=== PATIENT | female | born 1995 | race Caucasian/White ===

== ENCOUNTER 2020-03-09 12:52 | Emergency (ER) | payer MEDICAID, SELFPAY ==
[2020-03-09 13:02] VITALS: BP 121/70; PULSE 80; RESP 18; TEMP 36.8; O2SAT 98; BMI 33.6
--- NOTE | 2020-03-09 13:22 | ED_ITS ---
HPI - URI/Sore Throat General Chief Complaint: Upper Respiratory Symptoms Stated Complaint: flu Time Seen by Provider: 03/09/20 13:14 Source: patient Mode of arrival: ambulatory Limitations: no limitations History of Present Illness MD elicited complaint: cough, rhinorrhea and nasal congestion Onset (ago): day(s) (1) Consistency: constant Severity: mild Description of mucous: clear Able to tolerate fluids by mouth: Yes Exacerbating factors: nothing Relieving factors: nothing Associated symptoms: myalgias Treatments prior to arrival: none Related Data Home Medications Medication Instructions Recorded Confirmed No Known Home Meds 03/09/20 03/09/20 Allergies Allergy/AdvReac Type Severity Reaction Status Date / Time No Known Allergies Allergy Unverified 11/01/19 18:18 [No Known Allergies*] Review of Systems Review of Systems: Yes all other systems are reviewed and are negative [facility], [facility] Past Medical History Medical History No known health problems Social History Social History Advance Directives: No Advance Directives Information Provided: No Physical Exam Vital Signs: Vital Signs: Last Vital Signs Temp 98.3 F 03/09/20 13:02 Pulse 80 03/09/20 13:02 Resp 18 03/09/20 13:02 BP 121/70 03/09/20 13:02 Pulse Ox 98 03/09/20 13:02 Body Mass Index 33.6 Appearance: Alert. Oriented X3. No acute distress. Eyes: Pupils equal, round and reactive to light. ENT: Pharynx normal. Clear rhinorrhea, sinus nontender Neck: Normal inspection. Neck supple. CVS: Normal heart rate and rhythm. Pulses normal. Respiratory: No respiratory distress. Breath sounds normal. Abdomen: Soft and nontender. Bowel sounds are present, no mass palpable, no CVA tenderness Skin: Skin warm and dry. Normal skin color. Normal skin turgor. Extremities: No lower extremity edema. Neuro: Oriented X 3. No motor deficit. No sensory deficit. MDM - URI/Sore Throat MDM Narrative Medical decision making narrative: Patient has upper respiratory symptoms COVID negative no COVID exposure perforation patient advised to keep social distancing likely viral and if the symptoms continues recheck COVID Lab Data Attestation: I reviewed the patient's lab results. Labs: Lab Results 03/09/20 Range/Units 13:51 COVID-19 ([facility]USHBOO) Negative (Negative) COVID-19 Clin Com See Note Discharge Plan Discharge Clinical Impression: Upper respiratory infection Patient Disposition: Home, Self-Care Instructions: Upper Respiratory Infection (ED) Additional Instructions: Drink plenty of fluids your COVID-19 is negative today. Keep social distancing and if not better repeat COVID-19 testing Prescriptions: No Action No Known Home Meds RF: 0 Interventions: ED Discharge Assessment Last Done: 03/09/20 15:39 Discharge Date/Time: 03/09/20 15:39
[2020-03-09 14:23] LABS: COVID-19 Test Negative (Negative)
== END 2020-03-09 15:39 | disposition home or self-care (01) ==
PROVIDERS: Emergency Provider Internal Medicine
DX: J06.9 Acute upper respiratory infection, unspecified (principal); R05 Cough; J34.89 Other specified disorders of nose and nasal sinuses; Z20.822 Contact with and (suspected) exposure to COVID-19
CPT/HCPCS: 36415; 87635; 99283

== ENCOUNTER → 2020-05-19 12:25 | Outpatient (BNVA) | payer MEDICAID, SELFPAY | PROVIDERS: Visit Provider Physician Assistant | DX: E66.9 Obesity, unspecified (principal); Z68.34 Body mass index [BMI] 34.0-34.9, adult | CPT/HCPCS: 99202 ==

== ENCOUNTER 2020-05-22 13:48 | Outpatient (REF) | payer MEDICAID, SELFPAY ==
--- NOTE | ~2020-05-22 | XR_ITS ---
EXAMINATION: XR ANKLE, LEFT CLINICAL INFORMATION: Pain COMPARISON: None TECHNIQUE: AP, lateral, and mortise views of the left ankle. FINDINGS: The bones and soft tissues are normal. No fracture. Alignment is anatomic. Joint spaces are maintained. No joint effusion. XR/XR ankle LT min 3V IMPRESSION: No fracture or dislocation.
== END 2020-05-22 13:49 | disposition home or self-care (01) ==
LOC: HO.XRAY 13:48
PROVIDERS: PCP Internal Medicine; Visit Provider Internal Medicine
DX: S93.402A Sprain of unspecified ligament of left ankle, initial encounter (principal)
CPT/HCPCS: 73610

== ENCOUNTER 2020-06-17 09:35 | Outpatient (REF) | payer MEDICAID, SELFPAY ==
[2020-06-17 10:56] LABS: MANUAL DIFF FLAG NO
[2020-06-17 11:01] LABS: Basophils Percent Auto 0.2 % (0-2); Eosinophils Absolute Auto 0.1 X10*3/uL (0.0-0.4); Eosinophils Percent Auto 1.3 % (0-4); Hematocrit 44.3 % (37-47); Hemoglobin 14.4 g/dl (12.0-16.0); Lymphocytes Absolute Auto 1.7 X10*3/uL (1.2-4.9); Lymphocytes Percent Auto 30.5 % (20-40); Mean Corpuscular HGB Conc 32.5 g/dl (31.0-35.0); Mean Corpuscular Hemoglobin 29.4 pg (27.0-33.0); Mean Corpuscular Volume 90.6 fL (80-98); Mean Platelet Volume 10.7 fL (9.4-12.3); Monocytes Absolute Auto 0.4 X10*3/uL (0.1-1.2); Neutrophils Absolute Auto 3.3 X10*3/uL (2.0-8.3); Platelet Count 199 X10*3/uL (160-400); Red Blood Count 4.89 X10*6/uL (4.20-5.50); Red Cell Distribution Width 13.4 % (11.0-16.0); White Blood Count 5.4 X10*3/uL (4.8-10.8)
[2020-06-17 11:26] LABS: Alanine Aminotransferase 9 U/L (0-31); Albumin Level 4.6 g/dL (3.5-5.0); Alkaline Phosphatase 78 U/L (39-117); Anion Gap 11 (12-20); Aspartate Amino Transferase 11 U/L (5-31); Bilirubin Total 0.5 mg/dL (0.0-1.0); Blood Urea Nitrogen 20 mg/dL (9-16); C Reactive Protein 0.07 mg/dL (< or = 0.50); Calcium 9.7 mg/dL (8.4-10.2); Carbon Dioxide 27 mmol/L (22-29); Chloride 108 mmol/L (96-108); Cholesterol 124 mg/dL; Estimated Glomerular Filt Rate > 60; Glucose Fasting 91 mg/dL (60-99); HDL Cholesterol 46 mg/dL; Iron 54 mcg/dL (30-160); LDL Cholesterol Calculated 72 mg/dl; Percent Iron Saturation 15 % (15-50); Potassium 4.7 mmol/L (3.3-5.1); Sodium 141 mmol/L (135-145); Total Iron Binding Capacity 355 mcg/dL (228-428); Total Protein 7.7 g/dL (6.5-8.0); Triglycerides 34 mg/dL; Unsaturated Iron Binding 301 ug/dL
[2020-06-17 11:42] LABS: Ferritin 9 ng/mL (10-122); TSH reflex Free T4 0.91 uIU/mL (0.32-4.0)
[2020-06-17 11:49] LABS: Estimated Average Glucose 91 mg/dL; Hemoglobin A1c % 4.8 %
[2020-06-17 12:29] LABS: Folate 15.1 ng/mL (> or = 4.0); Vitamin B12 611 pg/mL (200-900)
[2020-06-18 09:47] LABS: Insulin Level Total 9.4 uIU/mL
[2020-06-18 16:41] LABS: Calcium (PTHI) 9.6 mg/dL (8.6-10.2); PTHI 65 pg/mL (14-64)
[2020-06-19 21:22] LABS: Zinc 85 mcg/dL (60-130)
[2020-06-21 18:46] LABS: Vitamin A 33 mcg/dL (38-98)
[2020-06-22 10:41] LABS: Vitamin B1 13 nmol/L (8-30)
== END 2020-06-17 09:36 | disposition home or self-care (01) ==
LOC: HO.LAB 09:35
PROVIDERS: Visit Provider Physician Assistant
DX: E66.01 Morbid (severe) obesity due to excess calories (principal)
CPT/HCPCS: 36415; 80053; 80061; 82607; 82728; 82746; 83036; 83525; 83540; 83970; 84425; 84443; 84590; 84630; 85025; 86140

== ENCOUNTER → 2020-06-19 11:01 | Outpatient (BNVA) | payer MEDICAID, SELFPAY | PROVIDERS: PCP Internal Medicine; Referring Provider Internal Medicine; Visit Provider Dietitian, Registered | DX: E66.9 Obesity, unspecified (principal); Z68.33 Body mass index [BMI] 33.0-33.9, adult; Z98.51 Tubal ligation status; Z71.3 Dietary counseling and surveillance | CPT/HCPCS: 97802 ==

== ENCOUNTER 2020-07-16 13:12 | Emergency (ER) | payer MEDICAID, SELFPAY | END 2020-07-16 14:59 | disposition left against medical advice (07) | PROVIDERS: Emergency Provider Emergency Medicine; PCP Internal Medicine | DX: R11.0 Nausea (principal); R68.83 Chills (without fever) ==

== ENCOUNTER 2020-08-20 09:11 | Outpatient (REF) | payer MEDICAID, SELFPAY ==
[2020-08-25 18:52] LABS: Vitamin A 33 mcg/dL (38-98)
== END 2020-08-20 09:12 | disposition home or self-care (01) ==
LOC: HO.LAB 09:11
PROVIDERS: PCP Internal Medicine; Visit Provider Physician Assistant
DX: E50.9 Vitamin A deficiency, unspecified (principal); E66.9 Obesity, unspecified
CPT/HCPCS: 36415; 84590

== ENCOUNTER → 2020-09-02 11:20 | Outpatient (BNVA) | payer MEDICAID, SELFPAY | PROVIDERS: PCP Internal Medicine; Referring Provider Internal Medicine; Visit Provider Physician Assistant | DX: E66.9 Obesity, unspecified (principal); Z68.34 Body mass index [BMI] 34.0-34.9, adult | CPT/HCPCS: 99212 ==

== ENCOUNTER → 2020-09-24 08:14 | Outpatient (BNVA) | payer MEDICAID, SELFPAY | PROVIDERS: PCP Internal Medicine; Visit Provider Dietitian, Registered | DX: E66.9 Obesity, unspecified (principal); Z68.34 Body mass index [BMI] 34.0-34.9, adult | CPT/HCPCS: 97803 ==

== ENCOUNTER 2021-01-01 13:22 | Outpatient (REF) | payer MEDICAID, SELFPAY | END 2021-01-01 13:23 | disposition home or self-care (01) | LOC: HO.LAB 13:22 | PROVIDERS: PCP Internal Medicine; Visit Provider Internal Medicine | DX: Z20.822 Contact with and (suspected) exposure to COVID-19 (principal) | CPT/HCPCS: C9803; U0003; U0005 ==

== ENCOUNTER 2021-02-08 09:07 | Emergency (ER) | payer MEDICAID, SELFPAY ==
[2021-02-08 10:31] LABS: COVID-19 Test Positive (Negative)
[2021-02-08 16:33] VITALS: BP 128/94; PULSE 80; RESP 18; TEMP 37.2; O2SAT 96; BMI 36.6
--- NOTE | 2021-02-08 16:43 | ED_ITS ---
HPI - General Adult General Chief complaint: General Medical Stated complaint: Covid symptoms Time Seen by Provider: 02/08/21 09:08 Source: patient Mode of arrival: ambulatory Limitations: no limitations History of Present Illness HPI narrative: 25-year-old female here with reports of runny nose, cough and subjective fever since yesterday. The patient has no medical history. She is here with her daughters have similar symptoms. She denies any shortness of breath, difficulty breathing, chest pain, vomiting, diarrhea, abdominal pain, rash or joint pain. She did received 2 COVID vaccine Related Data Home Medications Medication Instructions Recorded Confirmed Vitamin D PO 05/19/20 09/02/20 Previous Rx's Medication Instructions Recorded vitamin A 10,000 unit capsule 20,000 unit PO DAILY 60 Days #120 08/27/20 cap acetaminophen 325 mg tablet 650 mg PO Q4H PRN #30 tab 02/08/21 (Tylenol) ibuprofen 600 mg tablet 600 mg PO Q8H PRN #30 tab 02/08/21 Allergies Allergy/AdvReac Type Severity Reaction Status Date / Time No Known Allergies Allergy Unverified 11/01/19 18:18 [No Known Allergies*] Review of Systems Review of Systems: Yes all other systems are reviewed and are negative Constitutional: Constitutional: Reports no additional constitutional complaints, Denies body ache(s), Denies chills, Reports fever(s), Denies hea dache(s) and Denies weakness Eyes: Eyes: Reports no additional eye complaints and Denies change in vision ENT: Reports system reviewed and no additional complaints, except as documented, Denies dizziness, Denies headache(s), Denies nasal congestion, Reports nasal discharge and Denies neck pain Cardiovascular: Cardiovascular: Reports no additional cardiovascular complaints, Denies chest pain, Denies leg edema and Denies dyspnea Respiratory: Respiratory: Reports no additional respiratory complaints, Reports cough and Denies dyspnea Gastrointestinal: Gastrointestinal: Reports no additional gastrointestinal complaints, Denies abdominal pain, Denies diarrhea, Denies nausea and Denies vomiting Genitourinary: Genitourinary: Reports no additional female genitourinary complaints and Denies urinary incontinence Musculoskeletal: Musculoskeletal: Reports no additional musculoskeletal complaints, Denies back pain, Denies arthralgias, Denies joint swelling, Denies neck pain, Denies numbness and Denies tingling Integumentary/Breasts: Skin/Breast: Reports system reviewed and no additional complaints, except as docu and Denies rash Neurologic: Reports system reviewed and no additional complaints, except as documented, Denies Abnormal speech present, Denies dizziness, Denies headache(s), Denies numbness, Denies tingling and Denies weakness PMFSH Past Medical History Attestation statement: The following information was validated with the patient. Source: old records reviewed and nursing notes reviewed Medical History Obesity (BMI 35.0-39.9 without comorbidity) Vitamin A deficiency Surgical History Hx of tubal ligation Family History Family History Mother Depression Father Back ache Brother No problems noted. Daughter No problems noted. Daughter No problems noted. Son No problems noted. Social History Social History Alcohol intake: never Smoked in Last 30 Days: No Use of substances other than those prescribed or required for medical reasons: No Advance Directives: No Advance Directives Information Provided: Yes Patient : No Physical Exam Vital Signs: Vital Signs: Last Vital Signs Temp 98.9 F 02/08/21 16:33 Pulse 80 02/08/21 16:33 Resp 18 02/08/21 16:33 BP 128/94 H 02/08/21 16:33 Pulse Ox 96 02/08/21 16:33 BMI result Body Mass Index 36.6 Const: General: cooperative, healthy appearing, comfortable and no acute distress Orientation/consciousness: patient oriented x3 Limitations: no limitations HENMT: Head: Yes normal to inspection Ears: hearing grossly normal bilaterally and TM's normal bilaterally General nose exam: Normal external nose present Face and sinus: Yes normal facial exam Mouth: Normal oral and palatal mucosa present Throat: Yes posterior oropharynx normal, Yes tonsils normal and Yes uvula midline Eyes: General: appearance normal, both eyes and all related structures Pupils: Equal, round and reactive pupils present Neck: Neck: Yes normal visual inspection, Yes full ROM and Yes no lymphadenopathy Chest: Chest palpation & inspection: normal inspection of the chest Resp: Effort & Inspection: normal respiratory effort Auscultation: clear to auscultation bilaterally Cardio: Rate: regular rate Rhythm: regular rhythm Peripheral pulses: Peripheral pulses 2+ throughout GI: Inspection: Yes normal to inspection Palpation (GI): Soft to palpation and nontender Auscultation: normal bowel sounds Back/Spine/Pelvis: Thoracic/Lumbar Spine: thoracic and lumbar spine normal to inspection Skin: General skin exam: no rashes or lesions noted Neuro: General: patient oriented x3, no focal motor deficits and normal sensation to monofilament Cranial nerves: Yes Equal, round and reactive pupils present Cognition (Neuro): normal cognition Speech: No Abnormal speech present Gait exam (Neuro): Normal gait present Motor exam (neuro): 5/5 motor strength present throughout Extrem: General: Yes normal to inspection, Yes no pedal edema and Yes no calf tenderness Course Course Course Narrative: 25-year-old female here with reports of cough, runny nose, subjective fevers since yesterday. Patient is here with her daughters have similar symptoms. Her vitals are stable. Exam is benign. No hypoxia or tachypnea. COVID screen is positive. Reviewed quarantine with the patient. Reviewed worrisome times and when to return to the emergency department. Comfortable discharge home. Medical Decision Making Lab Data Labs: Lab Results 02/08/21 Range/Units 10:15 COVID-19 ([facility]USHBOO) Positive A (Negative) COVID-19 Clin Com See Note Discharge Plan Discharge Clinical Impression: COVID-19 Patient Disposition: Home, Self-Care Instructions: COVID-19 (Coronavirus Disease 2019) (ED) Additional Instructions: Quarantine for 10 days from onset of symptoms Increase fluids, rest Motrin or Tylenol for pain or fever as needed Prescriptions: New ibuprofen 600 mg tablet 600 mg PO Q8H PRN (Reason: fever or pain) Qty: 30 RF: 0 acetaminophen [Tylenol] 325 mg tablet 650 mg PO Q4H PRN (Reason: fever or pain) Qty: 30 RF: 0 No Action vitamin A 10,000 unit capsule 20,000 unit PO DAILY 60 Days Qty: 120 RF: 0 Vitamin D PO RF: 0 Referrals: Nallely Denny MD [Primary Care Provider] - 2 days Stand Alone Forms: Work/School Release Interventions: ED Discharge Assessment Last Done: 02/08/21 16:51 Discharge Date/Time: 02/08/21 16:56
== END 2021-02-08 16:56 | disposition home or self-care (01) ==
PROVIDERS: Emergency Medicine; Emergency Provider Emergency Medicine Emergency Medical Services; PCP Internal Medicine
DX: U07.1 COVID-19 (principal)
CPT/HCPCS: 36415; 87635; 99283

== ENCOUNTER 2021-03-24 19:29 | Emergency (ER) | payer MEDICAID, SELFPAY ==
[2021-03-24 19:44] VITALS: BP 120/58; PULSE 74; RESP 18; TEMP 36.5; O2SAT 97; BMI 35.4
[2021-03-24 22:07] VITALS: BP 116/55; PULSE 73; RESP 18; TEMP 36.5; O2SAT 96
[2021-03-25 00:16] VITALS: BP 109/54; PULSE 77; RESP 18; TEMP 36.5; O2SAT 98
[2021-03-25 00:23] LABS: Basophils Percent Auto 0.1 % (0-2); Eosinophils Absolute Auto 0.1 X10*3/uL (0.0-0.4); Eosinophils Percent Auto 1.3 % (0-4); Hematocrit 42.8 % (37.0-47.0); Hemoglobin 14.1 g/dl (12.0-16.0); Imm Gran Abs Auto 0.02 X10*3/uL (0.00-0.03); Imm Gran Pct Auto 0.3 % (0.0-0.4); Lymphocytes Absolute Auto 2.2 X10*3/uL (1.2-4.9); Lymphocytes Percent Auto 31.6 % (20-40); MANUAL DIFF FLAG NO; Mean Corpuscular HGB Conc 32.9 g/dl (31.0-35.0); Mean Corpuscular Hemoglobin 28.9 pg (27.0-33.0); Mean Corpuscular Volume 87.7 fL (80.0-98.0); Mean Platelet Volume 9.6 fL (9.4-12.3); Monocytes Absolute Auto 0.8 X10*3/uL (0.1-1.2); Monocytes Percent Auto 11.7 % (2-11); Neutrophils Absolute Auto 3.8 x10*3/uL (2.0-8.3); Platelet Count 194 X10*3/uL (160-400); Red Blood Count 4.88 X10*6/uL (4.20-5.50); Red Cell Distribution Width 14.2 % (11.0-16.0); White Blood Count 6.8 X10*3/uL (4.8-10.8)
[2021-03-25 00:48] LABS: Alanine Aminotransferase 13 U/L (0-31); Albumin Level 4.2 g/dL (3.5-5.0); Alkaline Phosphatase 81 U/L (39-117); Anion Gap 13 (12-20); Aspartate Amino Transferase 16 U/L (5-31); Bilirubin Total 0.8 mg/dL (0.0-1.0); Blood Urea Nitrogen 12 mg/dL (9-16); Calcium 9.2 mg/dL (8.4-10.2); Carbon Dioxide 27 mmol/L (22-29); Chloride 102 mmol/L (96-108); Creatinine Clr Calc Pharmacy 112.5; Estimated Glomerular Filt Rate > 60; Glucose Random 100 mg/dL (60-115); Sodium 138 mmol/L (135-145); Total Protein 7.7 g/dL (6.5-8.0)
--- NOTE | 2021-03-25 01:58 | ED_ITS ---
HPI - Headache General Chief Complaint: Headache Stated Complaint: migraine, eye pain, high BP Time Seen by Provider: 03/25/21 01:12 Source: patient Mode of arrival: ambulatory History of Present Illness HPI Narrative: 25-year-old female with reason history of migraines and currently on sumatriptan, patient states that the migraines are somewhat associated with her menstrual cycle and 10 to occur 4-5 days after completion. Patient states the headache that she is experiencing now has the same onset and progression as her previous 1. She did call her primary care provider this afternoon and her dosage of sumatriptan was increased. Otherwise, she denies any fevers, chills, shortness of breath, chest pain/palpitations, eye blurriness although in the triage note she states right eye blurred vision she is not experiencing that at this time and there are no other focal complaints. Related Data Home Medications Medication Instructions Recorded Confirmed Vitamin D PO 05/19/20 09/02/20 Previous Rx's Medication Instructions Recorded vitamin A 10,000 unit capsule 20,000 unit PO DAILY 60 Days #120 08/27/20 cap acetaminophen 325 mg tablet 650 mg PO Q4H PRN #30 tab 02/08/21 (Tylenol) ibuprofen 600 mg tablet 600 mg PO Q8H PRN #30 tab 02/08/21 Allergies Allergy/AdvReac Type Severity Reaction Status Date / Time No Known Allergies Allergy Verified 03/24/21 19:44 [No Known Allergies*] Review of Systems Review of Systems: Pertinent positives and negatives as stated in HPI 10 point review of systems otherwise negative. [facility] Past Medical History Source: nursing notes reviewed Medical History Obesity (BMI 35.0-39.9 without comorbidity) Vitamin A deficiency Surgical History Hx of tubal ligation Family History Family History Mother Depression Father Back ache Brother No problems noted. Daughter No problems noted. Daughter No problems noted. Son No problems noted. Social History Social History Alcohol intake: never Advance Directives: No Patient : No Physical Exam Vital Signs: Vital Signs: Last Vital Signs Temp 97.7 F 03/25/21 00:16 Pulse 77 03/25/21 00:16 Resp 18 03/25/21 00:16 BP 109/54 L 03/25/21 00:16 Pulse Ox 98 03/25/21 00:16 BMI result Body Mass Index 35.4 VITAL SIGNS: Reviewed. GENERAL: Well developed, well nourished, in no acute distress. HEAD: Normocephalic/atraumatic, EYES: PERRLA, EOMI intact without pain, no nystagmus; there is a noted conjunctival hemorrhage in the right eye (associated with patient's nausea or vomiting the previous day). EARS: Ext canals without abnormality, TMs non-bulging and non-erythematous NOSE: Nares patent bilateral OROPHARYNX: no oral lesions noted, posterior pharynx clear and non-erythematous without noted tonsillar enlargement/erythema/exudates NECK: Supple, no adenopathy LUNGS: Normal breath sounds. No adventitious sounds or accessory muscle use. SpO2<98> CARDIOVASCULAR: Regular rate and rhythm without noted murmurs, no JVD or lower extremity edema. ABDOMEN: Soft, non-tender, non-distended with bowel sounds. SKIN: Inspection of the skin reveals no rashes NEUROLOGIC: Alert and oriented x 4. Strength and sensation to light touch were grossly intact x 4, no pronator drift, no facial asymmetry, cranial nerves 2-12 are grossly intact. Course Course Course Narrative: This is a 25-year-old female with history and clinical presentation consistent with her typical migraine pattern and low clinical suspicion for any neurologic deficits. Review of all investigations is otherwise negative for acute findings to better explain patient's presentation an after receiving IV fluids/Reglan/Benadryl/Toradol patient states that her symptoms have completely resolved. She will follow-up with her primary care provider in is otherwise discharged home in stable condition. MDM - Headache Lab Data Result diagrams: 03/25/21 00:15 03/25/21 00:15 Labs: Lab Results 03/25/21 03/25/21 Range/Units 00:15 00:15 WBC 6.8 (4.8-10.8) X10*3/uL RBC 4.88 (4.20-5.50) X10*6/uL Hgb 14.1 (12.0-16.0) g/dl Hct 42.8 (37.0-47.0) % MCV 87.7 (80.0-98.0) fL MCH 28.9 (27.0-33.0) pg MCHC 32.9 (31.0-35.0) g/dl RDW 14.2 (11.0-16.0) % Plt Count 194 (160-400) X10*3/uL MPV 9.6 (9.4-12.3) fL Immature Gran % (Auto) 0.3 (0.0-0.4) % Neut % (Auto) 55.0 (45-73) % Lymph % (Auto) 31.6 (20-40) % [place] % (Auto) 11.7 H (2-11) % Eos % (Auto) 1.3 (0-4) % Baso % (Auto) 0.1 (0-2) % Lymph # (Auto) 2.2 (1.2-4.9) X10*3/uL [place] # (Auto) 0.8 (0.1-1.2) X10*3/uL Eos # (Auto) 0.1 (0.0-0.4) X10*3/uL Baso # (Auto) 0.0 (0.0-0.2) X10*3/uL Abs Immat Gran (auto) 0.02 (0.00-0.03) X10*3/uL Absolute Neuts (auto) 3.8 (2.0-8.3) x10*3/uL Absolute Nucleated RBC 0.000 (0.0-0.012) X10*3/uL Nucleated RBC % (auto) 0.0 (0.0-0.2) /100WBC Sodium 138 (135-145) mmol/L Potassium 4.0 (3.3-5.1) mmol/L Chloride 102 (96-108) mmol/L Carbon Dioxide 27 (22-29) mmol/L Anion Gap 13 (12-20) BUN 12 (9-16) mg/dL Creatinine 0.81 (0.5-1.4) mg/dL Estim Creat Clear Calc 112.5 Estimated GFR > 60 Random Glucose 100 (60-115) mg/dL Calcium 9.2 (8.4-10.2) mg/dL Total Bilirubin 0.8 (0.0-1.0) mg/dL AST 16 D (5-31) U/L ALT 13 (0-31) U/L Alkaline Phosphatase 81 (39-117) U/L Total Protein 7.7 (6.5-8.0) g/dL Albumin 4.2 (3.5-5.0) g/dL Discharge Plan Discharge Clinical Impression: Migraine Patient Disposition: Home, Self-Care Instructions: Migraine Headache (ED) Additional Instructions: 1. Resume home medications as prescribed. 2. Please follow-up with your primary care provider in the next 1-2 days for re- evaluation further outpatient management. Return to the ER for acute worsening of symptoms. Prescriptions: No Action vitamin A 10,000 unit capsule 20,000 unit PO DAILY 60 Days Qty: 120 0RF ibuprofen 600 mg tablet 600 mg PO Q8H PRN (Reason: fever or pain) Qty: 30 0RF acetaminophen [Tylenol] 325 mg tablet 650 mg PO Q4H PRN (Reason: fever or pain) Qty: 30 0RF Vitamin D PO 0RF
[2021-03-25 02:00] VITALS: BP 124/88; PULSE 73; RESP 18; O2SAT 98
[2021-03-25] MEDS: 0.9 % Sodium Chloride 1,000 ML 999 ML IV (02:15)
[2021-03-25] MEDS: Ketorolac Tromethamine 30 MG/ML VIAL 15 MG IVPUSH (02:15)
[2021-03-25] MEDS: Metoclopramide HCl 10 MG/2 ML VIAL IVPUSH (02:16)
[2021-03-25] MEDS: diphenhydrAMINE HCL 50 MG/ML VIAL 25 MG IVPUSH (02:16)
--- NOTE | 2021-03-25 03:55 | PC.NURSE ---
Pt was awakened from her sleep easily and reports resolution of headache. Pt aware of discharge paperwork however reports driving herself. Staff to present discharge paperwork to patient at 6am to allow additional time for her to rest (s/t benadryl admin). electrical solderer aware
== END 2021-03-25 07:05 | disposition home or self-care (01) ==
PROVIDERS: Emergency Provider Student in an Organized Health Care Education/Training Program
DX: G43.909 Migraine, unspecified, not intractable, without status migrainosus (principal)
CPT/HCPCS: 36415; 80053; 85025; 96361; 96374; 96375; 99284; J1200; J1885; J2765

== ENCOUNTER 2021-05-07 09:38 | Outpatient (REF) | payer MEDICAID, SELFPAY ==
--- NOTE | ~2021-05-07 | XR_ITS ---
EXAMINATION: XR LUMBOSACRAL SPINE WITH OBLIQUES CLINICAL INFORMATION: Sacroiliitis. COMPARISON: None TECHNIQUE: AP, both oblique, and lateral views of the lumbar spine. Lateral view of the lumbosacral junction. FINDINGS: The vertebral bodies and posterior elements are normal. No spondylolysis defect is seen on the oblique views. The disc spaces are preserved and the vertebral alignment is normal. There is minimal anterior spondylosis of the T11-T12 upper endplates. The paraspinal soft tissues are normal. XR/XR sacrum coccyx min 2V IMPRESSION: There is minimal anterior spondylosis of the T11-T12 upper endplates. The examination is otherwise unremarkable. EXAMINATION: XR SACRUM AND COCCYX CLINICAL INFORMATION: Sacroiliitis. COMPARISON: None TECHNIQUE: 2 views of the sacrum and 2 views of the coccyx were obtained. FINDINGS: There are no fractures. No bone, joint or soft tissue abnormality is demonstrated. The sacroiliac and included hip joints are symmetric and well-maintained. The pubic symphysis is intact. IMPRESSION: Unremarkable examination.
--- NOTE | ~2021-05-07 | XR_ITS ---
EXAMINATION: XR LUMBOSACRAL SPINE WITH OBLIQUES CLINICAL INFORMATION: Sacroiliitis. COMPARISON: None TECHNIQUE: AP, both oblique, and lateral views of the lumbar spine. Lateral view of the lumbosacral junction. FINDINGS: The vertebral bodies and posterior elements are normal. No spondylolysis defect is seen on the oblique views. The disc spaces are preserved and the vertebral alignment is normal. There is minimal anterior spondylosis of the T11-T12 upper endplates. The paraspinal soft tissues are normal. XR/XR lumbar spine 4V min IMPRESSION: There is minimal anterior spondylosis of the T11-T12 upper endplates. The examination is otherwise unremarkable. EXAMINATION: XR SACRUM AND COCCYX CLINICAL INFORMATION: Sacroiliitis. COMPARISON: None TECHNIQUE: 2 views of the sacrum and 2 views of the coccyx were obtained. FINDINGS: There are no fractures. No bone, joint or soft tissue abnormality is demonstrated. The sacroiliac and included hip joints are symmetric and well-maintained. The pubic symphysis is intact. IMPRESSION: Unremarkable examination.
== END 2021-05-07 09:39 | disposition home or self-care (01) ==
LOC: HO.XRAY 09:38
PROVIDERS: Absent Provider Internal Medicine; PCP Internal Medicine; Visit Provider Emergency Medicine
DX: M46.1 Sacroiliitis, not elsewhere classified (principal)
CPT/HCPCS: 72110; 72220

== ENCOUNTER 2021-05-21 14:00 | Outpatient (RCR) | payer MEDICAID, SELFPAY ==
--- NOTE | 2021-05-14 13:06 | MHC.OT.OEV ---
[address] [phone] F: [phone] Occupational Therapy Evaluation Diagnosis: Left Carpal Tunnel Syndrome Date of Onset: 04/14/20 Attending Provider: Dr Nallely Denny Prescribed Treatment: Eval andTreat History of Current Condition: Pt referred to OT for left carpal tunnel syndrome. Pt reports having shooting pain in dorsal D3-D4 down to elbow, dorsal thumb and volar wrist for approximately one year, with waxing and waning symptoms. Pt reports increased pain for the past 2 weeks. Significant Medical History: Hx of tubal ligation. Patient Goals: less pain Hand Dominance: Right Observations: Pt observed to be wearing a wrist based compression sleave. 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 Living Situation, Family and/or Social Support: Lives significant other and 3 kids. 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 Difficulty with washing dishes, cooking - holding pots/pans, getting nails done and manicurist hold finger in an odd way. Significant other assists when needed. Sleep: Sometimes having difficulty sleeping when pain is high. Driving: Pain in left hand with driving in thumb. Pt reports pain after a 4.5hr drive. Pain Assessment Pain Location and Description: Pain in volar thumb, and volar D3-D4 shooting up toward elbow. Pain at rest 2/10. Pain when aggravated 8-9/10 Aggravating Factors: Difficulty with washing dishes, cooking - holding pots/pans, pulling up pants, tying balloons for department head work, getting nails done and manicurist hold finger in an odd way. Alleviating Factors: Compression sleeve relieves pain Ibuprofen relieves pain No trial of ice of heat Skin and Soft Tissue Assessment Skin and Soft Tissue: Swelling Nerve assessment Ulnar Nerve: WNL Median Nerve: WNL Radial Nerve: WNL Sensory Assessment Comments: Pt reports general left hand tingling at times [place] 3.61 B/L hands Edema Assessment Comments: Thenar eminensce, palmar metacarpal surface between D3 and D4. Special Tests Comments: Tinel Test at carpal tunnel (+) Tinel Test at lateral and medial epicondyle (-) AROM(PROM) Strength Cervical Cervical Flexion: Cervical Extension: Cervical Lateral Flexion: Cervical Rotation: Comments: WFL Some tightness in left scalenes, tender to palpate upper trap Shoulder Flexion: Extension: Abduction: Internal Rotation: External Rotation: Comments: Flexion: Extension: Abduction: Internal Rotation: External Rotation: Comments: Elbow Flexion: Extension: Pronation: Supination: Comments: WFL Flexion: Extension: Pronation: Supination: Comments: Wrist Flexion: Extension: Ulnar Deviation: Radial Deviation: Comments: WFL Flexion: Extension: Ulnar Deviation: Radial Deviation: Comments: Thumb Thumb CMC Flexion: Thumb MCP Flexion: Thumb IP Flexion: Radial Abduction: Palmar Abduction: Marathon (Kapandji 0-10): Comments: WFL Digits Index MCP: PIP: DIP: Long MCP: PIP: DIP: Ring MCP: PIP: DIP: Small MCP: PIP: DIP: Comments: WFL Gross Grasp: R 55lbs L 45lbs Lateral Pinch: Two-Point Pinch: Three-Jaw Lev: Comments: Patient Education Primary Language: Hungarian Arch Support Maker Required: No Current Knowledge: Understands information with skills for self-management Teaching Method: Demonstration Handouts Verbal Education Needs Identified on Evaluation: ADL's Disease Information Exercise Pain Safety How did patient/family demonstrate learning? Patient demonstrates Patient verbalizes Barriers to Learning: None Readiness for Learning: Accepting Who was educated? Patient Comments: Plan of Care Assessment: 25 yo female referred to OT for right carpal tunnel. Pt reports having waxing and waning pain in dorsal D3-D4 down to elbow, dorsal thumb and volar wrist for approximately one year, with symptoms worsening over the past two weeks. 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 Pt reports having difficulty with tying balloons, pulling up pants, cooking tasks that including gripping and grasping and washing dishes. 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 Pt to cont OT services for pain management, postural improvements and strengthening in order to promote best abilities to function. STG Duration: 3 weeks Short Term Goals: Pt Ind with HEP Pt to report <3/10 pain with light activity Pt to demo good postural awareness when completing daily activities Pt to demo/verbalize activity modification to decrease pain Pt left deer farm worker strength >50lbs LTG Duration: Mixer Driver Goals: (same as above) Frequency and Duration: The patient will be seen 2x/week for 3 weeks Treatment Plan: Therapeutic Exercise Therapeutic Activity Home Exercise Program Patient Education Edema Control ADL Training Ultrasound Paraffin Fluidotherapy MHP Cold Packs Soft Tissue Mobilization Kinesiotaping Electronically Signed By: Malu Godinez OT/s Reviewed/agree with student documentation: Yes Therapist: Aye Braswell OTR/L Please sign and return to therapist, Thank you for your referral.
--- NOTE | 2021-05-28 12:14 | MHC.OT.DC ---
[address] [phone] F: [phone] Occupational Therapy Discharge Note Provider: Dr Sampson Diagnosis: Left Carpal Tunnel Syndrome Date of Evaluation: 05/14/21 Date of Discharge: 05/28/21 Treatments to Date: 2 Cancellations to Date: 2 No Shows to Date: 1 Discharge Status: Visit Non-compliance Discharge Summary: Villa was seen for initial OT assessment and one follow up visit only. She had reported hx of migraines and occasional visual changes, also pain radiating down her neck at times. UE symptoms are inconsistent with specific nerve compression, but may be more cervical nature and/or related to upper back and neck strain. She demo'd good follow through w/ HEP and appeared motivated, but has since missed three appointments. We will be discharging at this time in accordance to our cancel/no-show policy. Electronically Signed By: JUSTIN Leyva/Jim CHT Reviewed/agree with student documentation: N/A Therapist: JUSTIN Leyva/Jim Please Sign and return to therapist, thank you for your referral.
== END 2021-05-28 12:15 | disposition home or self-care (01) ==
LOC: HO.OT 14:00
PROVIDERS: PCP Internal Medicine; Visit Provider Internal Medicine
DX: G56.02 Carpal tunnel syndrome, left upper limb (principal)
CPT/HCPCS: 97110; 97140; 97165

== ENCOUNTER 2022-04-03 10:10 | Emergency (ER) | payer MEDICAID, SELFPAY ==
--- NOTE | 2022-04-03 11:32 | ED_ITS ---
HPI - Headache General Chief Complaint: Headache <Caroline Amador NP - Last Filed: 04/03/22 11:35> Stated Complaint: head pressure <Caroline Amador NP - Last Filed: 04/03/22 11:35> Time Seen by Provider: 04/03/22 11:55 <Caroline Amador NP - Last Filed: 04/03/22 11:35> Source: patient <Carlyn Ernst CNP - Last Filed: 04/03/22 17:04> Mode of arrival: ambulatory <Carlyn Ernst CNP - Last Filed: 04/03/22 17:04> Limitations: no limitations <Carlyn Ernst CNP - Last Filed: 04/03/22 17:04> History of Present Illness HPI Narrative: Patient is a 26-year-old female who presents to emergency department for evaluation of head pressure and flashes. She states the past week she has been experiencing episodes of hot flashes and she develops diffuse pressure throughout her head or these episodes are occurring approximately 15-20 times throughout the day, lasting only a few minutes, and resolves if she sits down or sits herself in front of a fan. She denies any actual headache with this. She is unable to identify any exacerbating factors. States it is not made worse with any position changes. Denies fevers, headache, dizziness, rhinorrhea, nasal congestion, ear pain, sore throat, cough, shortness of breath, difficulty breathing, nausea, vomiting, abdominal pain, possibility of , gender urinary symptoms, numbness or tingling of her extremities. She has seen her primary care provider, reportedly has had normal blood work done, was advised to take ibuprofen every 8 hours and follow-up outpatient. <Carlyn Ernst CNP - Last Filed: 04/03/22 17:04> Related Data Home Medications: Home Medications Medication Instructions Recorded Confirmed Vitamin D PO 05/19/20 09/02/20 Previous Rx's Medication Instructions Recorded vitamin A 10,000 unit capsule 20,000 unit PO DAILY 2 months #120 08/27/20 caps acetaminophen 325 mg tablet 650 mg PO Q4H PRN fever or pain 02/08/21 (Tylenol) #30 tabs ibuprofen 600 mg tablet 600 mg PO Q8H PRN fever or pain 02/08/21 #30 tabs cetirizine 10 mg tablet (Zyrtec) 10 mg PO DAILY #10 tabs 04/03/22 <Caroline Amador NP - Last Filed: 04/03/22 11:35> Allergies/Adverse Reactions: Allergies Allergy/AdvReac Type Severity Reaction Status Date / Time No Known Allergies Allergy Verified 03/24/21 19:44 [No Known Allergies*] <Caroline Amador NP - Last Filed: 04/03/22 11:35> Review of Systems Review of Systems: Yes all other systems are reviewed and are negative <Sa nika Ernst CNP - Last Filed: 04/03/22 17:04> FOR[facility]LY [facility] Past Medical History Attestation statement: The following information was validated with the patient. <Carlyn Ernst CNP - Last Filed: 04/03/22 17:04> Source: old records reviewed <Carlyn Ernst CNP - Last Filed: 04/03/22 17:04> Medical History: Medical History Obesity (BMI 35.0-39.9 without comorbidity) Vitamin A deficiency <Caroline Amador NP - Last Filed: 04/03/22 11:35> Surgical History: Surgical History Hx of tubal ligation <Caroline Amador NP - Last Filed: 04/03/22 11:35> Family History Family History: Family History Mother Depression Father Back ache Brother No problems noted. Daughter No problems noted. Daughter No problems noted. Son No problems noted. <Caroline Amador NP - Last Filed: 04/03/22 11:35> Social History Social History: Social History Alcohol intake: never Use of substances other than those prescribed or required for medical reasons: No Advance Directives: No Advance Directives Information Provided: No <Caroline Amador NP - Last Filed: 04/03/22 11:35> Physical Exam Vital Signs: Vital Signs: Last Vital Signs Temp 98 F 04/03/22 11:33 Pulse 74 04/03/22 11:33 Resp 18 04/03/22 11:33 BP 134/73 04/03/22 11:33 Pulse Ox 99 04/03/22 11:33 O2 Del Method 04/03/22 11:33 BMI result Body Mass Index 37.5 <Acrolinemary Amador NP - Last Filed: 04/03/22 11:35> Vital Signs: Last Vital Signs Temp 98 F 04/03/22 11:33 Pulse 74 04/03/22 11:33 Resp 18 04/03/22 11:33 BP 134/73 04/03/22 11:33 Pulse Ox 99 04/03/22 11:33 O2 Del Method 04/03/22 11:33 BMI result Body Mass Index 37.5 <Carlyn Ernst CNP - Last Filed: 04/03/22 17:04> Appearance: Alert.?Oriented to person, place and time. No acute distress.?Normal affect. Eyes: Pupils equal, round and reactive to light.? ENT: Pharynx normal.??Bilateral otitis media with effusion, clear fluid behind the TM, no bulging, cloudiness, or opaque fluid, no air-fluid levels, no acute pain. She does have intermittent fullness, no decreased muffled hearing. Bilateral nasal turbinates erythematous. Neck: Normal inspection.? Neck supple.?? CVS: Heart sounds normal. Normal heart rate and rhythm.? Pulses normal.?? Respiratory: No respiratory distress.? Lung sounds clear to auscultation bilaterally?? Abdomen: Soft and non-tender. Skin: Skin warm and dry.? Normal skin color.? Extremities: No lower extremity edema.? Neuro: Moves all extremities spontaneously. Sensation intact bilaterally. CN II- XII intact. No focal neuro deficits. Ambulates with normal steady gait. <Carlyn Ernst CNP - Last Filed: 04/03/22 17:04> Course Course Course Narrative: This is a rapid medical exam. Deferred additional HPI, ROS, PE to primary provider. 26 yo female healthy here with complaints of head pressure/dizziness x 1 week. Has history of migraines but this feels different. Not worsened with position changes. Has been to PCP twice for this complaint. Will obtain labs, viral testing. VSS <Caroline Amador NP - Last Filed: 04/03/22 11:35> Reevaluation(s) Reevaluation #1: CBC, BMP unremarkable, COVID-19 and influenza testing are negative. negative. Discussed these findings with patient. Discussed short course of antihistamine, outpatient follow-up with primary care provider. Reviewed worrisome signs and symptoms that would warrant re-evaluation in the emergency department. All questions answered. <Carlyn Ernst CNP - Last Filed: 04/03/22 17:04> Time: 14:51 <Carlyn Ernst CNP - Last Filed: 04/03/22 17:04> Medical Decision Making Medical Decision Making MDM Narrative: Patient is a 26-year-old female who presents emergency department for evaluation of hot flashes/head pressure. Of note she was seen in the emergency department 03/25/2022 for evaluation of a migraine headache. She had CBC and CMP at that time which were overall unremarkable. At this time she denies symptoms in consistent in my ER/headache. In fact she denies any true headache. She reports that she has been seen by her primary care provider twice in the past week for her current symptoms, states that she had blood work including thyroid testing which when she called the office yesterday they reported her labs to be normal. She is advised to take ibuprofen every 8 hours and follow-up. At this time, she has no focal neurological deficits upon examination. Physical examination notable for otitis media with effusion, bilateral nasal turbinates are erythematous, however without any rhinitis or upper respiratory symptoms. Not consistent with acute otitis media, do not think antibiotics are warranted at this time. Discussed with patient that her symptoms may be secondary to recent viral infection, allergy type reaction. At this time I do not have any suspicion for acute intracranial process, or space-occupying lesion, I do not think CT of the head would be warranted at this time. She is overall well-appearing, nontoxic, afebrile. She is tolerating oral intake. Labs were obtained from rapid medical examination, in addition a viral testing, will review these results. Likely patient to be discharged home, and outpatient follow-up with primary care provider. <Carlyn Orlando MARY Ernst - Last Filed: 04/03/22 17:04> Differential Diagnosis Differential Diagnoses: The differential diagnosis associated with the presentation includes (As noted above) <Carlyn Orlando MARY Ernst - Last Filed: 04/03/22 17:04> Lab Data MDM Lab Attestation statement: I reviewed the patient's lab results. <Carlyndaylin Ernst CNP - Last Filed: 04/03/22 17:04> Result Diagrams: 04/03/22 12:25 04/03/22 12:25 <Caroline Amador NP - Last Filed: 04/03/22 11:35> Labs: Lab Results 04/03/22 04/03/22 04/03/22 Range/Units 12:25 12:25 12:25 WBC 6.3 (4.8-10.8) X10*3/uL RBC 5.11 (4.20-5.50) X10*6/uL Hgb 14.5 (12.0-16.0) g/dl Hct 44.8 (37.0-47.0) % MCV 87.7 (80.0-98.0) fL MCH 28.4 (27.0-33.0) pg MCHC 32.4 (31.0-35.0) g/dl RDW 13.7 (11.0-16.0) % Plt Count 206 (160-400) X10*3/uL MPV 9.7 (9.4-12.3) fL Immature Gran % (Auto) 0.2 (0.0-0.4) % Neut % (Auto) 64.7 (45-73) % Lymph % (Auto) 26.7 (20-40) % Holmes % (Auto) 6.6 (2-11) % Eos % (Auto) 1.3 (0-4) % Baso % (Auto) 0.5 (0-2) % Lymph # (Auto) 1.7 (1.2-4.9) X10*3/uL Holmes # (Auto) 0.4 (0.1-1.2) X10*3/uL Eos # (Auto) 0.1 (0.0-0.4) X10*3/uL Baso # (Auto) 0.0 (0.0-0.2) X10*3/uL Abs Immat Gran (auto) 0.01 (0.00-0.03) X10*3/uL Absolute Neuts (auto) 4.1 (2.0-8.3) x10*3/uL Absolute Nucleated RBC 0.000 (0.0-0.012) X10*3/uL Nucleated RBC % (auto) 0.0 (0.0-0.2) /100WBC Sodium 141 (135-145) mmol/L Potassium 4.2 (3.3-5.1) mmol/L Chloride 106 (96-108) mmol/L Carbon Dioxide 26 (22-29) mmol/L Anion Gap 13 (12-20) BUN 12 (9-16) mg/dL Creatinine 0.71 (0.5-1.4) mg/dL Estim Creat Clear Calc 131.3 Estimated GFR > 60 Random Glucose 93 (60-115) mg/dL Calcium 9.1 (8.4-10.2) mg/dL Beta HCG, Quant < 2 mIU/mL COVID-19 (KHUSHBOO) Negative (Negative) COVID-19 Clin Com See Note Influenza Type A (NONA) (Negative) Influenza Type B (NONA) (Negative) Influenza A & B Note 04/03/22 Range/Units 12:25 WBC (4.8-10.8) X10*3/uL RBC (4.20-5.50) X10*6/uL Hgb (12.0-16.0) g/dl Hct (37.0-47.0) % MCV (80.0-98.0) fL MCH (27.0-33.0) pg MCHC (31.0-35.0) g/dl RDW (11.0-16.0) % Plt Count (160-400) X10*3/uL MPV (9.4-12.3) fL Immature Gran % (Auto) (0.0-0.4) % Neut % (Auto) (45-73) % Lymph % (Auto) (20-40) % Holmes % (Auto) (2-11) % Eos % (Auto) (0-4) % Baso % (Auto) (0-2) % Lymph # (Auto) (1.2-4.9) X10*3/uL Holmes # (Auto) (0.1-1.2) X10*3/uL Eos # (Auto) (0.0-0.4) X10*3/uL Baso # (Auto) (0.0-0.2) X10*3/uL Abs Immat Gran (auto) (0.00-0.03) X10*3/uL Absolute Neuts (auto) (2.0-8.3) x10*3/uL Absolute Nucleated RBC (0.0-0.012) X10*3/uL Nucleated RBC % (auto) (0.0-0.2) /100WBC Sodium (135-145) mmol/L Potassium (3.3-5.1) mmol/L Chloride (96-108) mmol/L Carbon Dioxide (22-29) mmol/L Anion Gap (12-20) BUN (9-16) mg/dL Creatinine (0.5-1.4) mg/dL Estim Creat Clear Calc Estimated GFR Random Glucose (60-115) mg/dL Calcium (8.4-10.2) mg/dL Beta HCG, Quant mIU/mL COVID-19 ([facility]US[facility]OO) (Negative) COVID-19 Clin Com Influenza Type A (NONA) Negative (Negative) Influenza Type B (NONA) Negative (Negative) Influenza A & B Note See Note <Caroline Amador, [employer]LO[employer] - Last Filed: 04/03/22 11:35> Lab Results 04/03/22 04/03/22 04/03/22 Range/Units 12:25 12:25 12:25 WBC 6.3 (4.8-10.8) X10*3/uL RBC 5.11 (4.20-5.50) X10*6/uL Hgb 14.5 (12.0-16.0) g/dl Hct 44.8 (37.0-47.0) % MCV 87.7 (80.0-98.0) fL MCH 28.4 (27.0-33.0) pg MCHC 32.4 (31.0-35.0) g/dl RDW 13.7 (11.0-16.0) % Plt Count 206 (160-400) X10*3/uL MPV 9.7 (9.4-12.3) fL Immature Gran % (Auto) 0.2 (0.0-0.4) % Neut % (Auto) 64.7 (45-73) % Lymph % (Auto) 26.7 (20-40) % Holmes % (Auto) 6.6 (2-11) % Eos % (Auto) 1.3 (0-4) % Baso % (Auto) 0.5 (0-2) % Lymph # (Auto) 1.7 (1.2-4.9) X10*3/uL Holmes # (Auto) 0.4 (0.1-1.2) X10*3/uL Eos # (Auto) 0.1 (0.0-0.4) X10*3/uL Baso # (Auto) 0.0 (0.0-0.2) X10*3/uL Abs Immat Gran (auto) 0.01 (0.00-0.03) X10*3/uL Absolute Neuts (auto) 4.1 (2.0-8.3) x10*3/uL Absolute Nucleated RBC 0.000 (0.0-0.012) X10*3/uL Nucleated RBC % (auto) 0.0 (0.0-0.2) /100WBC Sodium 141 (135-145) mmol/L Potassium 4.2 (3.3-5.1) mmol/L Chloride 106 (96-108) mmol/L Carbon Dioxide 26 (22-29) mmol/L Anion Gap 13 (12-20) BUN 12 (9-16) mg/dL Creatinine 0.71 (0.5-1.4) mg/dL Estim Creat Clear Calc 131.3 Estimated GFR > 60 Random Glucose 93 (60-115) mg/dL Calcium 9.1 (8.4-10.2) mg/dL Beta HCG, Quant < 2 mIU/mL COVID-19 ([facility]USHBOO) Negative (Negative) COVID-19 Clin Com See Note Influenza Type A (NONA) (Negative) Influenza Type B (NONA) (Negative) Influenza A & B Note 04/03/22 Range/Units 12:25 WBC (4.8-10.8) X10*3/uL RBC (4.20-5.50) X10*6/uL Hgb (12.0-16.0) g/dl Hct (37.0-47.0) % MCV (80.0-98.0) fL MCH (27.0-33.0) pg MCHC (31.0-35.0) g/dl RDW (11.0-16.0) % Plt Count (160-400) X10*3/uL MPV (9.4-12.3) fL Immature Gran % (Auto) (0.0-0.4) % Neut % (Auto) (45-73) % Lymph % (Auto) (20-40) % Holmes % (Auto) (2-11) % Eos % (Auto) (0-4) % Baso % (Auto) (0-2) % Lymph # (Auto) (1.2-4.9) X10*3/uL Holmes # (Auto) (0.1-1.2) X10*3/uL Eos # (Auto) (0.0-0.4) X10*3/uL Baso # (Auto) (0.0-0.2) X10*3/uL Abs Immat Gran (auto) (0.00-0.03) X10*3/uL Absolute Neuts (auto) (2.0-8.3) x10*3/uL Absolute Nucleated RBC (0.0-0.012) X10*3/uL Nucleated RBC % (auto) (0.0-0.2) /100WBC Sodium (135-145) mmol/L Potassium (3.3-5.1) mmol/L Chloride (96-108) mmol/L Carbon Dioxide (22-29) mmol/L Anion Gap (12-20) BUN (9-16) mg/dL Creatinine (0.5-1.4) mg/dL Estim Creat Clear Calc Estimated GFR Random Glucose (60-115) mg/dL Calcium (8.4-10.2) mg/dL Beta HCG, Quant mIU/mL COVID-19 ([facility]USHBOO) (Negative) COVID-19 Clin Com Influenza Type A (NONA) Negative (Negative) Influenza Type B (NONA) Negative (Negative) Influenza A & B Note See Note <Carlyn Ernst CNP - Last Filed: 04/03/22 17:04> External Record Review External record reviewed: Outpatient record <Carlyn Ernst CNP - Last Filed: 04/03/22 17:04> Discharge Plan Discharge Clinical Impression: Hot flashes <Caroline Amador NP - Last Filed: 04/03/22 11:35> Patient Disposition: Home, Self-Care <Caroline Amador NP - Last Filed: 04/03/22 11:35> Additional Instructions: Your blood work today was normal. Testing for COVID-19 and flu were both negative. As we discussed, there is some fluid buildup behind your ears, and the inside of your nose appears reddened, it is possible that these symptoms may be in relation to an allergic type event. We discussed short-term usage of an antihistamine/allergy medication. Please contact your primary care provider's office on Tuesday and arrange for further follow-up. You may return back to emergency department any new or worsening symptoms or concerns <Caroline Amador NP - Last Filed: 04/03/22 11:35> Prescriptions: New cetirizine [Zyrtec] 10 mg tablet 10 mg PO DAILY Qty: 10 0RF No Action vitamin A 10,000 unit capsule 20,000 unit PO DAILY 60 Days Qty: 120 0RF ibuprofen 600 mg tablet 600 mg PO Q8H PRN (Reason: fever or pain) Qty: 30 0RF acetaminophen [Tylenol] 325 mg tablet 650 mg PO Q4H PRN (Reason: fever or pain) Qty: 30 0RF Vitamin D PO <Caroline Amador NP - Last Filed: 04/03/22 11:35> Referrals: Nallely Denny MD [Primary Care Provider] - <Caroline Amador NP - Last Filed: 04/03/22 11:35> Stand Alone Forms: Work/School Release <Caroline Amador NP - Last Filed: 04/03/22 11:35> Interventions: ED Discharge Assessment Last Done: 04/03/22 15:22 <Caroline Amador NP - Last Filed: 02/18/23 11:35> Discharge Date/Time: 04/03/22 15:23 <Caroline Amador NP - Last Filed: 04/03/22 11:35>
[2022-04-03 11:33] VITALS: BP 134/73; PULSE 74; RESP 18; TEMP 36.6; O2SAT 99; BMI 37.5
[2022-04-03 12:32] LABS: MANUAL DIFF FLAG NO
[2022-04-03 12:38] LABS: Basophils Percent Auto 0.5 % (0-2); Eosinophils Absolute Auto 0.1 X10*3/uL (0.0-0.4); Eosinophils Percent Auto 1.3 % (0-4); Hematocrit 44.8 % (37.0-47.0); Hemoglobin 14.5 g/dl (12.0-16.0); Imm Gran Abs Auto 0.01 X10*3/uL (0.00-0.03); Imm Gran Pct Auto 0.2 % (0.0-0.4); Lymphocytes Absolute Auto 1.7 X10*3/uL (1.2-4.9); Lymphocytes Percent Auto 26.7 % (20-40); Mean Corpuscular HGB Conc 32.4 g/dl (31.0-35.0); Mean Corpuscular Hemoglobin 28.4 pg (27.0-33.0); Mean Corpuscular Volume 87.7 fL (80.0-98.0); Mean Platelet Volume 9.7 fL (9.4-12.3); Monocytes Absolute Auto 0.4 X10*3/uL (0.1-1.2); Monocytes Percent Auto 6.6 % (2-11); Neutrophils Absolute Auto 4.1 x10*3/uL (2.0-8.3); Neutrophils Percent Auto 64.7 % (45-73); Platelet Count 206 X10*3/uL (160-400); Red Blood Count 5.11 X10*6/uL (4.20-5.50); Red Cell Distribution Width 13.7 % (11.0-16.0); White Blood Count 6.3 X10*3/uL (4.8-10.8)
[2022-04-03 12:55] LABS: COVID-19 Test Negative (Negative); IDNOW Serial# 9DB6401D; IDNOW Serial# BCCEAD1C; Influenza A Negative (Negative); Influenza B2 Negative (Negative)
[2022-04-03 12:58] LABS: Anion Gap 13 (12-20); Blood Urea Nitrogen 12 mg/dL (9-16); Calcium 9.1 mg/dL (8.4-10.2); Carbon Dioxide 26 mmol/L (22-29); Chloride 106 mmol/L (96-108); Creatinine Clr Calc Pharmacy 131.3; Estimated Glomerular Filt Rate > 60; Glucose Random 93 mg/dL (60-115); Potassium 4.2 mmol/L (3.3-5.1); Sodium 141 mmol/L (135-145)
[2022-04-03 13:03] LABS: HCG Quantitative < 2 mIU/mL
== END 2022-04-03 15:23 | disposition home or self-care (01) ==
PROVIDERS: Nurse Practitioner Family; Emergency Provider Emergency Medicine; PCP Internal Medicine
DX: R68.89 Other general symptoms and signs (principal); N95.1 Menopausal and female climacteric states; H66.93 Otitis media, unspecified, bilateral; Z20.822 Contact with and (suspected) exposure to COVID-19; E66.9 Obesity, unspecified; Z68.37 Body mass index [BMI] 37.0-37.9, adult
CPT/HCPCS: 80048; 84702; 85025; 87502; 87635; 99283; 99284

== ENCOUNTER → 2022-07-28 09:29 | Outpatient (BNVA) | payer MEDICAID, SELFPAY | PROVIDERS: PCP Internal Medicine; Visit Provider Physician Assistant ==

== ENCOUNTER 2022-08-09 05:14 | Emergency (ER) | payer MEDICAID, SELFPAY ==
--- NOTE | ~2022-08-09 | XR_ITS ---
EXAMINATION: XR CHEST CLINICAL INFORMATION: Cough COMPARISON: None available. TECHNIQUE: 2 views of the chest were obtained. FINDINGS: No significant abnormality is noted involving the heart, lungs, mediastinum, bony thorax or soft tissues. XR/XR chest 2V IMPRESSION: Unremarkable chest examination.
[2022-08-09 05:19] VITALS: BP 117/69; PULSE 87; RESP 16; TEMP 36.8; O2SAT 97; BMI 36.6
[2022-08-09 05:49] LABS: IDNOW Serial# 08D9AD1C; Strep A Nucleic Acid Negative (Negative)
[2022-08-09 05:54] LABS: COVID-19 Test Negative (Negative); IDNOW Serial# 6674DD1D
[2022-08-09 06:26] VITALS: BP 128/80; BP 130/71; PULSE 77; PULSE 79; RESP 16; TEMP 36.9; O2SAT 96; O2SAT 98
--- NOTE | 2022-08-09 06:31 | PC.NURSE ---
patient came into the ER with complaints of dry cough patient vitals are stable at this time patient is waiting to be seen by the doctor at this time safety will be maintained until discharged
--- NOTE | 2022-08-09 07:03 | ED.URI ---
HPI - URI/Sore Throat General Chief Complaint: Upper Respiratory Symptoms Stated Complaint: sore throat, cough Time Seen by Provider: 08/09/22 06:59 Source: patient Mode of arrival: ambulatory Limitations: no limitations History of Present Illness HPI Narrative: Sore throat for 4 days then developed rhinorrhea and cough. Now with hoarse throat and shortness of breath MD elicited complaint: cough, sore throat and rhinorrhea Related Data Previous Rx's Medication Instructions Recorded fluticasone propionate 50 1 spray intranasal BID #16 grams 08/09/22 mcg/actuation nasal spray,suspension (Flonase Allergy Relief) Allergies Allergy/AdvReac Type Severity Reaction Status Date / Time No Known Allergies Allergy Verified 08/09/22 05:19 [No Known Allergies*] Review of Systems Review of Systems: Yes all other systems are reviewed and are negative ENT: Reports sore throat Comments: cough Neurologic: Denies Sensory deficit (Neuro) [facility] Past Medical History Medical History Obesity (BMI 35.0-39.9 without comorbidity) Vitamin A deficiency Surgical History Hx of tubal ligation Family History Family History Mother Depression Father Back ache Brother No problems noted. Daughter No problems noted. Daughter No problems noted. Son No problems noted. Social History Social History Alcohol intake: never Patient Tobacco Use Status: Never used Tobacco Smoked in Last 30 Days: No Use of substances other than those prescribed or required for medical reasons: No Advance Directives: No Patient : No Physical Exam Vital Signs: Vital Signs: Last Vital Signs Temp 98.4 F 08/09/22 06:26 Pulse 77 08/09/22 06:26 Resp 16 08/09/22 06:26 BP 128/80 08/09/22 06:26 Pulse Ox 96 08/09/22 06:26 O2 Del Method Room Air 08/09/22 06:26 BMI result Body Mass Index 36.6 Const: Other: Well appearing not short of breath General: healthy appearing Nutritional Appearance: obese Orientation/consciousness: oriented to person and patient oriented x3 Limitations: no limitations HEENT: Head: Yes normal to inspection Ears: external ears normal General nose exam: Normal external nose present Mouth: Normal oral and palatal mucosa present and oropharynx normal Throat: Yes posterior oropharynx normal Eyes: General: appearance normal, both eyes and all related structures Neck: Other: supple Neck: Yes normal visual inspection Chest: Chest palpation & inspection: normal inspection of the chest Resp: Auscultation: clear to auscultation bilaterally Cardio: Jugular venous distension: no JVD Rate: regular rate Rhythm: regular rhythm Heart sounds: S1 normal heart sound present and S2 normal heart sound present GI: Inspection: Yes normal to inspection Palpation (GI): Soft to palpation, nontender and No hepatosplenomegaly present Auscultation: normal bowel sounds : General: Yes no CVA tenderness Back/Spine/Pelvis: Back: no CVA tenderness Skin: General skin exam: no rashes or lesions noted Neuro: General: oriented to person and patient oriented x3 Cranial nerves: Yes CN's II-XII intact bilaterally Motor exam (neuro): 5/5 motor strength present throughout Sensory Exam: No Sensory deficit (Neuro) Extrem: General: Yes normal to inspection Psych: Appearance: grossly normal Course Reevaluation(s) Reevaluation #1: Patient is well appearing has negative CXR, neg strep, neg COVID, will discharge on flonase for viral uri Time: 07:33 Medical Decision Making Differential Diagnosis Differential Diagnoses: The differential diagnosis associated with the presentation includes (COVID, Strep, Influenza, pneumonia were all considered) Lab Data MDM Lab Attestation statement: I reviewed the patient's lab results. (strep and covid negative) Labs: Lab Results 08/09/22 08/09/22 Range/Units 05:28 05:28 COVID-19 ([facility]USHBOO) Negative (Negative) COVID-19 Clin Com See Note S. pyogenes GrpA NONA Negative (Negative) Independent Interpretation I performed an independent interpretation of an: Plain X-Ray (CXR: no infiltrate) Radiology Impression Discussion of test interpretation with radiology: I have reviewed the radiologist's reading. Tests considered The following testing was considered but not selected: We considered obtaining CBC and lytes but patient with normal vital and appears well Discharge Plan Discharge Clinical Impression: Upper respiratory infection Patient Disposition: Home, Self-Care Instructions: Upper Respiratory Infection (ED) Prescriptions: New fluticasone propionate [Flonase Allergy Relief] 50 mcg/actuation spray,suspension 1 spray intranasal BID Qty: 16 0RF Rx Instructions: administer into each nostril Referrals: [facility] [Primary Care Provider] - 1 week
== END 2022-08-09 07:58 | disposition home or self-care (01) ==
PROVIDERS: Emergency Provider Emergency Medicine
DX: J06.9 Acute upper respiratory infection, unspecified (principal); J02.9 Acute pharyngitis, unspecified; Z20.822 Contact with and (suspected) exposure to COVID-19
CPT/HCPCS: 71046; 87635; 87651; 99283; 99285

== ENCOUNTER 2022-08-31 08:57 | Outpatient (AMB) | payer MEDICAID, SELFPAY ==
--- NOTE | 2022-08-31 09:01 | MHC.OFFVISWM ---
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 She was in the program 05/19/20-09/24/20 with a weight loss of 8 pounds from 197 to 189 pounds She stopped before due to complaints of headaches that were felt to be hormonal and caffeine in etiology. Her goal is to lose weight and achieve a healthy lifestyle as well as to improve, if not resolve, obesity related medical conditions, including possible sleep apnea. She reports first being concerned about her weight 3 years ago, highest weight to date was 219. Current weight is 219.8 with a BMI of 40.2. She has tried multiple methods of weight loss including previous SWL plans without permanent results. She lives with her 4 kids and partner. 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 She wakes at:?7 am, and goes to bed at?mn. Dinner is at 6 pm. Breakfast: pancakes or eggs w toast or oatmeal AM snack: fruit or cheeze its or goldfish Lunch: skip PM snack: skip Dinner: salad or wraps, salmon, pasta After dinner: skip Other snacks: sometimes sweets Liquids: 64 oz water, no soda, 12 oz apple juice daily Alcohol/marijuana/tobacco intake: none Exercise: walking, gym membership to [employer] GERD score: 6 CHRIS score: 0 ESS score: 15 QOL score: 80 [facility] Medical History Obesity (BMI 35.0-39.9 without comorbidity) Vitamin A deficiency Surgical History Hx of tubal ligation Family History Mother Depression Father Back ache Brother No problems noted. Daughter No problems noted. Daughter No problems noted. Son No problems noted. Social History Alcohol intake: never Patient Tobacco Use Status: Never used Tobacco Review of Systems Const All systems reviewed & are unremarkable except as noted in HPI and below Physical Exam Vital Signs: Last Vital Signs Temp 98.9 F 08/31/22 09:04 Pulse 89 08/31/22 09:04 BP 122/56 L 08/31/22 09:04 Pulse Ox 95 08/31/22 09:04 Oxygen Delivery Method Room Air 08/31/22 09:04 BMI result Body Mass Index 40.2 Const General: cooperative, healthy appearing and no acute distress Orientation/consciousness: patient oriented x3 HEENT Head: Yes normal to inspection Ears: hearing grossly normal bilaterally General nose exam: Normal external nose present Face and sinus: Yes normal facial exam Eyes General: appearance normal, both eyes and all related structures Resp Effort & Inspection: normal respiratory effort Auscultation: clear to auscultation bilaterally Cardio Rate: regular rate Rhythm: regular rhythm Heart sounds: S1 normal heart sound present and S2 normal heart sound present GI Inspection: Yes normal to inspection, No distended and Yes obesity Palpation (GI): Soft to palpation, nontender and no guarding Auscultation: normal bowel sounds Skin General skin exam: no rashes or lesions noted Neuro General: patient oriented x3 Extrem General: No edema Psych Appearance: grossly normal Mental Status: mental status grossly normal Speech and movement: Normal speech and movement present Affect: normal affect Attitude: cooperative Assessment & Plan Assessment & Plan (1) Obesity (BMI 35.0-39.9 without comorbidity): Code(s): E66.9 - Obesity, unspecified Plan: This is a?27 yo female who will start our SW program to prepare for bariatric surgery.? Blood work, h pylori , CXR, ECG, Abd US and UGI have been ordered. She is being scheduled for RD and BH initial consultations. She will start SWL classes and watch the first three videos before her next appointment. We will also order a home sleep study due to morbid obesity and complaints of snoring, daytime fatigue and ESS of 15. ? Adequate sleep of 7-8 hours per night discussed, awakening at 7 am and going to bed at midnight ? Purchase body composition analyzer scale (Kp catherine or Danita recommended) and check weight weekly. The best time to do this is first thing in the morning after going to the bathroom. 1. Nutritional counseling: Be sure to careful read the number of scoops per shake Start with 3 Orgain shakes ([employer], [employer], [employer]), (1 scoop in 8 oz low fat unsweetened almond milk each) First shake at 8am-10am Second shake at 12pm-2pm 1 protein bar (Zone Perfect bars at [employer], [employer], or [employer]) at 3pm-5pm. Dinner at 6pm (8 forks of protein and 8 forks of salad/vegetables). Meal to include lean meat (beef, fish, pork, turkey, chicken), cooked vegetables or a salad with olive oil and/or fruits (berries, pears, apples, kiwi). Avoid salt, breads, potatoes, rice, pasta, desserts. Another shake with 1 scoop in 8 oz unsweetened almond milk at 8pm-10pm. Try to drink 64 oz of water daily and avoid soda and juices. ?2. Each shake would be drunk slowly, like coffee in a period of 2 hours. ?3. Cut each bar in 4 pieces and eat each piece in 30 min ?to make each bar last 2 hours. ?4. I emphasized the importance of measuring accurately the food portion and measure it carefully when serving the food on the plate ?5. The meal portions include 8 full-size forks of meat and 8 full-size forks of salad. You always eat the meat portion but you can replace up to half of the forks of salad/vegetables with rice, potatoes or pasta, or a fruit ?if you like. The less you do it the better weight loss will be. ?6. One full-size fork is what can be scooped on the fork without falling aside and not what can be bit with the fork. Use regular forks like those you find in a typical restaurant. ?7.? Please send me weight measurements as soon as possible and then once a week. Always include your diet and exercise plan. Alternatively come weekly at the office for weight checks and send me the measurements. ?8. Exercise counseling: Begin by watching a stretching for beginners video. Start slowly and begin to stretch your muscles. You should do this before and after each exercise session to prevent injury. Please go to [employer] gym near your home on your days off. Ask the tooling manager or one of the trainers how to use the machines if you are unfamiliar with them. Start elliptical with a resistance of 2. Increase resistance by 1 every 3 min to your most comfortable resistance with a max resistance of 8. Reduce the resistance by 1 every 3 minutes back down to 2 and repeat cycles for 300 calories. Alternatively, start treadmill with a speed of 3.0 and incline of 0, increasing incline by 1 every 3 minutes to the highest comfortable level (max 6 for now) then decrease in the same fashion. Repeat process to a goal of 300 calories. Goal of 2000 calories burned or more weekly. You may also consider use of the stationary bike. The easiest would be to chose the fat-burn or interval training program on the machine and do this until you reach the 300 calorie goal. Alternatively, you can manually adjust the resistance in a similar fashion as mentioned above, (resistance of 2-8 with a goal speed of 12 mph). Tracking calories is essential. 9. Alternatively start walking outside daily, tracking calories with a goal of 300 calories per day, daily. You can download the [email or web address] [email or web address] which can track your time, distance and calories while walking outside. You press start in the jayson when you start and then stop when you are finished. 10.? It is important to avoid and for at least 18 months postoperatively and it has been discussed at the information session 11. Please get labs, EKG and chest X-Ray within 1 week. 12. Discussed and answered all questions regarding?obtained consent to participate in the [facility]?Registry. 13. Please follow the diet plan exactly, without any change. If you do not like something about the plan or you feel hungry, you need to communicate with me so I can help you revise the plan. You should not change the plan yourself. Text me at [phone] 14. Goal is to lose at least 12 pounds in the first month 15. Goal is to lose 10% of your weight before surgery, which is about 22 lbs. Ultimate weight goal: 197 lbs before surgery Patient is morbidly obese and is not considered stable at this time.?I spent a total of 70 minutes reviewing/updating records, examining the patient and counseling the patient on weight management as detailed above. (2) Snoring: Code(s): R06.83 - Snoring Plan: check home sleep study Orders: Orders RT home sleep study Today E66.9 - Obesity, unspecified, R06.83 - Snoring Vitamin B12 and Folate Today E66.9 - Obesity, unspecified, R06.83 - Snoring Comprehensive Met. Panel Today E66.9 - Obesity, unspecified, R06.83 - Snoring C Reactive Protein Today E66.9 - Obesity, unspecified, R06.83 - Snoring Ferritin Today E66.9 - Obesity, unspecified, R06.83 - Snoring Hemoglobin A1c Today E66.9 - Obesity, unspecified, R06.83 - Snoring Insulin Today E66.9 - Obesity, unspecified, R06.83 - Snoring IRON PROFILE Today E66.9 - Obesity, unspecified, R06.83 - Snoring Lipid Panel Today E66.9 - Obesity, unspecified, R06.83 - Snoring PTHI Today E66.9 - Obesity, unspecified, R06.83 - Snoring TSH reflex Free T4 Today E66.9 - Obesity, unspecified, R06.83 - Snoring Vitamin A Today E66.9 - Obesity, unspecified, R06.83 - Snoring Vitamin B1 Today E66.9 - Obesity, unspecified, R06.83 - Snoring Vitamin D 25-OH Total Today E66.9 - Obesity, unspecified, R06.83 - Snoring Zinc Today E66.9 - Obesity, unspecified, R06.83 - Snoring ECG 12 lead EKG Today E66.9 - Obesity, unspecified, R06.83 - Snoring FL upper GI w air Today E66.9 - Obesity, unspecified, R06.83 - Snoring Complete Blood Count Auto Diff Today E66.9 - Obesity, unspecified, R06.83 - Snoring H Pylori Breath Test Today E66.9 - Obesity, unspecified, R06.83 - Snoring US abdomen comp w elastography Today E66.9 - Obesity, unspecified, R06.83 - Snoring XR chest 2V Today E66.9 - Obesity, unspecified, R06.83 - Snoring Referrals Behavioral Health Referral E66.9 - Obesity, unspecified, R06.83 - Snoring Nutrition/Dietitian Referral E66.9 - Obesity, unspecified, R06.83 - Snoring Coding Level of Care Code Est Pt Level 5 (97047) Diagnoses Obesity (BMI 35.0-39.9 without comorbidity) E66.9 Snoring R06.83 Time Spent (min) 70
[2022-08-31 09:04] VITALS: BP 122/56; PULSE 89; TEMP 37.2; O2SAT 95; BMI 40.2
== END 2022-08-31 09:53 | disposition home or self-care (01) ==
PROVIDERS: PCP Internal Medicine; Visit Provider Physician Assistant Surgical
DX: E66.9 Obesity, unspecified (principal); Z68.41 Body mass index [BMI] 40.0-44.9, adult; R06.83 Snoring
CPT/HCPCS: 99215

== ENCOUNTER 2022-08-31 08:57 | Outpatient (REF) | payer MEDICAID, SELFPAY ==
[2022-09-01 16:19] LABS: H Pylori Breath Test Negative (Negative)
== END 2022-08-31 08:58 | disposition home or self-care (01) ==
LOC: HO.LNP 08:57
PROVIDERS: PCP Internal Medicine; Visit Provider Physician Assistant Surgical
DX: E66.9 Obesity, unspecified (principal); R06.83 Snoring; Z71.3 Dietary counseling and surveillance; Z68.41 Body mass index [BMI] 40.0-44.9, adult; Z11.0 Encounter for screening for intestinal infectious diseases
CPT/HCPCS: 83013; 99211; 99215

== ENCOUNTER 2022-09-06 06:40 | Outpatient (REF) | payer MEDICAID, SELFPAY ==
--- NOTE | ~2022-09-06 | XR_ITS ---
EXAMINATION: XR CHEST CLINICAL INFORMATION: Reason for Exam E66.9 - Obesity, unspecified COMPARISON: Chest radiograph 08/05/2022 TECHNIQUE: 2 views of the chest FINDINGS: Lines and tubes: None. Clear lungs. No pleural effusion. No pneumothorax. Normal cardiomediastinal silhouette. XR/XR chest 2V IMPRESSION: * Clear lungs.
--- NOTE | 2022-09-06 06:49 | ECG_ITS ---
Test Reason : E66.9 Blood Pressure : / mmHG Vent. Rate : 045 BPM Atrial Rate : 045 BPM P-R Int : 176 ms QRS Dur : 090 ms QT Int : 456 ms P-R-T Axes : 016 079 039 degrees QTc Int : 394 ms Sinus bradycardia with sinus arrhythmia Otherwise normal ECG When compared with ECG of 11-JUL-2019 13:19, No significant change was found Referred By: Rodger Prince Electronically Signed By:NEETA LEIGH MD
[2022-09-06 07:18] LABS: MANUAL DIFF FLAG NO
[2022-09-06 07:22] LABS: Basophils Percent Auto 0.3 % (0-2); Eosinophils Absolute Auto 0.1 X10*3/uL (0.0-0.4); Eosinophils Percent Auto 1.4 % (0-4); Hematocrit 39.7 % (37.0-47.0); Hemoglobin 13.5 g/dl (12.0-16.0); Imm Gran Abs Auto 0.01 X10*3/uL (0.00-0.03); Imm Gran Pct Auto 0.2 % (0.0-0.4); Lymphocytes Absolute Auto 2.1 X10*3/uL (1.2-4.9); Lymphocytes Percent Auto 37.1 % (20-40); Mean Corpuscular Hemoglobin 30.8 pg (27.0-33.0); Mean Corpuscular Volume 90.6 fL (80.0-98.0); Mean Platelet Volume 9.7 fL (9.4-12.3); Monocytes Absolute Auto 0.4 X10*3/uL (0.1-1.2); Monocytes Percent Auto 6.9 % (2-11); Neutrophils Absolute Auto 3.1 x10*3/uL (2.0-8.3); Neutrophils Percent Auto 54.1 % (45-73); Platelet Count 198 X10*3/uL (160-400); Red Blood Count 4.38 X10*6/uL (4.20-5.50); Red Cell Distribution Width 14.6 % (11.0-16.0); White Blood Count 5.8 X10*3/uL (4.8-10.8)
[2022-09-06 07:57] LABS: Estimated Average Glucose 94 mg/dL; Hemoglobin A1c % 4.9 %
[2022-09-06 08:07] LABS: Alanine Aminotransferase 15 U/L (0-31); Albumin Level 3.9 g/dL (3.5-5.0); Alkaline Phosphatase 89 U/L (39-117); Anion Gap 11 (12-20); Aspartate Amino Transferase 14 U/L (5-31); Bilirubin Total 0.5 mg/dL (0.0-1.0); Blood Urea Nitrogen 12 mg/dL (9-16); C Reactive Protein 0.39 mg/dL (< or = 0.50); Carbon Dioxide 25 mmol/L (22-29); Chloride 109 mmol/L (96-108); Cholesterol 125 mg/dL; Estimated Glomerular Filt Rate > 60; Glucose Random 101 mg/dL (60-115); HDL Cholesterol 34 mg/dL; Iron 54 mcg/dL (30-160); LDL Cholesterol Calculated 72 mg/dl; Percent Iron Saturation 20 % (15-50); Potassium 4.1 mmol/L (3.3-5.1); Sodium 141 mmol/L (135-145); Total Iron Binding Capacity 276 mcg/dL (228-428); Total Protein 7.3 g/dL (6.5-8.0); Triglycerides 96 mg/dL; Unsaturated Iron Binding 222 ug/dL
[2022-09-06 08:16] LABS: Ferritin 24 ng/mL (10-122); Insulin 16 uU/mL (2-29); TSH reflex Free T4 1.43 uIU/mL (0.32-4.0); Vitamin D 25-OH Total 20.5 ng/mL (>30)
[2022-09-06 08:35] LABS: Folate 13.5 ng/mL (> or = 4.0); Vitamin B12 467 pg/mL (200-900)
[2022-09-08 18:58] LABS: Calcium (PTHI) 8.9 mg/dL (8.6-10.2); PTHI 83 pg/mL (16-77)
[2022-09-09 13:02] LABS: Zinc 65 mcg/dL (60-130)
[2022-09-10 03:43] LABS: Vitamin A 31 mcg/dL (38-98)
[2022-09-13 12:14] LABS: Vitamin B1 12 nmol/L (8-30)
== END 2022-09-06 06:41 | disposition home or self-care (01) ==
LOC: HO.XRAY 06:40
PROVIDERS: PCP Internal Medicine; Visit Provider Physician Assistant Surgical
DX: E66.9 Obesity, unspecified (principal); R06.83 Snoring
CPT/HCPCS: 36415; 71046; 80053; 80061; 82306; 82607; 82728; 82746; 83036; 83525; 83540; 83970; 84425; 84443; 84590; 84630; 85025; 86140; 93005

== ENCOUNTER → 2022-09-06 06:49 | Outpatient (BNV) | payer MEDICAID, SELFPAY | PROVIDERS: PCP Internal Medicine; Visit Provider Internal Medicine Cardiovascular Disease | DX: E66.9 Obesity, unspecified (principal) | CPT/HCPCS: 93010 ==

== ENCOUNTER 2022-09-08 14:07 | Outpatient (AMB) | payer MEDICAID, SELFPAY ==
--- NOTE | 2022-09-08 14:21 | MHC.WMTHER ---
Intake Intake Visit Reasons: (OV) BH Intake Allergies No Known Allergies [No Known Allergies*] Allergy (Verified 08/31/22 09:58) PFS Medical History Obesity (BMI 35.0-39.9 without comorbidity) Vitamin A deficiency Surgical History Hx of tubal ligation Family History Mother Depression Father Back ache Brother No problems noted. Daughter No problems noted. Daughter No problems noted. Son No problems noted. Social History Alcohol intake: never Patient Tobacco Use Status: Never used Tobacco Behavioral Health Assessment Weight Management Therapy Therapy Notes Details Pt is looking to have weight loss surgery to help improve her health and quality of life. She reports being tired all day, low energy. Pt is not in therapy, has never been and denied any mental health history. No history of problems with drugs or alcohol, denied any disordered eating in the past. Pt has no legal issues. Presenting Concerns Referral Source provider Reason for referral weight loss surgery Precipitating Event obesity Living Situation Current Living Situation Rent At risk of losing current housing? No Satisfied with current living situation? Yes Comments Pt lives with her 3 children, one step son and her fiance. Ages 11, 10, 8, and 4 years old. Food/Weight/Diet Expectations of change weight loss and maintenance History/Relationship with food Pt stated that she would skip meals all day, have a snack, and then eat dinner. She would eat typical diet and would snack mostly. History/Relationship with weight After giving to her 3th child 4 years ago, she started to struggle with her weight, highest being 218lbs. History/Relationship with dieting WMP program twice before she reported. Binge Eating Do you frequently eat large amounts of food in short periods of time, not feeling physically hungry? No Do you feel out of control when you eat a large amount of food in a short period of time? No Do you eat large amounts of food rapidly and typically alone? Yes Night Eating Do you wake up at least once during the night to eat? No If you wake up in the night, do you find that it is necessary to eat something in order to fall back asleep? No Do you have little or no appetite in the morning and feel very hungry in the evening, often overeating between dinner and when you go to bed? Yes Social History Family history and relationship Pt has been with her july? for 7 years and is the father of her 4 year old. 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 Cultural/Ethnic information Legal Involvement and History Current or historical involvement with the legal system? no issues known Education Highest grade completed GED Preferred learning style Auditory, Verbal, Written, Learn by doing and Visual Currently enrolled in educational program? No Interested in further educational program? 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 Employment Employment Status [employer] Wants help to find employment? No Meaningful activities going to the park with ids, bike riding, hiking Financial Situation Describe current financial situation Occasional struggle Financial assistance? None Service Service? No Mental Health and Addiction Treatment Current/Past substance abuse? No Current/Past addictive behavior concerns? No Medical and Physical Health Summary Physical exam in the last year? Yes Pain Screening Current pain? No Pain in the last few months? No Medications Is the patient compliant with medications? Yes Does the patient have Lewis Guardian in place? Not applicable Does the patient use complimentary health approaches? No Trauma/Abuse History History of trauma? No Questionnaires PHQ-9 Over the last 2 weeks, how often have you been bothered by any of the following problems? 1. Little interest or pleasure in doing things: several days 2. Feeling down, depressed, or hopeless: several days 3. Trouble falling or staying asleep, or sleeping too much: more than half the days 4. Feeling tired or having little energy: more than half the days 5. Poor appetite or overeating: more than half the days 6. Feeling bad about yourself - or that you are a failure or have let yourself or your family down: several days 7. Trouble concentrating on things, such as reading the newspaper or watching television: not at all 8. Moving or speaking so slowly that other people could have noticed. Or the opposite - being so fidgety or restless that you have been moving around a lot more than usual: not at all 9. Thoughts that you would be better off or of hurting yourself in some way: not at all Total score: 9 Source: Developed by Drs. Julio Patton, Lily Bermudez, Dani Roth and colleagues, with an educational skyler from [employer]. Binge Eating Scale Group 1 A. I don't feel self-conscious about my wt. or body size when I'm with others. B. I feel concerned about how I look to others, but it normally does not make me fell disappointed with myself C. I do get self-conscious about my appearance and wt. which makes me feel disappointed in myself. D. I feel very self-conscious about my wt. and frequently I feel intense shame and disgust for myself. I try to avoid social contacts because of my self-consciousness. Response Group 1: C Group 2 A. I don't have any difficulty eating slowly in the proper manner. B. Although I seem to gobble down foods, I don't end up feeling stuffed because of eating to much. C. At times, I tend to eat quickly and then, I feel uncomfortably full afterwards. D. I have the habit of bolting down my food, without really chewing it. When this happens I usually feel uncomfortably stuffed because I've eaten to much. Response Group 2: C Group 3 A. I feel capable to control my eating urges when I want to. B. I feel like I have failed to control my eating more than the average person. C. I feel utterly helpless when it comes to feeling in control of my eating urges. D. Because I feel so helpless about controlling my eating I have become very desperate about trying to get control. Response Group 3: B Group 4 A. I don't have the habit of eating when I'm bored. B. I sometimes eat when I'm bored, but often I'm able to get busy and get my mind off food. C. I have a regular habit of eating when I'm bored, but occasionally, I can use some other activity to get my mind off eating. D. I have a strong habit of eating when I'm bored. Nothing seems to help me breath the habit. Response Group 4: B Group 5 A. I'm usually physically hungry when I eat something. B. Occasionally, I eat something on impulse even though I really am not hungry. C. I have the regular habit of eating foods, that I might not really enjoy, to satisfy a hungry feeling even though physically, I don't need the food. D. Although I'm not physically hungry, I get a hungry feeling in my mouth that only seems to be satisfied when I eat a food, like sandwich, that fills my mouth. Sometimes, when I eat the food to satisfy my mouth hunger, I then spit the food out so I won't gain weight. Response Group 5: A Group 6 A. I don't feel any guilt or self-hate after I overeat. B. After I overeat, occasionally I feel guilt or self-hate. C. Almost all the time I experience strong guilt or self-hate after I overeat. Response Group 6: C Group 7 A. I don't lose total control of my eating when dieting even after periods when I overeat. B. Sometimes when I eat a forbidden food on a diet, I feel like I blew it and eat even more. C. Frequently, I have the habit of saying to myself, I've blown it now, why not go all the way, when I overeat on a diet. When that happens I eat more. D. I have a regular habit of starting a strict diets for myself but I break the diets by going on an eating binge. My life seems to be either a feast or famine. Response Group 7: B Group 8 A. I rarely eat so much food that I feel uncomfortably stuffed afterwards. B. Usually about once a month, I each such a quantity of food, I end up feeling very stuffed. C. I have regular periods during the month when I eat large amounts of food, either at mealtime or at snacks. D. I eat so much food that I regularly feel quite uncomfortable after eating and sometimes a bit nauseous. Response Group 8: A Group 9 A. My level of calorie intake does not go up very high or go down very low on a regular basis. B. Sometimes after I overeat, I will try to reduce my caloric intake to almost nothing to compensate for the excess calories I've eaten. C. I have a regular habit of overeating during the night. It seems that my routine is not to be hungry in the morning but overeat in the evening. D. In my adult years, I have had week-long periods where I practically starve myself. This follows periods when I overeat. It seems I live a life of either feast or famine. Response Group 9: B Group 10 A. I usually am able to stop eating when I want to. I know when enough is enough. B. Every so often, I experience a compulsion to eat which I can't seem to control. C. Frequently, I experience strong urges to eat which I seem unable to control, but at other times I can control my eating urges. D. I feel incapable of controlling urges to eat. I have a fear of not being able to stop eating voluntarily. Response Group 10: B Group 11 A. I don't have any problem stopping eating when I feel full. B. I usually can stop eating when I feel full but occasionally overeat leaving me feeling uncomfortably stuffed. C. I have a problem stopping eating once I start and usually I feel uncomfortably stuffed after I eat a meal. D. Because I have a problem not being able to stop eating when I want, I sometimes have to induce vomiting to relieve my stuffed feeling. Response Group 11: A Group 12 A. I seem to eat just as much when I'm with others, Family social gatherings as when I'm by myself. B. Sometimes, when I'm with other persons, I don't eat as much as I want to eat because I'm self-conscious about my eating. C. Frequently, I eat only a small amount of food when others are present, because I'm very embarrassed about my eating. D. I feel so ashamed about overeating that I pick times to overeat when I know no one will see me. I feel like a closet eater. Response Group 12: A Group 13 A. I eat three meals a day with only an occasional between meal snack. B. I eat 3 meals a day, but I also normally snack between meals. C. When I am snacking heavily, I get in the habit of skipping regular meals. D. There are regular periods when I seem to be continually eating, with no planned meals. Response Group 13: D Group 14 A. I don't think much about trying to control unwanted eating urges. B. At least some of the time, I feel my thoughts are pre-occupied with trying to control my eating urges. C. I feel that frequently I spend much time thinking about how much I ate or about trying not to eat anymore. D. It seems to me that most of my waking hours are pre-occupied by thoughts about eating or not eating. I feel like I'm constantly struggling not to eat. Response Group 14: C Group 15 A. I don't think about food a great deal. B. I have strong craving for food but they last only for brief periods of time. C. I have days when I can't seem to think about anything else but food. D. Most of my days seem to be pre-occupied with thoughts about food. I feel like I live to eat. Response Group 15: B Group 16 A. I usually know whether or not I'm physically hungry. I take the right portion of food to satisfy me. B. Occasionally, I feel uncertain about knowing whether or not I'm physically hungry. A these times it's hard to know how much food I should take to satisfy me. C. Even though I might know how many calories I should eat, I don't have any idea what is a normal amount of food for me. Response Group 16: A Binge Eating Score: 17 Score less than 17 Minimal Risk Score between 18-26 Moderate Risk Score between 27-46 High Risk Assessment & Plan Assessment & Plan (1) Adjustment disorder, unspecified: Code(s): F43.20 - Adjustment disorder, unspecified (2) Obesity (BMI 35.0-39.9 without comorbidity): Code(s): E66.9 - Obesity, unspecified Plan Patient has no serious mental health issues or barriers. She is cleared for surgery when ready. Coding Level of Care Code Psy Diag Spencer (66175) Diagnoses Adjustment disorder, unspecified F43.20 Obesity (BMI 35.0-39.9 without comorbidity) E66.9 Time Spent (min) 45
== END 2022-09-08 14:51 | disposition home or self-care (01) ==
PROVIDERS: PCP Internal Medicine; Visit Provider Counselor Mental Health
DX: F43.20 Adjustment disorder, unspecified (principal); E66.9 Obesity, unspecified
CPT/HCPCS: 90791

== ENCOUNTER → 2022-09-08 14:07 | Outpatient (BNVA) | payer MEDICAID, SELFPAY | PROVIDERS: PCP Internal Medicine; Visit Provider Counselor Mental Health | DX: F43.20 Adjustment disorder, unspecified (principal); E66.9 Obesity, unspecified | CPT/HCPCS: 90791 ==

== ENCOUNTER 2022-09-21 14:25 | Outpatient (AMB) | payer MEDICAID, SELFPAY ==
--- NOTE | 2022-09-21 14:38 | A.OFFVIS_ITS ---
Intake VS Expanded 09/21/22 14:41 Height 5 ft 2 in Weight 211 lb 6.4 oz BMI 38.7 BP 135/65 Blood Pressure Location Rt brachial Blood Pressure Position Sitting Pulse 72 Pulse Source Pulse Oximeter Temp 97.7 F Temperature Source Temporal Artery Scan Pulse Oximetry 97 Oxygen Delivery Method Room Air Body Fat 89.2 Body Fat Percentage 42.3 Free Fat Mass 122.0 Muscle Mass 115.8 Visceral Mass 9.0 Water Mass 87.6 BMR 1,732 Intake Visit Reasons: (OV) F/U SWL Allergies No Known Allergies [No Known Allergies*] Allergy (Verified 09/21/22 14:40) HPI HPI Comments History of Present Illness Details The patient is a pleasant 27 year old female who returns to the clinic for pre-operative surgical weight loss management. They were last seen in the office on 08/31/22, recorded weight at that time was 219.8 pounds, with a BMI of 40.2. Today's weight is 2111.4 pounds and BMI is 38.7. There has been a weight loss of 8.4 pounds since initiating the surgical weight loss program on 08/31/22 with a total body weight loss of 3.82 %. Pre op work up completed as follows: SWL classes:? []/8 BH appts: cleared-09/08/22 ? ? RD appts: 10/01/22 Labs: 09/06/22-Low A, D H. pylori: 08/31/22-neg CXR: 09/06/22-nad EK09/06/22-sinus kimberly ABD U/S: 11/18/22 UGI: 11/18/22 The patient reports she feels good. Current meal plan includes: 3 Orgain shakes ([employer], [employer], [employer]), (1 scoop in 8 oz low fat unsweetened almond milk each) First shake at 8am-10am Second shake at 12pm-2pm 1 protein bar (Zone Perfect bars at [employer], [facility], or [employer]) at 3pm-5pm. Dinner at 6pm (8 forks of protein and 8 forks of salad/vegetables). Meal to include lean meat (beef, fish, pork, turkey, chicken), cooked vegetables or a salad with olive oil and/or fruits (berries, pears, apples, kiwi). Avoid salt, breads, potatoes, rice, pasta, desserts. Another shake with 1 scoop in 8 oz unsweetened almond milk at 8pm-10pm. Drinking 64-80 oz of water Current exercise plan includes: videos at home and bike rides at [employer]. [facility] Medical History Obesity (BMI 35.0-39.9 without comorbidity) Vitamin A deficiency Surgical History Hx of tubal ligation Family History Mother Depression Father Back ache Brother No problems noted. Daughter No problems noted. Daughter No problems noted. Son No problems noted. Social History Alcohol intake: never Patient Tobacco Use Status: Never used Tobacco Assessment & Plan Assessment & Plan (1) Obesity (BMI 35.0-39.9 without comorbidity): Code(s): E66.9 - Obesity, unspecified Plan: change meal plan to : 3 Orgain shakes ([employer], [employer], [facility]), (1.5 scoop in 8 oz low fat unsweetened almond milk in first shake and 1 scoop in second shake) First shake at 8am-10am Second shake at 12pm-2pm 1 protein bar (Zone Perfect bars at [employer], [facility], or [employer]) at 3pm-5pm. Dinner at 6pm (8 forks of protein and 8 forks of salad/vegetables). Not doing third shake Increase exercise rtc 1 month Coding Level of Care Code Est Pt Level 3 (95279) Diagnoses Obesity (BMI 35.0-39.9 without comorbidity) E66.9
[2022-09-21 14:41] VITALS: BP 135/65; PULSE 72; TEMP 36.5; O2SAT 97; BMI 38.7
== END 2022-09-21 15:04 | disposition home or self-care (01) ==
PROVIDERS: PCP Internal Medicine; Visit Provider Physician Assistant Surgical
DX: E66.9 Obesity, unspecified (principal)
CPT/HCPCS: 99213

== ENCOUNTER → 2022-09-21 14:25 | Outpatient (BNVA) | payer MEDICAID, SELFPAY | PROVIDERS: PCP Internal Medicine; Visit Provider Physician Assistant Surgical | DX: E66.9 Obesity, unspecified (principal); R06.83 Snoring; Z68.38 Body mass index [BMI] 38.0-38.9, adult | CPT/HCPCS: 99213 ==

== ENCOUNTER → 2022-10-01 09:46 | Outpatient (BNVA) | payer MEDICAID, SELFPAY | PROVIDERS: PCP Internal Medicine; Visit Provider Dietitian, Registered | DX: E66.9 Obesity, unspecified (principal) | CPT/HCPCS: 97802 ==

== ENCOUNTER → 2022-10-05 09:59 | Outpatient (REF) | payer MEDICAID, SELFPAY | LOC: HO.SL 09:59 | PROVIDERS: PCP Internal Medicine; Visit Provider Physician Assistant Surgical | DX: E66.9 Obesity, unspecified (principal); R06.83 Snoring | CPT/HCPCS: 95806 ==

== ENCOUNTER → 2022-10-05 10:10 | Outpatient (BNV) | payer MEDICAID, SELFPAY | PROVIDERS: PCP Internal Medicine; Visit Provider Internal Medicine | DX: R06.83 Snoring (principal) | CPT/HCPCS: 95806 ==

== ENCOUNTER 2022-11-15 10:31 | Outpatient (AMB) | payer MEDICAID, SELFPAY ==
--- NOTE | 2022-11-15 10:34 | A.OFFVIS_ITS ---
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 They were last seen in the office on 09/21/22, recorded weight at that time was 211.4 pounds, with a BMI of 38.7. Today's weight is 205 pounds and BMI is 37.5. There has been a weight loss of 14.8 pounds since initiating the surgical weight loss program on 08/31/22 with a total body weight loss of 6.7 %. Pre op work up completed as follows: SW classes:? []8 BH appts: cleared-09/08/22 ? ? RD appts: f/u 11/04/22 Labs: 09/06/22-Low A, D H. pylori: 08/31/22-neg CXR: 09/06/22-nad EK09/06/22-sinus kimberly ABD U/S: 11/18/22 UGI: 11/18/22 The patient reports she feels good. She had a difficult time this month as she was not losing as much weight as previously. She is now able to fit into jeans she was unable to previously wear. Changed meal plan to RTD pure protein. Current meal plan includes: 2 RTD pure protein shakes ([employer], [employer] , [facility]), First shake at 8am-10am Second shake at 3pm-4pm 1 protein bar (Zone Perfect bars at [employer], [employer], or [employer]) at 3pm-5pm. Dinner at 6pm (4 forks of protein and 4 forks of salad/vegetables) Drinking 64-80 oz of water Current exercise plan includes: bike or walking, videos at home, burning about 800 calories per week [facility] Medical History Vitamin A deficiency Obesity (BMI 35.0-39.9 without comorbidity) Surgical History Hx of tubal ligation Family History Mother Depression Father Back ache Brother No problems noted. Daughter No problems noted. Daughter No problems noted. Son No problems noted. Social History Alcohol intake: never Patient Tobacco Use Status: Never used Tobacco Review of Systems Const All systems reviewed & are unremarkable except as noted in HPI and below Physical Exam Vital Signs: Last Vital Signs Temp 98.2 F 11/15/22 10:39 Pulse 77 11/15/22 10:39 Pulse Ox 97 11/15/22 10:39 Oxygen Delivery Method Room Air 11/15/22 10:39 BMI result Body Mass Index 37.5 Const General: healthy appearing and no acute distress Resp Effort & Inspection: normal respiratory effort Auscultation: clear to auscultation bilaterally Cardio Rate: regular rate Rhythm: regular rhythm GI Auscultation: normal bowel sounds Extrem General: Yes normal to inspection Assessment & Plan Assessment & Plan (1) Obesity (BMI 35.0-39.9 without comorbidity): Code(s): E66.9 - Obesity, unspecified Plan: 2 pure protein shakes, 1/2 scoop each in 8 oz unsweetened almond milk First shake at 8am-10am Second shake at 3pm-4pm 1 protein bar (Zone Perfect bars at [employer], [facility], or [employer]) at 3pm-5pm., may substitute greenlandic yogurt if she wishes Dinner at 6pm (8 forks of protein and 8 forks of salad/vegetables) Increase exercise to goal of 2000 calories per week Reminded of upcoming appts rtc 3 weeks Coding Level of Care Code Est Pt Level 3 (72455) Diagnoses Obesity (BMI 35.0-39.9 without comorbidity) E66.9
[2022-11-15 10:39] VITALS: PULSE 77; TEMP 36.8; O2SAT 97; BMI 37.5
== END 2022-11-15 11:09 | disposition home or self-care (01) ==
PROVIDERS: PCP Internal Medicine; Visit Provider Physician Assistant Surgical
DX: E66.9 Obesity, unspecified (principal)
CPT/HCPCS: 99213

== ENCOUNTER → 2022-11-15 10:31 | Outpatient (BNVA) | payer MEDICAID, SELFPAY | PROVIDERS: PCP Internal Medicine; Visit Provider Physician Assistant Surgical | DX: E66.9 Obesity, unspecified (principal); Z68.37 Body mass index [BMI] 37.0-37.9, adult | CPT/HCPCS: 99212 ==

== ENCOUNTER 2022-11-18 08:27 | Outpatient (REF) | payer MEDICAID, SELFPAY | END 2022-11-18 08:28 | disposition home or self-care (01) | LOC: HO.US 08:27 | PROVIDERS: PCP Internal Medicine; Visit Provider Physician Assistant Surgical | DX: E66.9 Obesity, unspecified (principal); R06.83 Snoring | CPT/HCPCS: 74246; 76705; 76981 ==

== ENCOUNTER → 2022-11-18 09:01 | Outpatient (BNV) | payer MEDICAID, SELFPAY | PROVIDERS: PCP Internal Medicine; Visit Provider Radiology Diagnostic Radiology | DX: Z01.818 Encounter for other preprocedural examination (principal); E66.9 Obesity, unspecified | CPT/HCPCS: 74246 ==

== ENCOUNTER 2022-12-07 13:30 | Outpatient (AMB) | payer MEDICAID, SELFPAY ==
--- NOTE | 2022-12-07 13:31 | A.OFFVIS_ITS ---
Intake VS Expanded 12/07/22 13:35 BP 112/63 Blood Pressure Location Rt brachial Blood Pressure Position Sitting Pulse 68 Pulse Source Pulse Oximeter Temp 98.4 F Temperature Source Temporal Artery Scan Pulse Oximetry 97 Oxygen Delivery Method Room Air Height 5 ft 2 in Weight 203 lb 6.4 oz BMI 37.2 Body Fat % 42.3 Body Fat Mass 86.0 Fat Free Mass 117.2 Visceral Fat Rating 9.0 Body Water % 41.5 Body Water Mass 84.4 Muscle Mass/Score 111.4 Basal Metabolic Rate/Score 1,668 Intake Visit Reasons: (OV) F/U SWL Allergies No Known Allergies [No Known Allergies*] Allergy (Verified 12/07/22 13:34) Medication List - Last Reconciled 12/07/22 by RAFIQ Reynoso cholecalciferol (vitamin D3) 125 mcg PO DAILY 90 days vitamin A palmitate 3,000 mcg PO DAILY 90 days HPI HPI Comments History of Present Illness Details The patient is a pleasant 27 year old female who returns to the clinic for pre-operative surgical weight loss management. They were last seen in the office on 11/15/22, recorded weight at that time was 205 pounds, with a BMI of 37.5. Today's weight is 203.4 pounds and BMI is 37.2. There has been a weight loss of 16.4 pounds since initiating the surgical weight loss program on 08/31/22 with a total body weight loss of 7.4 %. Pre op work up completed as follows: SWL classes:? 09/21 BH appts: cleared-09/08/22 ? ? RD appts: f/u 12/10/22 Labs: 09/06/22-Low A, D H. pylori: 08/31/22-neg CXR: 09/06/22-nad EK09/06/22-sinus kimberly ABD U/S: 11/18/22-fatty liver UGI: 11/18/22-trace GERD The patient reports she feels good. She has not yet purchased a body composition scale and she has resumed the pure protein powder. She has been using the yogurt more than the bar but this was discussed and will now use bar exclusively. She has been doing 1 scoop per shake instead of 1/2 scoop. Current meal plan includes: 2 pure protein shakes, 1/2 scoop each i n 8 oz unsweetened almond milk First shake at 8am-10am Second shake at 3pm-4pm 1 protein bar (Zone Perfect bars at [employer], [facility], or [employer]) at 3pm-5pm., may substitute occitan yogurt if she wishes Dinner at 6pm (8 forks of protein and 8 forks of salad/vegetables) Drinking 80-96 oz water Current exercise plan includes: treadmill at home 30 min, speed 5-6, incline 0-3 PFSH Medical History Vitamin A deficiency Obesity (BMI 35.0-39.9 without comorbidity) Surgical History Hx of tubal ligation Family History Mother Depression Father Back ache Brother No problems noted. Daughter No problems noted. Daughter No problems noted. Son No problems noted. Social History Alcohol intake: never Patient Tobacco Use Status: Never used Tobacco Review of Systems Const All systems reviewed & are unremarkable except as noted in HPI and below Physical Exam Const General: healthy appearing and no acute distress Resp Effort & Inspection: normal respiratory effort Auscultation: clear to auscultation bilaterally Cardio Rate: regular rate Rhythm: regular rhythm GI Auscultation: normal bowel sounds Extrem General: Yes normal to inspection Assessment & Plan Assessment & Plan (1) Obesity (BMI 35.0-39.9 without comorbidity): Code(s): E66.9 - Obesity, unspecified Plan: I wrote down on a piece of paper and given to the patient instructions regarding her meal plan, specifically half scoop per shake. Instructed to by body composition scale as was in my original email. Instructed to communicate weekly her weight and if any problems Instructed to increase calories burned on her treadmill as she is not even been keeping track of this. Encouraged to burn 300 calories daily with speed of 3.5 and incline zeroth through 6. Reminded of upcoming appointment with dietitian. Return to clinic 3 weeks. Coding Level of Care Code Est Pt Level 4 (77589) Diagnoses Obesity (BMI 35.0-39.9 without comorbidity) E66.9 Time Spent (min) 40
[2022-12-07 13:35] VITALS: BP 112/63; PULSE 68; TEMP 36.9; O2SAT 97; BMI 37.2
== END 2022-12-07 14:05 | disposition home or self-care (01) ==
PROVIDERS: PCP Internal Medicine; Visit Provider Physician Assistant Surgical
DX: E66.9 Obesity, unspecified (principal); Z68.37 Body mass index [BMI] 37.0-37.9, adult
CPT/HCPCS: 99214

== ENCOUNTER → 2022-12-07 13:30 | Outpatient (BNVA) | payer MEDICAID, SELFPAY | PROVIDERS: PCP Internal Medicine; Visit Provider Physician Assistant Surgical | DX: E66.9 Obesity, unspecified (principal); Z68.37 Body mass index [BMI] 37.0-37.9, adult | CPT/HCPCS: 99212 ==

== ENCOUNTER → 2022-12-10 09:14 | Outpatient (BNVA) | payer MEDICAID, SELFPAY | PROVIDERS: PCP Internal Medicine; Visit Provider Dietitian, Registered | DX: E66.9 Obesity, unspecified (principal) | CPT/HCPCS: 97803 ==

== ENCOUNTER 2023-03-25 09:08 | Emergency (ER) | payer MEDICAID, SELFPAY ==
[2023-03-25 09:21] VITALS: BP 128/72; PULSE 70; RESP 18; TEMP 36.4; O2SAT 96; BMI 37.7
--- NOTE | 2023-03-25 09:33 | ED_ITS ---
HPI - General Adult General Chief complaint: Headache Stated complaint: L side headache Time Seen by Provider: 03/25/23 09:27 Source: patient Mode of arrival: ambulatory Limitations: no limitations History of Present Illness HPI narrative: Patient is a 27-year-old female with history of migraines, vitamin-D deficiency, obesity presenting to the emergency department with complaint of left-sided posterior headache for the past 4 days. Reports some nausea but denies vomiting or abdominal pain. Has taken ibuprofen with temporary relief. States headache typically worsens in the evening. Denies any blurred vision, double vision, or other vision changes. Reports headache was gradual onset, denies worst headache of life. Denies any weight loss, not worse with standing. States pain radiates to left lateral neck. Denies any fall or other trauma. Denies recent strenuous activity. MD complaint: headache Onset (ago): day(s) Location: head Radiation: neck Severity: moderate Quality: aching Pain Consistency: colicky Relieving factors: medication Exacerbating factors: none Associated symptoms: nausea/vomiting (reports nausea, denies vomiting) Treatments prior to arrival: NSAID Related Data Previous Rx's Medication Instructions Recorded cholecalciferol (vitamin D3) 125 125 mcg PO DAILY 90 days #90 caps 09/06/22 mcg (5,000 unit) capsule vitamin A palmitate 3,000 mcg 3,000 mcg PO DAILY 90 days #90 caps 03/03/23 (10,000 unit) capsule Allergies Allergy/AdvReac Type Severity Reaction Status Date / Time No Known Allergies Allergy Verified 03/25/23 09:23 [No Known Allergies*] Review of Systems Review of Systems: As per HPI. Yes all other systems are reviewed and are negative Constitutional: Constitutional: Reports as per HPI [facility] Past Medical History Medical History Vitamin A deficiency Obesity (BMI 35.0-39.9 without comorbidity) Surgical History Hx of tubal ligation Family History Family History Mother Depression Father Back ache Brother No problems noted. Daughter No problems noted. Daughter No problems noted. Son No problems noted. Social History Social History Alcohol intake: never Patient Tobacco Use Status: Never used Tobacco Advance Directives: No Advance Directives Information Provided: No Physical Exam ED Vital Signs: Vital Signs - 24 hr 03/25/23 09:21 Temperature 97.5 F Pulse Rate 70 Respiratory Rate 18 Blood Pressure 128/72 Pulse Oximetry 96 Oxygen Delivery Method Room Air BMI result Body Mass Index 37.7 Vital signs have been reviewed and appear to be correct. Blood pressure normal. Heart rate normal. Respiratory rate normal. Temperature normal. Oxygen saturation normal. Const General: cooperative, healthy appearing and no acute distress Orientation/consciousness: oriented to person, oriented to place, oriented to time and patient oriented x3 Limitations: no limitations HENMT Head: Yes normocephalic and Yes atraumatic Ears: external ears normal, TM's normal bilaterally and EAC's normal General nose exam: Normal external nose present Face and sinus: Yes face symmetric Mouth: oropharynx normal and moist mucous membranes Throat: Yes uvula midline Eyes Pupils: Equal, round and reactive pupils present EOM: EOMs intact bilaterally Neck Neck: Yes normal visual inspection, Yes full ROM, Yes no lymphadenopathy, Yes no meningeal signs, Yes trachea midline and Yes supple Thyroid: Thyroid normal Lymphatic: no lymphadenopathy noted Resp Effort & Inspection: normal respiratory effort and able to speak in complete sentences Auscultation: clear to auscultation bilaterally Cardio Rate: regular rate Rhythm: regular rhythm Heart sounds: S1 normal heart sound present and S2 normal heart sound present GI Palpation (GI): Soft to palpation and nontender Auscultation: normoactive bowel sounds General: Yes no CVA tenderness Back/Spine/Pelvis Back: no CVA tenderness Cervical Spine: normal cervical lordosis, cervical ROM normal, cervical muscular tenderness (left lateral), No Cervical spine tenderness and No step off deformity Skin General skin exam: elasticity normal and turgor normal Neuro General: oriented to person, oriented to place, oriented to time, patient oriented x3, gait normal, tone normal, moves all extremities, Normal light touch and pain sensation, no meningeal signs, no focal motor deficits, CN's II-XI intact bilaterally and deep tendon reflexes 2+ bilaterally Cranial nerves: Yes Equal, round and reactive pupils present Cognition (Neuro): normal cognition Motor exam (neuro): 5/5 motor strength present throughout, Pronator motor function not present, Normal motor muscle tone present throughout and Motor abnormalities not present Sensory Exam: Normal double simultaneous stimulation for sensation Extrem General: Yes full ROM, Yes no pedal edema and Yes no calf tenderness Psych Mental Status: mental status grossly normal Affect: normal affect Thought process: Normal thought process present Medications Administered Discontinued Medications Generic Name Dose Route Start Last Admin Trade Name Sofie PRN Reason Stop Dose Admin Diphenhydramine HCl 25 mg 03/25/23 10:07 03/25/23 11:15 Diphenhydramine Hcl 50 Mg/Ml Vial IVPUSH 03/25/23 10:08 25 mg ONCE ONE Administration Ketorolac Tromethamine 15 mg 03/25/23 10:07 03/25/23 11:15 Ketorolac Tromethamine 15 Mg/Ml Vial IVPUSH 03/25/23 10:08 15 mg ONCE ONE Administration Metoclopramide HCl 10 mg 03/25/23 10:07 03/25/23 11:15 Metoclopramide Hcl 10 Mg/2 Ml Vial IVPUSH 03/25/23 10:08 10 mg ONCE ONE Administration Medical Decision Making Medical Decision Making [facility] Narrative: Patient is a 27-year-old female with history of migraines, vitamin-D deficiency, obesity presenting to the emergency department with complaint of left-sided posterior headache for the past 4 days. On exam patient is awake, A+Ox3, VS WNL, afebrile, normal neurological exam without focal deficits, physical exam findings as above. Given reported symptoms and physical exam findings, initial differential includes migraine vs tension headache. Do not suspect pseudotumor, malignancy/mass, SAH/ICH, meningitis, encephalopathy. Urine negative. Headache treated in the ED with IV fluids, Toradol, Reglan, Benadryl. Patient reports full resolution of headache after medications. Instructed patient to follow-up with primary care provider. Advised patient alternate Tylenol and ibuprofen if headache returns. Return precautions discussed. Patient verbalized understanding of and agreement with plan. Differential Diagnosis Differential Diagnoses: The differential diagnosis associated with the presentation includes As per [facility] Lab Data [facility] Lab Attestation statement: I reviewed the patient's lab results. As per [facility]. Labs: Lab Results 03/25/23 Range/Units 09:49 Urine Test NEGATIVE (NEGATIVE) External Record Review External record reviewed: Inpatient record, Office record and Outpatient record Tests considered The following testing was considered but not selected: Considered CT head but based on physical exam and reported history, do not feel this test was indicated at this time. Discharge Plan Discharge Clinical Impression: Headache Patient Disposition: Home, Self-Care Instructions: General Headache (ED) Additional Instructions: You have been evaluated in the emergency department today for headache. Your evaluation did not show evidence of medical conditions requiring emergent intervention at this time, and your pain improved with medication in the ED. We recommend you take 600 mg ibuprofen every 6 hours or Tylenol 650 mg every 6 hours as needed for pain. If needed, you can alternate these medications so that you take 1 medication every 3 hours. For instance, at noon take ibuprofen, then at 3:00 p.m. take Tylenol, then at 6:00 p.m. take ibuprofen. Please follow-up with your primary care provider within 2 days. Return to the emergency department if you experience worsening or uncontrolled pain, vision changes, recurrent vomiting, difficulty with normal activities, abnormal behavior, difficulty walking, numbness, weakness, or any other concerning symptoms. Prescriptions: No Action cholecalciferol (vitamin D3) 125 mcg (5,000 unit) capsule 125 mcg PO DAILY 90 Days Qty: 90 1RF vitamin A palmitate 3,000 mcg (10,000 unit) capsule 3,000 mcg PO DAILY 90 Days Qty: 90 0RF Stand Alone Forms: Work/School Release
[2023-03-25 10:05] LABS: UPreg QC Valid YES; Urine Pregnancy NEGATIVE (NEGATIVE)
[2023-03-25] MEDS: diphenhydrAMINE HCL 50 MG/ML VIAL 25 MG IVPUSH (11:15)
[2023-03-25] MEDS: Metoclopramide HCl 10 MG/2 ML VIAL IVPUSH (11:15)
[2023-03-25] MEDS: Ketorolac Tromethamine 15 MG/ML VIAL IVPUSH (11:15)
--- NOTE | 2023-03-25 11:18 | PC.NURSE ---
20gIV placed in the right AC - medication administered per provider order. will reassess pain level shortly. respirations even and unlabored. plan of care ongoing.
--- NOTE | 2023-03-25 12:06 | PC.NURSE ---
pt verbalizing pain level decreased to 0/10 post medication administration. resting comfortably w/ the lights dimmed at this time.
== END 2023-03-25 13:09 | disposition home or self-care (01) ==
PROVIDERS: Registered Nurse Emergency; Emergency Provider Emergency Medicine; PCP Internal Medicine
DX: R51.9 Headache, unspecified (principal)
CPT/HCPCS: 81025; 96374; 96375; 99283; 99284; J1200; J1885; J2765

== ENCOUNTER 2023-04-03 13:10 | Emergency (ER) | payer MEDICAID, SELFPAY ==
[2023-04-03 14:13] VITALS: BP 129/75; PULSE 85; RESP 18; TEMP 36.4; O2SAT 98; BMI 36.3
--- NOTE | 2023-04-03 14:27 | ED_ITS ---
HPI - URI/Sore Throat General Chief Complaint: Upper Respiratory Symptoms Stated Complaint: Sore throat Time Seen by Provider: 04/03/23 14:03 Source: patient Mode of arrival: ambulatory Limitations: no limitations History of Present Illness HPI Narrative: 27 yo female healthy here with sore throat x 1 day. Last week her children had strep and influenza. No cough, fevers, chills, difficulty breathing, difficulty swallowing, chest pain, skin rash, headache, neck pain or neck stiffness. Related Data Previous Rx's Medication Instructions Recorded cholecalciferol (vitamin D3) 125 125 mcg PO DAILY 90 days #90 caps 09/06/22 mcg (5,000 unit) capsule vitamin A palmitate 3,000 mcg 3,000 mcg PO DAILY 90 days #90 caps 03/03/23 (10,000 unit) capsule Allergies Allergy/AdvReac Type Severity Reaction Status Date / Time No Known Allergies Allergy Verified 03/25/23 09:23 [No Known Allergies*] Review of Systems Review of Systems: Yes all other systems are reviewed and are negative Constitutional: Constitutional: Reports no additional constitutional complaints, Denies body ache(s), Denies chills, Denies fever(s), Denies headache(s) and Denies weakness Eyes: Eyes: Reports no additional eye complaints and Denies change in vision ENT: Reports system reviewed and no additional complaints, except as documented, Denies dizziness, Denies headache(s), Denies nasal congestion, Denies nasal discharge, Denies neck pain and Reports sore throat Cardiovascular: Cardiovascular: Reports no additional cardiovascular complaints, Denies chest pain, Denies leg edema and Denies dyspnea Respiratory: Respiratory: Reports no additional respiratory complaints, Denies cough and Denies dyspnea Gastrointestinal: Gastrointestinal: Reports no additional gastrointestinal complaints, Denies abdominal pain, Denies diarrhea, Denies nausea and Denies vomiting Genitourinary: Genitourinary: Reports no additional female genitourinary complaints and Denies urinary incontinence Musculoskeletal: Musculoskeletal: Reports no additional musculoskeletal complaints, Denies back pain, Denies arthralgias, Denies joint swelling, Denies neck pain, Denies numbness and Denies tingling Integumentary/Breasts: Skin/Breast: Reports system reviewed and no additional complaints, except as docu and Denies rash Neurologic: Reports system reviewed and no additional complaints, except as documented, Denies Abnormal speech present, Denies dizziness, Denies headache(s), Denies numbness, Denies tingling and Denies weakness PMF Past Medical History Attestation statement: The following information was validated with the patient. Source: old records reviewed and nursing notes reviewed Medical History Vitamin A deficiency Obesity (BMI 35.0-39.9 without comorbidity) Surgical History Hx of tubal ligation Family History Family History Mother Depression Father Back ache Brother No problems noted. Daughter No problems noted. Daughter No problems noted. Son No problems noted. Social History Social History Alcohol intake: never Patient Tobacco Use Status: Never used Tobacco Advance Directives: No Advance Directives Information Provided: Yes Physical Exam Vital Signs: Vital Signs: Last Vital Signs Temp 97.6 F 04/03/23 14:13 Pulse 85 04/03/23 14:13 Resp 18 04/03/23 14:13 BP 129/75 04/03/23 14:13 Pulse Ox 98 04/03/23 14:13 O2 Del Method Room Air 04/03/23 14:13 BMI result Body Mass Index 36.3 Const: General: cooperative, healthy appearing, comfortable and no acute distress Orientation/consciousness: patient oriented x3 Limitations: no limitations HEENT: Head: Yes normal to inspection Ears: hearing grossly normal bilaterally and TM's normal bilaterally General nose exam: Normal external nose present Face and sinus: Yes normal facial exam Mouth: Normal oral and palatal mucosa present Throat: Yes posterior oropharynx normal, Yes tonsils normal and Yes uvula midline Eyes: General: appearance normal, both eyes and all related structures Pupils: Equal, round and reactive pupils present Neck: Neck: Yes normal visual inspection, Yes full ROM, Yes no lymphadenopathy and Yes no meningeal signs Chest: Chest palpation & inspection: normal inspection of the chest Resp: Effort & Inspection: normal respiratory effort Auscultation: clear to auscultation bilaterally Cardio: Rate: regular rate Rhythm: regular rhythm Peripheral pulses: Peripheral pulses 2+ throughout GI: Inspection: Yes normal to inspection Palpation (GI): Soft to palpation and nontender Auscultation: normal bowel sounds Back/Spine/Pelvis: Thoracic/Lumbar Spine: thoracic and lumbar spine normal to inspection Skin: General skin exam: no rashes or lesions noted Neuro: General: patient oriented x3, no meningeal signs, no focal motor deficits and normal sensation to monofilament Cranial nerves: Yes Equal, round and reactive pupils present Cognition (Neuro): normal cognition Speech: No Abnormal speech present Gait exam (Neuro): Normal gait present Motor exam (neuro): 5/5 motor strength present throughout Extrem: General: Yes normal to inspection Course Course Course Narrative: flu screen is positive. No hypoxia or tachypnea requiring supplemental oxygen. Patient is well-appearing, nontoxic. Discussed Tamiflu with patient. Shared decision making at this time to hold treatment with Tamiflu and continue with treatment with supportive measures. Reviewed worrisome signs and symptoms of when to return to the emergency room. Comfortable plan for discharge home. Medical Decision Making Medical Decision Making [facility] Narrative: 27 yo female healthy here with sore throat x 1 day. Last week her children had strep and influenza. No cough, fevers, chills, difficulty breathing, difficulty swallowing, chest pain, skin rash, headache, neck pain or neck stiffness. Exam is benign. VSS Will send viral testing, strep screen Differential Diagnosis Differential Diagnoses: The differential diagnosis associated with the presentation includes influenza, viral syndrome. strep pharyngitis low concern for rpa, homicide squad captain, ludwigs angina, epiglottis Admission/Observation Consideration of admission/observation: Escalation of care including admission/observation considered flu screen is positive. No hypoxia or tachypnea requiring supplemental oxygen and or admission to the hospital Lab Data [facility] Lab Attestation statement: I reviewed the patient's lab results. Labs: Lab Results 04/03/23 Range/Units 14:29 Influenza Type A (PCR) POSITIVE A (Negative) Influenza Type B (PCR) NEGATIVE (Negative) RSV RNA Qual (PCR) NEGATIVE (Negative) SARS-CoV-2 RNA (RT-PCR) NEGATIVE (Negative) S. pyogenes GrpA NONA Negative (Negative) Independent Historian Clinical information obtained from an independent historian. History obtained from or confirmed by: Other ( son) Tests considered The following testing was considered but not selected: no hypoxia or tachypnea to suggest need for cxr Prescription Management I considered prescription management with: Antiviral Discharge Plan Discharge Clinical Impression: Influenza Patient Disposition: Home, Self-Care Instructions: Influenza (ED) Additional Instructions: Take Motrin or Tylenol for any pain or fever Increase fluids, rest Return for chest pain or shortness of breath We discussed treatment with Tamiflu and at this time we used shared decision making to hold treatment as we felt it may make her symptoms worse Prescriptions: No Action cholecalciferol (vitamin D3) 125 mcg (5,000 unit) capsule 125 mcg PO DAILY 90 Days Qty: 90 1RF vitamin A palmitate 3,000 mcg (10,000 unit) capsule 3,000 mcg PO DAILY 90 Days Qty: 90 0RF Referrals: Nallely Denny MD [Primary Care Provider] - 1 week Stand Alone Forms: Work/School Release
[2023-04-03 14:52] LABS: IDNOW Serial# 08D9AD1C; Strep A Nucleic Acid Negative (Negative)
[2023-04-03 15:13] LABS: Influenza A PCR POSITIVE (Negative); Influenza B PCR NEGATIVE (Negative); Resp Syncy Virus RNA Qual PCR NEGATIVE (Negative); SARS COV2 PCR INHOUSE NEGATIVE (Negative)
== END 2023-04-03 16:06 | disposition home or self-care (01) ==
PROVIDERS: Nurse Practitioner Family; Emergency Provider Emergency Medicine; PCP Internal Medicine
DX: J10.1 Influenza due to other identified influenza virus with other respiratory manifestations (principal); Z20.822 Contact with and (suspected) exposure to COVID-19; Z20.828 Contact with and (suspected) exposure to other viral communicable diseases
CPT/HCPCS: 0241U; 87651; 99282; 99283

== ENCOUNTER 2023-04-18 17:51 | Outpatient (REF) | payer MEDICAID, SELFPAY ==
[2023-04-20 09:59] LABS: C. trachomatis RNA TMA NOT DETECTED (NOT DETECTED); N. gonorrhoeae RNA TMA NOT DETECTED (NOT DETECTED)
[2023-04-22 05:58] LABS: HPV mRNA E6/E7 rflx Detected (Not Detected)
[2023-04-22 06:09] LABS: HPV 16 RNA NOT DETECTED (NOT DETECTED)
== END 2023-04-18 17:52 | disposition home or self-care (01) ==
LOC: HO.HHCLNP 17:51
PROVIDERS: Visit Provider Internal Medicine
DX: Z01.419 Encounter for gynecological examination (general) (routine) without abnormal findings (principal)
CPT/HCPCS: 36415; 81513; 87491; 87591; 87624; 87625; 88142

== ENCOUNTER 2023-06-13 10:15 | Outpatient (AMB) | payer MEDICAID, SELFPAY ==
--- NOTE | 2023-06-13 10:39 | MHC.OFFVIS ---
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 Daughter No problems noted. Daughter No problems noted. Son No problems noted. Social History Alcohol intake: never Patient Tobacco Use Status: Never used Tobacco Female Reproductive History Menstrual Date of last menstrual period: 05/27/23 control method: permanent sterilization Permanent Sterilization: BTL Total pregnancies: 3 Full term: 3 Number of Living Children: 3 Date of last pap smear: 04/18/23 (ascus +hpv) History of abnormal pap smear: Yes Review of Systems Const All systems reviewed & are unremarkable except as noted in HPI and below Physical Exam Vital Signs: Last Vital Signs BP 116/60 06/13/23 10:43 General: Yes no CVA tenderness External Female Exam: normal external appearance and normal appearance of the urethra Speculum Exam - Vagina: normal appearance of the vagina, normal palpation, no lesions and no masses Speculum Exam - Cervix: normal appearance of the cervix, normal palpation, no lesions, no masses and nontender Bimanual exam- vagina & uterus: normal bimanual exam, normal palpation, uterine size normal, normal palpation, uterine shape normal, No Cervical tenderness present and non-tender Bimanual Exam- Adnexa, other: normal adnexae Back/Spine/Pelvis Back: no CVA tenderness Office Procedures Colposcopy Before the procedure was started discussed with the patient the procedure, alternatives & all the risks associated with the procedure (bleeding, infection, injury to vagina, bladder, vessels, possible need for transfusion with all its risks) then patient signed the consent Pap smear = ascus/HPV E6/E7 positive Urine test done in the office was negative Speculum inserted, acetic acid used Colposcopy done Transformation zone seen, acetowhite lesions identified at 5+6+7+11+12+1+3 o?clock, cervical biopsies taken from 5+6+7+11+12+1+3 o?clock, ECC done afterwards. Vaginoscopy of the upper vagina showed no evidence of any aceto-white lesions Monsel solution used for hemostasis. The patient tolerated well . At the end the patient was instructed to call if temp>100.4, abdominal pain, n/v, bleeding; The patient was given the following instructions: nothing per vagina, no intercourse or bath tub use. All questions answered the patient verbalized understanding. Instructed the patient to make an appointment in 2 weeks for follow-up This note was generated with a voice recognition program. Some errors may have been overlooked during the review of this note. Sometimes these errors may affect the content or meaning of a given sentence. 10990-[id number] of cervix including upper vagina with biopsy and ECC Procedure code (CPT) selection complete Results AMB Test Urine AMB Test Urine Negative Last Edit by ISIAH Galaviz on 06/13/23 10:48 Results Reviewed Results Reviewed: Laboratory Last Values [facility]st Clinic Negative 06/13/23 10:47 Assessment & Plan Assessment & Plan (1) ASCUS with positive high risk HPV cervical: Code(s): R87.610 - Atypical squamous cells of undetermined significance on cytologic smear of cervix (ASC-US); R87.810 - Cervical high risk human papillomavirus (HPV) DNA test positive Category: Medical Plan: Discussed with the patient the result of her abnormal pap, its significance, risk of progression, persistence, and regression. the false positive/negative rate of a Pap smear as a screening test in detecting cervical cancer and the indication for a diagnostic test -colposcopy, biopsy, endocervical curettage. Colposcopy done, see procedure note. The patient verbalized understanding and agreed with the plan, all questions answered. Orders: Orders AMB Colposcopy Today R87.610 - Atypical squamous cells of undetermined significance on cytologic smear of cervix (ASC-US), R87.810 - Cervical high risk human papillomavirus (HPV) DNA test positive AMB HCG Urine Test Today Z32.02 - Encounter for test, result negative Coding Level of Care Code Procedure Only Diagnoses ASCUS with positive high risk HPV cervical R87.610; R87.810 CPT Codes Colposcopy - CPT: 45998-[id number] of cervix including upper vagina with biopsy and ECC ([id number])
[2023-06-13 10:43] VITALS: BP 116/60
== END 2023-06-13 13:05 | disposition home or self-care (01) ==
PROVIDERS: PCP Internal Medicine; Referring Provider Internal Medicine; Visit Provider Obstetrics & Gynecology
DX: R87.610 Atypical squamous cells of undetermined significance on cytologic smear of cervix (ASC-US) (principal); R87.810 Cervical high risk human papillomavirus (HPV) DNA test positive; Z32.02 Encounter for pregnancy test, result negative
CPT/HCPCS: 57454

== ENCOUNTER 2023-06-13 10:15 | Outpatient (REF) | payer MEDICAID, SELFPAY | END 2023-06-13 10:16 | disposition home or self-care (01) | LOC: HO.LNP 10:15 | PROVIDERS: PCP Internal Medicine; Visit Provider Obstetrics & Gynecology | DX: R87.810 Cervical high risk human papillomavirus (HPV) DNA test positive (principal); R87.610 Atypical squamous cells of undetermined significance on cytologic smear of cervix (ASC-US) | CPT/HCPCS: 57454; 81025; 88305 ==

== ENCOUNTER 2023-09-14 11:44 | Outpatient (AMB) | payer MEDICAID, SELFPAY ==
--- NOTE | 2023-09-14 12:13 | A.OFFVIS_ITS ---
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 The patient is doing well with no complaints. The pathology showed the following: A. Endocervix, curettage: Endocervical glandular mucosa; negative for dysplasia B. Cervix, 1:00, biopsy: Endocervical glandular and squamous mucosa with inflammation and reactive changes; negative for dysplasia. C. Cervix, 3:00, biopsy: No tissue present for evaluation. D. Cervix, 5:00, biopsy: Squamous and endocervical glandular mucosa with inflammation and reactive changes; negative for dysplasia. E. Cervix, 6:00, biopsy: Squamous and endocervical glandular mucosa with inflammation and reactive changes; negative for dysplasia. F. Cervix, 7:00, biopsy: Squamous and endocervical glandular mucosa with inflammation; negative for dysplasia. G. Cervix, 11:00, biopsy: Squamous and endocervical glandular mucosa with inflammation and reactive changes; negative for dysplasia. H. Cervix, 12:00, biopsy: Endocervical glandular mucosa and rare detached squamous cells; negative for dysplasia [facility] Medical History Vitamin A deficiency Obesity (BMI 35.0-39.9 without comorbidity) Surgical History Hx of tubal ligation Family History Mother Depression Father Back ache Brother No problems noted. Daughter No problems noted. Daughter No problems noted. Son No problems noted. Social History Alcohol intake: never Patient Tobacco Use Status: Never used Tobacco Review of Systems Const All systems reviewed & are unremarkable except as noted in HPI and below Reports as per HPI and Reports no additional complaints GI Reports no additional complaints Reports no additional complaints Physical Exam Vital Signs: BMI result Body Mass Index 35.9 Assessment & Plan Assessment & Plan (1) ASCUS with positive high risk HPV cervical: Code(s): R87.610 - Atypical squamous cells of undetermined significance on cytologic smear of cervix (ASC-US); R87.810 - Cervical high risk human papillomavirus (HPV) DNA test positive Category: Medical Plan: Discussed with the patient the pathology results of the colposcopy biopsies & endocervical curettage ( negative). Discussed with the patient the sensitivity specificity, positive and negative predictive value in detecting cervical cancer in addition discussed the regression, persistence and progression rates. Recommended co-testing in 12 months, if cytology and or HPV are abnormal will proceed was colposcopy biopsy and endocervical curettage. Instructions given to the patient to schedule a co test appointment in 1 year. All questions answered the patient verbalized understanding. Coding Level of Care Code Est Pt Level 3 (93925) Diagnoses ASCUS with positive high risk HPV cervical R87.610; R87.810
[2023-09-14 12:14] VITALS: BMI 35.9
== END 2023-09-14 12:26 | disposition home or self-care (01) ==
LOC: HO.HWS 11:44
PROVIDERS: PCP Internal Medicine; Referring Provider Internal Medicine; Visit Provider Obstetrics & Gynecology
DX: R87.610 Atypical squamous cells of undetermined significance on cytologic smear of cervix (ASC-US) (principal); R87.810 Cervical high risk human papillomavirus (HPV) DNA test positive
CPT/HCPCS: 99213

== ENCOUNTER → 2023-09-14 11:44 | Outpatient (BNVA) | payer SELFPAY | PROVIDERS: PCP Internal Medicine; Visit Provider Obstetrics & Gynecology | DX: R87.610 Atypical squamous cells of undetermined significance on cytologic smear of cervix (ASC-US) (principal); R87.810 Cervical high risk human papillomavirus (HPV) DNA test positive; Z98.890 Other specified postprocedural states | CPT/HCPCS: 99212 ==

== ENCOUNTER 2024-01-13 15:31 | Emergency (ER) | payer MEDICAID, SELFPAY ==
[2024-01-13] VITALS (7 sets, daily range): BP systolic 113–146; BP diastolic 50–84; PULSE 80–108; RESP 16–24; TEMP 37–38.1; O2SAT 95–96; BMI 39.0
--- NOTE | ~2024-01-13 | XR_ITS ---
EXAMINATION: XR CHEST CLINICAL INFORMATION: cough COMPARISON: CXR on 09/06/22 TECHNIQUE: 2 views of the chest were obtained. FINDINGS: The cardiac silhouette is normal. There is mild diffuse bronchial wall thickening. Consolidation in the superior segment right lower lobe. There are no pleural effusions or pneumothoraces. The bones and soft tissues are unremarkable for the patient's age. XR/XR chest 2V IMPRESSION: Right lower lobe pneumonia. Electronically signed by: Lennie Woods MD 01/13/2024 04:22 PM A[facility] CLINE
--- NOTE | 2024-01-13 15:34 | ECG_ITS ---
Test Reason : CP Blood Pressure : / mmHG Vent. Rate : 103 BPM Atrial Rate : 103 BPM P-R Int : 168 ms QRS Dur : 092 ms QT Int : 330 ms P-R-T Axes : 046 075 011 degrees QTc Int : 432 ms Sinus tachycardia Nonspecific T wave abnormality Borderline ECG When compared with ECG of 06-SEP-2022 06:48, Vent. rate has increased BY 58 BPM Nonspecific T wave abnormality now evident in Anterolateral leads Referred By: Generic ED Physician Electronically Signed By:WILLIAM DILL
--- NOTE | 2024-01-13 15:38 | ED_ITS ---
HPI - URI/Sore Throat General Chief Complaint: Upper Respiratory Symptoms Stated Complaint: Chest pain, fibral Time Seen by Provider: 01/13/24 20:05 History of Present Illness ED Provider: Danya JAVIER Narrative: The patient is a 28-year-old female who has been feeling unwell since yesterday. She has had a cough and fevers. Her highest temperature was 101 degrees yesterday. She has had some chest pain with coughing. One of her children at home recently has had a respiratory illness. The patient has no history of significant lung disease. No history of previous pneumonias. No nausea or vomiting. She has had a small amount of yellow sputum production. Related Data Previous Rx's ?Medication ?Instructions ?Recorded cholecalciferol (vitamin D3) 125 125 mcg PO DAILY 90 days #90 caps 09/06/22 mcg (5,000 unit) capsule vitamin A palmitate 3,000 mcg 3,000 mcg PO DAILY 90 days #90 caps 03/03/23 (10,000 unit) capsule cefuroxime axetil 500 mg tablet 500 mg PO BID #20 tabs 01/13/24 doxycycline monohydrate 100 mg 100 mg PO BID #20 caps 01/13/24 capsule ibuprofen 400 mg tablet 400 mg PO Q6H PRN pain #14 tabs 01/13/24 Allergies Allergy/AdvReac Type Severity Reaction Status Date / Time No Known Allergies Allergy Verified 01/13/24 15:39 [No Known Allergies*] Review of Systems 2 Review of Systems: Yes all other systems are reviewed and are negative PMFSH Past Medical History Medical History Vitamin A deficiency Obesity (BMI 35.0-39.9 without comorbidity) Surgical History Hx of tubal ligation Family History Family History Mother Depression Father Back ache Brother No problems noted. Daughter No problems noted. Daughter No problems noted. Son No problems noted. Social History Social History Alcohol intake: never Patient Tobacco Use Status: Never used Tobacco Smoked in Last 30 Days: No Use of substances other than those prescribed or required for medical reasons: No Advance Directives: No Advance Directives Information Provided: No Do you have a plan to hurt others: No Plan Patient : No Physical Exam 2 Vital Signs: Vital Signs: Last Vital Signs Temp 100.5 F H 01/13/24 18:43 Pulse 94 01/13/24 20:40 Resp 20 01/13/24 20:40 BP 137/84 01/13/24 20:00 Pulse Ox 96 01/13/24 20:23 O2 Del Method Room Air 01/13/24 20:23 BMI result Body Mass Index 39.0 Const: Other: The patient is awake, alert, pleasant, cooperative. She looks mildly unwell but not in acute distress or respiratory difficulty. HEENT: Head: Yes normal to inspection Face and sinus: Yes normal facial exam Mouth: Normal oral and palatal mucosa present and moist mucous membranes Eyes: General: appearance normal, both eyes and all related structures Neck: Neck: Yes full ROM Resp: Other: Breath sounds are fairly clear bilaterally. No definite crackles appreciated. No wheezing. Cardio: Rate: regular rate Rhythm: regular rhythm Heart sounds: S1 normal heart sound present and S2 normal heart sound present GI: Other: Abdomen is soft and nontender Skin: General skin exam: no rashes or lesions noted Neuro: Other: The patient is awake and alert with a normal mental status. Cranial nerves are grossly intact. She moves her extremities normally. She has a normal gait Extrem: Other: No peripheral edema Course Course Course Narrative: This is an RME: Additional HPI, ROS, PE not included below will be deferred to primary provider. RME assessment and note performed by: Monet Smith PA-C This is a 28-gnvw-oik-female who presents to the ER with complaints of cough, chest pain only when coughing, and fevers since yesterday. Son was sick with pneumonia last week. Plan: xr chest pain, viral swabs 01/13/2024 1845 - Pt was re-evaluated, febrile at 100.5, tachycardic. Xray revealing right lower lobe pneumonia. Will get labs, lactic, blood cultures, advised charge nurse to bring patient back leela Medications Administered Discontinued Medications Generic Name Dose Route Start Last Admin Trade Name Freq PRN Reason Stop Dose Admin Acetaminophen 975 mg 01/13/24 18:43 01/13/24 18:47 Acetaminophen 325 Mg Tablet PO 01/13/24 18:44 975 mg ONCE ONE Administration Albuterol/Ipratropium 3 ml 01/13/24 20:12 01/13/24 20:37 Albuterol/Iprat 2.5/0.5mg 3 Ml Ampul.Neb INHALE 01/13/24 20:13 3 ml ONCE ONE Administration Ceftriaxone Sodium 1 gm 01/13/24 20:09 01/13/24 20:18 Ceftriaxone Sodium 1 Gm Vial IVPUSH 01/13/24 20:10 1 gm ONCE ONE Administration Doxycycline Monohydrate 100 mg 01/13/24 20:11 01/13/24 20:18 Doxycycline Monohydrate 100 Mg Capsule PO 01/13/24 20:12 100 mg ONCE ONE Administration Sodium Chloride 1,000 mls @ 999 mls/hr 01/13/24 20:15 01/13/24 20:19 Ns IV 01/13/24 21:15 999 mls/hr .Q1H1M RAMÓN Administration Ibuprofen 400 mg 01/13/24 20:10 01/13/24 20:18 Ibuprofen 400 Mg Tablet PO 01/13/24 20:11 400 mg ONCE ONE Administration Medical Decision Making Medical Decision Making [facility] Narrative: The patient presents with a 2 day illness of fevers up to 101 together with a cough and a small amount of yellow sputum. She has no history of lung disease. There is a sick child at home. Chest x-ray shows a right lower lobe pneumonia. The patient's vital signs are good. She was given IV ceftriaxone and oral doxycycline. She was given 1 L of crystalloid. She was observed. She seems to be stable. I think she is well enough for a trial of outpatient treatment. She will be prescribed cefuroxime and doxycycline. She was given a work note for the next 3 days. She should return if worse. Lab Data 01/13/24 18:54 01/13/24 18:54 Labs: Lab Results 01/13/24 01/13/24 Range/Units 15:44 18:54 WBC 8.5 (4.8-10.8) X10*3/uL RBC 5.16 (4.20-5.50) X10*6/uL Hgb 15.0 (12.0-16.0) g/dl Hct 44.6 (37.0-47.0) % MCV 86.4 (80.0-98.0) fL MCH 29.1 (27.0-33.0) pg MCHC 33.6 (31.0-35.0) g/dl RDW 13.6 (11.0-16.0) % Plt Count 175 (160-400) X10*3/uL MPV 9.7 (9.4-12.3) fL Immature Gran % (Auto) 0.1 (0.0-0.4) % Neut % (Auto) 77.3 H (45-73) % Lymph % (Auto) 13.0 L (20-40) % [place] % (Auto) 9.2 (2-11) % Eos % (Auto) 0.2 (0-4) % Baso % (Auto) 0.2 (0-2) % Lymph # (Auto) 1.1 L (1.2-4.9) X10*3/uL [place] # (Auto) 0.8 (0.1-1.2) X10*3/uL Eos # (Auto) 0.0 (0.0-0.4) X10*3/uL Baso # (Auto) 0.0 (0.0-0.2) X10*3/uL Abs Immat Gran (auto) 0.01 (0.00-0.03) X10*3/uL Absolute Neuts (auto) 6.6 (2.0-8.3) x10*3/uL Absolute Nucleated RBC 0.000 (0.0-0.012) X10*3/uL Nucleated RBC % (auto) 0.0 (0.0-0.2) /100WBC Sodium 137 (135-145) mmol/L Potassium 3.8 (3.3-5.1) mmol/L Chloride 103 (96-108) mmol/L Carbon Dioxide 21 L (22-29) mmol/L Anion Gap 17 (12-20) BUN 11 (9-16) mg/dL Creatinine 0.87 (0.5-1.4) mg/dL Estim Creat Clear Calc 107.4 Estimated GFR > 60 Random Glucose 101 (60-115) mg/dL Lactic Acid 2.2 H* (0.5-2.0) mmol/L Calcium 9.5 (8.4-10.2) mg/dL Total Bilirubin 0.8 (0.0-1.0) mg/dL Direct Bilirubin 0.3 (0.0-0.5) mg/dL AST 25 (5-31) U/L ALT 19 (0-31) U/L Alkaline Phosphatase 89 (39-117) U/L Troponin I High Sens < 2.7 (<3.5-17.0) ng/L Total Protein 8.4 H (6.5-8.0) g/dL Albumin 4.5 (3.5-5.0) g/dL Beta HCG, Quant < 2 mIU/mL Influenza Type A (PCR) NEGATIVE (Negative) Influenza Type B (PCR) NEGATIVE (Negative) RSV RNA Qual (PCR) NEGATIVE (Negative) SARS-CoV-2 RNA (RT-PCR) NEGATIVE (Negative) Discharge Plan Discharge Clinical Impression: Right lower lobe pneumonia Patient Disposition: Home, Self-Care Instructions: Community Acquired Pneumonia (ED) Additional Instructions: Your x-ray shows that you have a pneumonia in your right lower lung. A pneumonia is an infection within the lung. You have been started on 2 different antibiotics. I have sent prescriptions to your pharmacy for ongoing antibiotics. Please cone picker these prescriptions tomorrow morning and take 1 dose of each of the medications tomorrow morning. After that take the medications approximately every 12 hours (2 times a day). Drink lot of fluids. Use ibuprofen and acetaminophen as needed for discomfort. I think you should take the next several days off work to rest. You have been given a work note. Please plan on following up with your regular doctor's office in the next week or 2. Return to the emergency room if you feel significantly worse at any time. Prescriptions: New cefuroxime axetil 500 mg tablet 500 mg PO BID Qty: 20 0RF doxycycline monohydrate 100 mg capsule 100 mg PO BID Qty: 20 0RF ibuprofen 400 mg tablet 400 mg PO Q6H PRN (Reason: pain) Qty: 14 0RF No Action cholecalciferol (vitamin D3) 125 mcg (5,000 unit) capsule 125 mcg PO DAILY 90 Days Qty: 90 1RF vitamin A palmitate 3,000 mcg (10,000 unit) capsule 3,000 mcg PO DAILY 90 Days Qty: 90 0RF Referrals: [facility] [Provider Group] (Pneumonia) Stand Alone Forms: Work/School Release Print Language: Swedish
[2024-01-13 16:29] LABS: Influenza A PCR NEGATIVE (Negative); Influenza B PCR NEGATIVE (Negative); Resp Syncy Virus RNA Qual PCR NEGATIVE (Negative); SARS COV2 PCR INHOUSE NEGATIVE (Negative)
[2024-01-13] MEDS: Acetaminophen 325 MG TABLET 975 MG PO (18:47)
[2024-01-13 19:07] LABS: MANUAL DIFF FLAG NO
[2024-01-13 19:08] LABS: Basophils Percent Auto 0.2 % (0-2); Eosinophils Percent Auto 0.2 % (0-4); Hematocrit 44.6 % (37.0-47.0); Imm Gran Abs Auto 0.01 X10*3/uL (0.00-0.03); Imm Gran Pct Auto 0.1 % (0.0-0.4); Lymphocytes Absolute Auto 1.1 X10*3/uL (1.2-4.9); Mean Corpuscular HGB Conc 33.6 g/dl (31.0-35.0); Mean Corpuscular Hemoglobin 29.1 pg (27.0-33.0); Mean Corpuscular Volume 86.4 fL (80.0-98.0); Mean Platelet Volume 9.7 fL (9.4-12.3); Monocytes Absolute Auto 0.8 X10*3/uL (0.1-1.2); Monocytes Percent Auto 9.2 % (2-11); Neutrophils Absolute Auto 6.6 x10*3/uL (2.0-8.3); Neutrophils Percent Auto 77.3 % (45-73); Platelet Count 175 X10*3/uL (160-400); Red Blood Count 5.16 X10*6/uL (4.20-5.50); Red Cell Distribution Width 13.6 % (11.0-16.0); White Blood Count 8.5 X10*3/uL (4.8-10.8)
[2024-01-13 19:25] LABS: Alanine Aminotransferase 19 U/L (0-31); Albumin Level 4.5 g/dL (3.5-5.0); Alkaline Phosphatase 89 U/L (39-117); Anion Gap 17 (12-20); Aspartate Amino Transferase 25 U/L (5-31); Bilirubin Direct 0.3 mg/dL (0.0-0.5); Bilirubin Total 0.8 mg/dL (0.0-1.0); Blood Urea Nitrogen 11 mg/dL (9-16); Calcium 9.5 mg/dL (8.4-10.2); Carbon Dioxide 21 mmol/L (22-29); Chloride 103 mmol/L (96-108); Creatinine Clr Calc Pharmacy 107.4; Estimated Glomerular Filt Rate > 60; Glucose Random 101 mg/dL (60-115); Potassium 3.8 mmol/L (3.3-5.1); Sodium 137 mmol/L (135-145); Total Protein 8.4 g/dL (6.5-8.0)
[2024-01-13 19:34] LABS: HCG Quantitative < 2 mIU/mL; Troponin-I High Sensitivity < 2.7 ng/L (<3.5-17.0)
[2024-01-13 19:38] LABS: Lactic Acid 2.2 mmol/L (0.5-2.0)
[2024-01-13] MEDS: Doxycycline Monohydrate 100 MG CAPSULE PO (20:18)
[2024-01-13] MEDS: cefTRIAXone sodium 1 GM VIAL IVPUSH (20:18)
[2024-01-13] MEDS: Ibuprofen 400 MG TABLET PO (20:18)
[2024-01-13] MEDS: 0.9 % Sodium Chloride 1,000 ML 999 ML IV (20:19)
[2024-01-13] MEDS: Albuterol/Iprat 2.5/0.5MG 3 ML AMPUL.NEB INHALE (20:37)
[2024-01-13 21:03] LABS: Reflex Lactate? Lactic Acid Added
== END 2024-01-13 22:34 | disposition home or self-care (01) ==
PROVIDERS: Physician Assistant Medical; Emergency Provider Emergency Medicine
DX: J18.1 Lobar pneumonia, unspecified organism (principal); R00.0 Tachycardia, unspecified; R07.89 Other chest pain; R05.9 Cough, unspecified; R50.9 Fever, unspecified; Z03.818 Encounter for observation for suspected exposure to other biological agents ruled out; Z79.899 Other long term (current) drug therapy
CPT/HCPCS: 0241U; 36415; 71046; 80048; 80076; 83605; 84484; 84702; 85025; 87040; 93005; 94640; 99284; 99285; J0696

== ENCOUNTER → 2024-01-13 15:34 | Outpatient (BNV) | payer MEDICAID, SELFPAY | PROVIDERS: Emergency Provider Emergency Medicine; Visit Provider Internal Medicine | DX: R07.9 Chest pain, unspecified (principal); R00.0 Tachycardia, unspecified; R94.31 Abnormal electrocardiogram [ECG] [EKG] | CPT/HCPCS: 93010 ==

== ENCOUNTER 2024-04-30 06:33 | Emergency (ER) | payer MEDICAID, SELFPAY ==
[2024-04-30 06:35] VITALS: BP 126/60; PULSE 114; RESP 20; TEMP 37.2; O2SAT 98; BMI 38.7
[2024-04-30 07:19] LABS: IDNOW Serial# 58CA691E; Strep A Nucleic Acid Negative (Negative)
[2024-04-30 07:30] LABS: Influenza A PCR NEGATIVE (Negative); Influenza B PCR NEGATIVE (Negative); Resp Syncy Virus RNA Qual PCR NEGATIVE (Negative); SARS COV2 PCR INHOUSE POSITIVE (Negative)
--- NOTE | 2024-04-30 07:49 | ED_ITS ---
HPI - URI/Sore Throat General Chief Complaint: Upper Respiratory Symptoms Stated Complaint: congestion, itchy throat, fever, body aches Time Seen by Provider: 04/30/24 07:23 History of Present Illness HPI Narrative: patient is a 28-year-old female presents today with having coughing congestion upper respiratory symptoms that is been ongoing for about 2 days. 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 There is subjective fever. Patient has no significant past medical history. Previously vaccinated for COVID. Came in for further evaluation Related Data Previous Rx's ?Medication ?Instructions ?Recorded cholecalciferol (vitamin D3) 125 125 mcg PO DAILY 90 days #90 caps 09/06/22 mcg (5,000 unit) capsule vitamin A palmitate 3,000 mcg 3,000 mcg PO DAILY 90 days #90 caps 03/03/23 (10,000 unit) capsule cefuroxime axetil 500 mg tablet 500 mg PO BID #20 tabs 01/13/24 doxycycline monohydrate 100 mg 100 mg PO BID #20 caps 01/13/24 capsule ibuprofen 400 mg tablet 400 mg PO Q6H PRN pain #14 tabs 01/13/24 nirmatrelvir 300 mg (150 mg See Rx Instructions PO .COMPLEX 04/30/24 x2)-ritonavir 100 mg tablet,dose #30 ea pack (Paxlovid) Allergies Allergy/AdvReac Type Severity Reaction Status Date / Time No Known Allergies Allergy Verified 04/30/24 06:37 [No Known Allergies*] Review of Systems Review of Systems: positive coughing congestion upper respiratory symptoms Yes all other systems are reviewed and are negative PMFSH Past Medical History Attestation statement: The following information was validated with the patient. Medical History Vitamin A deficiency Obesity (BMI 35.0-39.9 without comorbidity) Surgical History Hx of tubal ligation Family History Family History Mother Depression Father Back ache Brother No problems noted. Daughter No problems noted. Daughter No problems noted. Son No problems noted. Social History Social History Alcohol intake: never Patient Tobacco Use Status: Never used Tobacco Advance Directives: No Advance Directives Information Provided: Yes Do you have a plan to hurt others: No Plan Physical Exam Vital Signs: Vital Signs: Last Vital Signs Temp 98.9 F 04/30/24 06:35 Pulse 114 H 04/30/24 06:35 Resp 20 04/30/24 06:35 BP 126/60 04/30/24 06:35 Pulse Ox 98 04/30/24 06:35 O2 Del Method Room Air 04/30/24 06:35 BMI result Body Mass Index 38.7 Appearance: Alert. Oriented X3. No acute distress. Eyes: Pupils equal, round and reactive to light. ENT: Pharynx normal. Neck: Normal inspection. Neck supple. No lymph nodes noted. No crepitus CVS: Normal heart rate and rhythm. Pulses normal. Normal S1 and S2 Respiratory: No respiratory distress. Breath sounds normal. No Wheezing. No rales Abdomen: Soft and nontender. No rigidity. No distention. good BS x4 Skin: Skin warm and dry. Normal skin color. Normal skin turgor. Extremities: No lower extremity edema. Neurovascular intact to all extremities. No Lacerations. No Rash Neuro: Oriented X 3. No motor deficit. No sensory deficit. Moving all extermities. No slurred speech Medical Decision Making Medical Decision Making MDM Narrative: Well-appearing O2 sat is 98% on room air patient's COVID test came back positive. Likely the cause of patient's upper respiratory symptoms. Patient previously vaccinated previously well. Explained to patient pros and cons of antiviral as it has symptom is less than 5 days patient wants the antiviral medication. She was prescribed Paxlovid. Follow-up on an outpatient basis. Currently in stable condition. Differential Diagnosis Differential Diagnoses: The differential diagnosis associated with the presentation includes COVID flu RSV upper respiratory symptoms strep throat Admission/Observation Consideration of admission/observation: Escalation of care including admission/observation considered Lab Data [facility] Lab Attestation statement: I reviewed the patient's lab results. Labs: Lab Results 04/30/24 Range/Units 06:48 Influenza Type A (PCR) NEGATIVE (Negative) Influenza Type B (PCR) NEGATIVE (Negative) RSV RNA Qual (PCR) NEGATIVE (Negative) SARS-CoV-2 RNA (RT-PCR) POSITIVE A (Negative) S. pyogenes GrpA NONA Negative (Negative) Prescription Management I considered prescription management with: Antibiotic ( antibiotics not needed) Social Determinants Patient?s care significantly limited by Social Determinants of Health including: Problems related to primary support group Discharge Plan Discharge Clinical Impression: COVID-19 Patient Disposition: Home, Self-Care Instructions: COVID-19 (Coronavirus Disease 2019) (ED) Prescriptions: New Paxlovid 300 mg (150 mg x 2)-100 mg tablets,dose pack See Rx Instructions .ROUTE .COMPLEX Qty: 30 0RF Rx Instructions: take TWO 150 mg tablets of nirmatrelvir with ONE 100 mg tablet of ritonavir twice daily for 5 days No Action cholecalciferol (vitamin D3) 125 mcg (5,000 unit) capsule 125 mcg PO DAILY 90 Days Qty: 90 1RF vitamin A palmitate 3,000 mcg (10,000 unit) capsule 3,000 mcg PO DAILY 90 Days Qty: 90 0RF cefuroxime axetil 500 mg tablet 500 mg PO BID Qty: 20 0RF doxycycline monohydrate 100 mg capsule 100 mg PO BID Qty: 20 0RF ibuprofen 400 mg tablet 400 mg PO Q6H PRN (Reason: pain) Qty: 14 0RF Referrals: [facility] [Primary Care Provider] - 5 days Stand Alone Forms: Work/School Release Print Language: Luxembourger
[2024-04-30 07:56] VITALS: BP 130/80; PULSE 107; RESP 18; TEMP 37.1; O2SAT 98
== END 2024-04-30 07:59 | disposition home or self-care (01) ==
PROVIDERS: Emergency Provider Emergency Medicine Emergency Medical Services
DX: U07.1 COVID-19 (principal); R09.81 Nasal congestion; R50.9 Fever, unspecified; M79.10 Myalgia, unspecified site
CPT/HCPCS: 0241U; 87651; 99282; 99283

== ENCOUNTER 2024-07-15 08:20 | Emergency (ER) | payer MEDICAID, SELFPAY ==
[2024-07-15 08:34] VITALS: BP 117/71; PULSE 70; RESP 18; TEMP 36.5; O2SAT 97; BMI 38.3
--- NOTE | 2024-07-15 09:25 | ED_ITS ---
HPI - URI/Sore Throat General Chief Complaint: Upper Respiratory Symptoms Stated Complaint: congestion, sore throat Time Seen by Provider: 07/15/24 08:36 Source: patient, family and old records reviewed Mode of arrival: ambulatory Limitations: no limitations History of Present Illness ED Provider: NEW JAVIER Narrative: 28 yo female with no sig PMH here with c/o URI symptoms cough, runny nose, sore throat for the last day after exposure to her sick kids. NO recent travel, no n/v/d no CP/SOB. Same symptoms as the children. No fevers. MD elicited complaint: cough, sore throat and rhinorrhea Onset (ago): day(s) (1) Consistency: intermittent Severity: moderate Description of mucous: watery Able to tolerate fluids by mouth: Yes Exacerbating factors: swallowing Relieving factors: nothing Context: sick contacts Associated symptoms: rhinorrhea and sore throat Treatments prior to arrival: none Related Data Previous Rx's ?Medication ?Instructions ?Recorded cholecalciferol (vitamin D3) 125 125 mcg PO DAILY 90 days #90 caps 09/06/22 mcg (5,000 unit) capsule vitamin A palmitate 3,000 mcg 3,000 mcg PO DAILY 90 days #90 caps 03/03/23 (10,000 unit) capsule cefuroxime axetil 500 mg tablet 500 mg PO BID #20 tabs 01/13/24 doxycycline monohydrate 100 mg 100 mg PO BID #20 caps 01/13/24 capsule ibuprofen 400 mg tablet 400 mg PO Q6H PRN pain #14 tabs 01/13/24 nirmatrelvir 300 mg (150 mg See Rx Instructions PO .COMPLEX 04/30/24 x2)-ritonavir 100 mg tablet,dose #30 ea pack (Paxlovid) Allergies Allergy/AdvReac Type Severity Reaction Status Date / Time No Known Allergies Allergy Verified 07/15/24 08:35 [No Known Allergies*] Review of Systems Review of Systems: Constitutional : no Fever, no Chills ENT/Mouth : positive sore throat, positive runny nose Eyes: No Discharge Cardiovascular : No Chest Pain, No SOB Respiratory : No Cough, No Sputum Gastrointestinal : No Nausea, No Vomiting, No Diarrhea Genitourinary : No Dysuria, No Urinary Frequency Musculoskeletal : no Myalgia Skin : No rash Neuro : No Headache all other systems reviewed and are negative PMFSH Past Medical History Attestation statement: The following information was validated with the patient. Source: old records reviewed Medical History Vitamin A deficiency Obesity (BMI 35.0-39.9 without comorbidity) Surgical History Hx of tubal ligation Family History Family History Mother Depression Father Back ache Brother No problems noted. Daughter No problems noted. Daughter No problems noted. Son No problems noted. Social History Social History Alcohol intake: never Patient Tobacco Use Status: Never used Tobacco Advance Directives: No Advance Directives Information Provided: Yes Do you have a plan to hurt others: No Plan Physical Exam Vital Signs: Vital Signs: Last Vital Signs Temp 97.7 F 07/15/24 08:34 Pulse 70 07/15/24 08:34 Resp 18 07/15/24 08:34 BP 117/71 07/15/24 08:34 Pulse Ox 97 07/15/24 08:34 O2 Del Method Room Air 07/15/24 08:34 BMI result Body Mass Index 38.3 Appearance: Alert. Oriented X3. No acute distress. Eyes: Pupils equal, round and reactive to light. ENT: Pharynx mild erythema no exudates no swelling, TMs normal bilaterally Neck: Normal inspection. Neck supple. CVS: Normal heart rate and rhythm. Pulses normal. Respiratory: No respiratory distress. Breath sounds normal. Abdomen: Soft and nontender. Skin: Skin warm and dry. Normal skin color. Normal skin turgor. Extremities: No lower extremity edema. No calf ttp Neuro: Oriented X 3. No motor deficit. No sensory deficit. CN2-12 intact Medical Decision Making Medical Decision Making MDM Narrative: 28 yo female with no sig PMH here with c/o URI symptoms after exposure to her kids who are also sick - at this time she is well hydrated on exam and has clear lungs, no signs of deeper space infection in neck/throat - will obtain viral panel and strep swab. Anticipate DC home. Differential Diagnosis Differential Diagnoses: The differential diagnosis associated with the presentation includes viral syndrome, strep throat Admission/Observation Consideration of admission/observation: Escalation of care including admission/observation considered not toxic well hydrated stable for DC Lab Data MDM Lab Attestation statement: I reviewed the patient's lab results. Labs: Lab Results 07/15/24 Range/Units 08:44 Influenza Type A (PCR) NEGATIVE (Negative) Influenza Type B (PCR) NEGATIVE (Negative) RSV RNA Qual (PCR) NEGATIVE (Negative) SARS-CoV-2 RNA (RT-PCR) NEGATIVE (Negative) S. pyogenes GrpA NONA Negative (Negative) External Record Review External record reviewed: Outpatient record Prescription Management I considered prescription management with: Antibiotic Discharge Plan Discharge Clinical Impression: Upper respiratory infection Qualifiers: URI type: unspecified URI Qualified Code(s): J06.9 - Acute upper respiratory infection, unspecified Patient Disposition: Home, Self-Care Instructions: Upper Respiratory Infection (ED) Additional Instructions: rest and stay hydrated alternate tylenol and motrin for pain return for any worsening symptoms or concerns. negative for covid, flu, rsv, strep Prescriptions: No Action cholecalciferol (vitamin D3) 125 mcg (5,000 unit) capsule 125 mcg PO DAILY 90 Days Qty: 90 1RF vitamin A palmitate 3,000 mcg (10,000 unit) capsule 3,000 mcg PO DAILY 90 Days Qty: 90 0RF cefuroxime axetil 500 mg tablet 500 mg PO BID Qty: 20 0RF doxycycline monohydrate 100 mg capsule 100 mg PO BID Qty: 20 0RF ibuprofen 400 mg tablet 400 mg PO Q6H PRN (Reason: pain) Qty: 14 0RF Paxlovid 300 mg (150 mg x 2)-100 mg tablets,dose pack See Rx Instructions .ROUTE .COMPLEX Qty: 30 0RF Rx Instructions: take TWO 150 mg tablets of nirmatrelvir with ONE 100 mg tablet of ritonavir twice daily for 5 days Print Language: Sri Lankan
[2024-07-15 09:32] LABS: IDNOW Serial# 08D9AD1C; Strep A Nucleic Acid Negative (Negative)
[2024-07-15 09:34] LABS: Influenza A PCR NEGATIVE (Negative); Influenza B PCR NEGATIVE (Negative); Resp Syncy Virus RNA Qual PCR NEGATIVE (Negative); SARS COV2 PCR INHOUSE NEGATIVE (Negative)
[2024-07-15 09:39] VITALS: BP 117/71; PULSE 70; RESP 18; TEMP 36.5; O2SAT 97
== END 2024-07-15 09:48 | disposition home or self-care (01) ==
PROVIDERS: Emergency Provider Emergency Medicine; PCP Internal Medicine
DX: J06.9 Acute upper respiratory infection, unspecified (principal); R05.9 Cough, unspecified; J02.9 Acute pharyngitis, unspecified; R09.89 Other specified symptoms and signs involving the circulatory and respiratory systems
CPT/HCPCS: 0241U; 87651; 99282; 99283

== ENCOUNTER 2024-07-21 13:38 | Emergency (ER) | payer MEDICAID, SELFPAY ==
--- NOTE | ~2024-07-21 | XR_ITS ---
CLINICAL HISTORY: fall off step 3 view left foot Comparison: None Findings: No fractures or dislocations. No significant loss of joint space, osteophytes, or erosions. No ankle effusion. No radiopaque foreign body. IMPRESSION: 1. No acute findings. This document has been electronically signed by: Wes Mcintyre MD on 07/21/2024 15:02:19
--- NOTE | ~2024-07-21 | XR_ITS ---
CLINICAL HISTORY: fall off step 3 view left ankle Comparison: None Findings: No acute fractures. Ankle mortise intact. No significant arthritic change or erosions. No ankle effusion. No radiopaque foreign body. IMPRESSION: 1. No acute findings. This document has been electronically signed by: Wes Mcintyre MD on 07/21/2024 15:02:08
[2024-07-21 14:25] VITALS: BP 115/59; PULSE 87; RESP 18; TEMP 36.8; O2SAT 97; BMI 27.3
--- NOTE | 2024-07-21 14:25 | ED_ITS ---
HPI - Extremity Injury (Lower) General Chief Complaint: Skin/Abscess/Foreign Body Stated Complaint: stepped on nail l foot Time Seen by Provider: 07/21/24 15:10 Source: patient, RN notes reviewed and old records reviewed Mode of arrival: ambulatory Limitations: no limitations History of Present Illness ED Provider: Kathleen HPI Narrative: Patient is a 28-year-old female presenting to the emergency department with complaint of 2 puncture wounds to left heel as well as left foot and ankle pain after falling approximately 1 ft off a ladder last night. She states that the rung broke, causing her to fall onto nails on the ground which then punctured her foot. She was not wearing a shoe at the time. Her Tdap is currently up-to-date. She also complains of bruising to her right calf. MD complaint: foot injury Onset (ago): hour(s) Related Data Previous Rx's ?Medication ?Instructions ?Recorded cholecalciferol (vitamin D3) 125 125 mcg PO DAILY 90 days #90 caps 09/06/22 mcg (5,000 unit) capsule vitamin A palmitate 3,000 mcg 3,000 mcg PO DAILY 90 days #90 caps 03/03/23 (10,000 unit) capsule cefuroxime axetil 500 mg tablet 500 mg PO BID #20 tabs 01/13/24 doxycycline monohydrate 100 mg 100 mg PO BID #20 caps 01/13/24 capsule ibuprofen 400 mg tablet 400 mg PO Q6H PRN pain #14 tabs 01/13/24 nirmatrelvir 300 mg (150 mg See Rx Instructions PO .COMPLEX 04/30/24 x2)-ritonavir 100 mg tablet,dose #30 ea pack (Paxlovid) amoxicillin 875 mg-potassium 1 tab PO BID #6 tabs 07/21/24 clavulanate 125 mg tablet Allergies Allergy/AdvReac Type Severity Reaction Status Date / Time No Known Allergies Allergy Verified 07/21/24 14:28 [No Known Allergies*] Review of Systems 2 Review of Systems: As per HPI Yes all other systems are reviewed and are negative Constitutional: Constitutional: Reports as per HPI [facility] Past Medical History Medical History Vitamin A deficiency Obesity (BMI 35.0-39.9 without comorbidity) Surgical History Hx of tubal ligation Family History Family History Mother Depression Father Back ache Brother No problems noted. Daughter No problems noted. Daughter No problems noted. Son No problems noted. Social History Social History Alcohol intake: never Patient Tobacco Use Status: Never used Tobacco Advance Directives: No Advance Directives Information Provided: No Physical Exam 2 Vital Signs: Vital Signs: Last Vital Signs Temp 98.3 F 07/21/24 14:25 Pulse 87 07/21/24 14:25 Resp 18 07/21/24 14:25 BP 115/59 L 07/21/24 14:25 Pulse Ox 97 07/21/24 14:25 O2 Del Method Room Air 07/21/24 14:25 BMI result Body Mass Index 27.3 Vital signs have been reviewed and appear to be correct. Blood pressure normal. Heart rate normal. Respiratory rate normal. Temperature normal. Oxygen saturation normal. Const: General: cooperative, healthy appearing and no acute distress O rientation/consciousness: oriented to person, oriented to place, oriented to time and patient oriented x3 Limitations: no limitations HEENT: Head: Yes normocephalic and Yes atraumatic Ears: external ears normal General nose exam: Normal external nose present Face and sinus: Yes face symmetric Mouth: oropharynx normal and moist mucous membranes Throat: Yes uvula midline Eyes: Pupils: Equal, round and reactive pupils present Neck: Neck: Yes normal visual inspection and Yes supple Resp: Effort & Inspection: normal respiratory effort and able to speak in complete sentences Auscultation: clear to auscultation bilaterally Cardio: Rate: regular rate Rhythm: regular rhythm Heart sounds: S1 normal heart sound present and S2 normal heart sound present GI: Palpation (GI): Soft to palpation and nontender Auscultation: n ormoactive bowel sounds : General: Yes no CVA tenderness Back/Spine/Pelvis: Back: no CVA tenderness Skin: General skin exam: elasticity normal and turgor normal Neuro: General: oriented to person, oriented to place, oriented to time, patient oriented x3, moves all extremities, no focal motor deficits and CN's II- XI intact bilaterally Cranial nerves: Yes Equal, round and reactive pupils present Cognition (Neuro): normal cognition Extrem: General: Yes full ROM, Yes no pedal edema and Yes no calf tenderness Right lower extremity: lower leg Details: ecchymosis proximal lower leg posteromedial Details: single and foot Details: vascular exam Details: dorsalis pedis pulse present, posterior tibial pulse present and normal capillary refill Left lower extremity: ankle Details: normal to inspection and normal ROM; no tenderness and foot Details: normal capillary refill, tenderness Location: of the plantar foot Location: other (heel), toes with normal ROM and puncture wound plantar Details: multiple (two puncture wounds plantar heel) Upper/lower leg/hip images: 1. ecchymosis, mild swelling Ankle/foot/toe images: 1. puncture wound 2. puncture wound Psych: Mental Status: mental status grossly normal Affect: normal affect Thought process: Normal thought process present Course Course Course Narrative: This is a Rapid Medical Exam performed in triage by Ingrid Donahue PA-C. Full HPI, ROS and PE to be performed by primary ED provider. 28 yo F presenting to the ED c/o stepped on nail with L foot s/p falling off ladder step that broke [employer] [employer]. Tetanus UTD. Was NOT wearing shoes PE: + superficial puncture wounds noted to left heel. Mild surrounding swelling. No erythema/active bleeding. Plan: X-ray Medical Decision Making Medical Decision Making MDM Narrative: Patient is a 28-year-old female presenting to the emergency department with complaint of 2 puncture wounds to left heel as well as left foot and ankle pain after falling approximately 1 ft off a ladder last night. On exam patient is awake, A+Ox3, VS WNL, afebrile, normal neurological exam without focal deficits, physical exam findings as above. Given reported symptoms and physical exam findings, initial differential includes but is not limited to puncture wound, foreign body, strain, sprain, fracture. X-rays left foot and ankle notable for no acute fracture or foreign body. My interpretation is in agreement with the radiologist's interpretation. Tdap is up-to-date. No bleeding or other drainage from puncture wounds. Will discharge patient home on 3 day course of prophylactic Augmentin. Advised she can also soak her foot in warm salt water. Instructed patient to assess puncture wounds daily for signs of infection and follow up with PCP or return if this occurs. Return precautions discussed. Patient verbalized understanding of and agreement with plan. Differential Diagnosis Differential Diagnoses: The differential diagnosis associated with the presentation includes As per [facility] Admission/Observation Consideration of admission/observation: Escalation of care including admission/observation considered Patient would have been admitted to the hospital had their work up had any findings where hospital admission was appropriate and their clinical presentation warranted hospital admission. Independent Interpretation I performed an independent interpretation of an: Plain X-Ray Interpretation: X-rays left foot and ankle notable for no acute fracture or foreign body. Radiology Impression Discussion of test interpretation with radiology: I have reviewed the radiologist's reading. Radiologist Impression: 3 view left ankle Comparison: None Findings: No acute fractures. Ankle mortise intact. No significant arthritic change or erosions. No ankle effusion. No radiopaque foreign body. IMPRESSION: 1. No acute findings. CLINICAL HISTORY: fall off step 3 view left foot Comparison: None Findings: No fractures or dislocations. No significant loss of joint space, osteophytes, or erosions. No ankle effusion. No radiopaque foreign body. IMPRESSION: 1. No acute findings. External Record Review External record reviewed: Inpatient record, Office record and Outpatient record Prescription Management I considered prescription management with: Antibiotic Discharge Plan Discharge Clinical Impression: Contusion of right lower leg Puncture wound of foot, left Qualifiers: Encounter type: initial encounter Qualified Code(s): S91.332A - Puncture wound without foreign body, left foot, initial encounter Patient Disposition: Home, Self-Care Instructions: Amoxicillin/Clavulanate Potassium (By mouth), Puncture Wound in the Foot (ED) Additional Instructions: You were evaluated in the emergency department today for injuries to your foot and ankle after a fall. Your x-rays did not show any evidence of acute fractures. You are being prescribed a course of prophylactic antibiotics to prevent infection. We also recommend that you soak your left foot in warm salt water for 10-15 minutes several times daily for the next few days. Check the wounds daily for signs of redness, swelling, thick yellow drainage, or redness streaking up your leg and return to the emergency department if this occurs. Follow up with your primary care provider as needed. Return to the emergency department with new or concerning symptoms. Prescriptions: New amoxicillin-pot clavulanate 875-125 mg tablet 1 tab PO BID Qty: 6 0RF No Action cholecalciferol (vitamin D3) 125 mcg (5,000 unit) capsule 125 mcg PO DAILY 90 Days Qty: 90 1RF vitamin A palmitate 3,000 mcg (10,000 unit) capsule 3,000 mcg PO DAILY 90 Days Qty: 90 0RF cefuroxime axetil 500 mg tablet 500 mg PO BID Qty: 20 0RF doxycycline monohydrate 100 mg capsule 100 mg PO BID Qty: 20 0RF ibuprofen 400 mg tablet 400 mg PO Q6H PRN (Reason: pain) Qty: 14 0RF Paxlovid 300 mg (150 mg x 2)-100 mg tablets,dose pack See Rx Instructions .ROUTE .COMPLEX Qty: 30 0RF Rx Instructions: take TWO 150 mg tablets of nirmatrelvir with ONE 100 mg tablet of ritonavir twice daily for 5 days Print Language: Guamanian
[2024-07-21 16:10] VITALS: BP 115/59; PULSE 87; RESP 18; TEMP 36.8; O2SAT 97
== END 2024-07-21 16:10 | disposition home or self-care (01) ==
PROVIDERS: Emergency Provider Emergency Medicine; PCP Internal Medicine
DX: S91.332A Puncture wound without foreign body, left foot, initial encounter (principal); S80.11XA Contusion of right lower leg, initial encounter; X58.XXXA Exposure to other specified factors, initial encounter; Y93.89 Activity, other specified; Y92.89 Other specified places as the place of occurrence of the external cause; Y99.8 Other external cause status; M25.572 Pain in left ankle and joints of left foot
CPT/HCPCS: 73610; 73630; 99282; 99283

== ENCOUNTER → 2024-07-21 14:29 | Outpatient (BNV) | payer MEDICAID, SELFPAY | PROVIDERS: Emergency Provider Emergency Medicine; PCP Internal Medicine; Visit Provider Radiology Vascular & Interventional Radiology | DX: M25.572 Pain in left ankle and joints of left foot (principal); M79.672 Pain in left foot | CPT/HCPCS: 73610; 73630 ==

== ENCOUNTER 2024-09-29 09:42 | Outpatient (REF) | payer MEDICAID, SELFPAY ==
[2024-09-29 11:30] LABS: Alanine Aminotransferase 18 U/L (0-31); Albumin Level 4.3 g/dL (3.5-5.0); Alkaline Phosphatase 90 U/L (39-117); Anion Gap 13 (12-20); Aspartate Amino Transferase 20 U/L (5-31); Blood Urea Nitrogen 10 mg/dL (9-16); Calcium 9.2 mg/dL (8.4-10.2); Carbon Dioxide 26 mmol/L (22-29); Chloride 105 mmol/L (96-108); Cholesterol 180 mg/dL (<200); Estimated Glomerular Filt Rate > 60; HDL Cholesterol 39 mg/dL (>40); Potassium 4.4 mmol/L (3.3-5.1); Sodium 140 mmol/L (135-145); Total Protein 7.5 g/dL (6.5-8.0); Triglycerides 99 mg/dL (<150)
[2024-09-29 11:39] LABS: Reflex LDLD? No
[2024-09-29 11:40] LABS: Syphilis Screen Nonreactive (Nonreactive)
[2024-09-29 11:45] LABS: HBS Num1 303.05 mIU/mL (0-7.99); HBc Num1 0.06 S/CO (0.00-0.79); HBsAGNum1 0.42 S/CO (0.00-0.99); HIV Num 1 0.05 S/CO (0.00-0.99); Hepatitis A Antibody IgM 0.19 Index (0-0.79); Hepatitis B Surface Antigen Negative (Negative); ~HepC Num1 0.75 S/CO (0.00-0.79); ~Hepatitis A Antibody IgM Nonreactive (Nonreactive); ~Hepatitis B Surface Antibody REACTIVE (Nonreactive); ~Hepatitis C Antibody Nonreactive (Nonreactive)
== END 2024-09-29 09:43 | disposition home or self-care (01) ==
LOC: HO.LAB 09:42
PROVIDERS: PCP Internal Medicine; Visit Provider Internal Medicine
DX: Z00.00 Encounter for general adult medical examination without abnormal findings (principal); E66.812 Obesity, class 2; Z68.35 Body mass index [BMI] 35.0-35.9, adult
CPT/HCPCS: 36415; 80053; 80061; 82306; 84443; 86704; 86706; 86709; 86780; 86803; 87340; 87389

== ENCOUNTER → 2024-12-05 12:48 | Outpatient (REF) | payer MEDICAID, SELFPAY | LOC: HO.SL 12:48 | PROVIDERS: PCP Internal Medicine; Visit Provider Internal Medicine | DX: R06.81 Apnea, not elsewhere classified (principal); E66.9 Obesity, unspecified; R40.0 Somnolence | CPT/HCPCS: 95806 ==

== ENCOUNTER → 2024-12-05 21:00 | Outpatient (BNV) | payer MEDICAID, SELFPAY | PROVIDERS: PCP Internal Medicine; Visit Provider Internal Medicine | DX: R06.83 Snoring (principal) | CPT/HCPCS: 95806 ==

== ENCOUNTER 2025-02-04 17:47 | Emergency (ER) | payer MEDICAID, SELFPAY ==
--- NOTE | ~2025-02-04 | XR_ITS ---
CLINICAL HISTORY: knee pain 4 view left knee Comparison: None provided Findings: No acute displaced fracture. No dislocation. Trace effusion by radiographs. Mild periosteal thickening including proximal tibia, as can be seen with stress phenomenon and venous stasis. No retained metallic foreign body. IMPRESSION: No acute displaced fracture or dislocation. This document has been electronically signed by: Jacoby Devi MD on 02/04/2025 19:04:08
--- NOTE | ~2025-02-04 | XR_ITS ---
CLINICAL HISTORY: Coughing and fever 2 view chest x-ray Comparison: Chest x-ray from 09/06/2022 Findings: No consolidation or effusion. No pneumothorax. Normal size heart. No acute fracture, by chest radiographs. IMPRESSION: No consolidation. This document has been electronically signed by: Jacoby Devi MD on 02/04/2025 19:04:25
[2025-02-04 18:14] VITALS: BP 136/71; PULSE 85; RESP 18; TEMP 36.9; O2SAT 97; BMI 39.0
--- NOTE | 2025-02-04 18:18 | ED_ITS ---
HPI - General Adult General Chief complaint: Upper Respiratory Symptoms Stated complaint: flu symptoms, lt knee pain Time Seen by Provider: 02/04/25 20:11 Source: patient Mode of arrival: ambulatory Limitations: no limitations History of Present Illness ED Provider: Juan Antonio CONROY HPI narrative: The patient is a 29-year-old female presenting to the ED for evaluation of flu- like symptoms which began earlier today. Patient reports nonproductive cough with generalized malaise and body aches. The patient reports 2 of her sons were recently diagnosed with influenza. The patient has not taken any medications for symptoms prior to arrival in the ED. The patient is also reporting several months of intermittent left knee pain which is worse with use. The patient denies any recent fall or trauma, denies any change from baseline pain over the past few months, has not seen her PCP for this complaint. Related Data Previous Rx's ?Medication ?Instructions ?Recorded cholecalciferol (vitamin D3) 125 125 mcg PO DAILY 90 d ays #90 caps 09/06/22 mcg (5,000 unit) capsule vitamin A palmitate 3,000 mcg 3,000 mcg PO DAILY 90 da ys #90 caps 03/03/23 (10,000 unit) capsule cefuroxime axetil 500 mg tablet 500 mg PO BID #20 tabs 01/13/24 doxycycline monohydrate 100 mg 100 mg PO BID #20 caps 01/13/24 capsule ibuprofen 400 mg tablet 400 mg PO Q6H PRN pain #14 t abs 01/13/24 nirmatrelvir 300 mg (150 mg See Rx Instructions PO .CO MPLEX 04/30/24 x2)-ritonavir 100 mg tablet,dose #30 ea pack (Paxlovid) amoxicillin 875 mg-potassium 1 tab PO BID #6 tabs 09/07 clavulanate 125 mg tablet acetaminophen 500 mg capsule 1,000 mg (2 x 500 mg) PO .q8 PRN 02/04/25 fever or pain #30 caps ibuprofen 600 mg tablet 600 mg PO Q8H PRN fever or p ain 02/04/25 #30 tabs Allergies Allergy/AdvReac Type Severity Reaction Status Date / Time No Known Allergies (No Known Allergy Verified 02/04/25 18:16 Allergies*) Review of Systems Review of Systems: Yes all other systems are reviewed and are negative PMFSH Past Medical History Medical History Vitamin A deficiency Obesity (BMI 35.0-39.9 without comorbidity) Surgical History Hx of tubal ligation Family History Family History Mother Depression Father Back ache Brother No problems noted. Daughter No problems noted. Daughter No problems noted. Son No problems noted. Social History Social History Alcohol intake: never Patient Tobacco Use Status: Never used Tobacco Advance Directives: No Advance Directives Information Provided: Yes Do you have a plan to hurt others: No Plan Physical Exam ED Vital Signs: Vital Signs - 24 hr 02/04/25 18:14 02/04/25 21:01 Temperature 98.4 F 98.4 F Pulse Rate 85 85 Respiratory Rate 18 18 Blood Pressure 136/71 136/71 Pulse Oximetry 97 97 Oxygen Delivery Method Room Air Room Air BMI result Body Mass Index 39.0 CONSTITUTIONAL: The patient appears non-toxic, well nourished and in no acute distress. Vital signs as documented. HEAD: Atraumatic, normocephalic. EYES: EOMs grossly intact, pupils equal, conjunctiva clear, no exudate. ENT: Nares patent, no discharge. Airway patent, no audible stridor, visible mucosa is pink and moist without noted lesions. NECK: trachea is midline, no obvious masses or gross abnormalities. CHEST: Symmetric movement, normal appearance. LUNGS: Non-labored work of breathing. CARDIAC: No evidence of hypoperfusion. ABDOMEN: Nondistended, no obvious injury. : Deferred. EXTREMITIES: Moves all extremities spontaneously without evidence of pain. No obvious injury or deformity noted. Ambulates with a steady gait without evidence of discomfort. NEURO: Alert and oriented x3, CN II-XII appear grossly intact. Cerebellar Functioning grossly intact. Speech clear and appropriate. SKIN: Warm, dry, color appropriate. No rashes or lesions noted. Course Course Course Narrative: RME: 29-year-old female presents to ED for flu-like symptoms. Patient is son also has similar symptoms. Swabs and xray ordered Medical Decision Making Medical Decision Making MDM Narrative: 8:48 PM 02/04/2025 (Brian CONROY): The patient is a 29-year-old female presenting to the ED for evaluation of flu-like symptoms which began earlier today. Patient reports nonproductive cough with generalized malaise and body aches. The patient reports 2 of her sons were recently diagnosed with influenza. The patient has not taken any medications for symptoms prior to arrival in the ED. The patient is also reporting several months of intermittent left knee pain which is worse with use. The patient denies any recent fall or trauma, denies any change from baseline pain over the past few months, has not seen her PCP for this complaint. On exam patient is nontoxic appearing, vital signs are normal, patient ambulates with a steady gait without evidence of discomfort using the affected knee. The patient tested negative for influenza, however based on the to sick contacts in her home, and onset of symptoms just today, she is most likely suffering from influenza with a false negative result due to testing early in symptoms. The patient's chest x-ray shows no focal consolidation, strep is negative. The patient's x-ray of her knee shows no acute fracture or other acute injury. The patient will be treated with supportive care for her likely case of influenza, and will be referred to her PCP for her knee complaints. Admission/Observation Consideration of admission/observation: Escalation of care including admission/observation considered Lab Data MDM Lab Attestation statement: I reviewed the patient's lab results. Labs: Lab Results 02/04/25 Range/Units 18:25 Influenza Type A (PCR) NEGATIVE (Negative) Influenza Type B (PCR) NEGATIVE (Negative) RSV RNA Qual (PCR) NEGATIVE (Negative) SARS-CoV-2 RNA (RT-PCR) NEGATIVE (Negative) S. pyogenes GrpA NONA Negative (Negative) Radiology Impression Discussion of test interpretation with radiology: I have reviewed the radiologist's reading. Radiologist Impression: 4 view left knee Comparison: None provided Findings: No acute displaced fracture. No dislocation. Trace effusion by radiographs. Mild periosteal thickening including proximal tibia, as can be seen with stress phenomenon and venous stasis. No retained metallic foreign body. IMPRESSION: No acute displaced fracture or dislocation. This document has been electronically signed by: Jacoby Devi MD on 02/04/2025 19:04:08 2 view chest x-ray Comparison: Chest x-ray from 09/06/2022 Findings: No consolidation or effusion. No pneumothorax. Normal size heart. No acute fracture, by chest radiographs. IMPRESSION: No consolidation. This document has been electronically signed by: Jacoby Devi MD on 02/04/2025 19:04:25 External Record Review External record reviewed: Outpatient record and Prior outpatient labs Prescription Management I considered prescription management with: Pain Medication Discharge Plan Discharge Clinical Impression: Influenza, Chronic knee pain Patient Disposition: Home, Self-Care Instructions: Influenza (ED), Knee Pain (ED), Arthralgia (ED) Additional Instructions: Thank you for choosing [facility] for your care today. Thankfully your exam and vital signs are reassuring. At this time there is no indication for admission to the hospital or continued ED observation, and it is safe to discharge you home. Your knee x-ray shows no evidence of acute fracture, please follow up with the primary care provider for re-evaluation and additional imaging and referral to orthopedics as deemed appropriate. You tested negative for influenza, however seeing as to of your children have recently tested positive for influenza, and your symptoms just began today, you likely suffering from influenza and had a false negative swab. Influenza is likely the cause of your symptoms, this is a self-limited illness which should improve in the next 3-5 days. Please stay well hydrated and get plenty of rest. Please wash your hands frequently, cover your cough when able, and consider wearing a mask to avoid transmitting the virus to other individuals. You should take alternating (staggered) doses of ibuprofen 600mg and Tylenol 1000mg every 4 hours as needed for any additional pain. Please follow up with your primary care physician for re-evaluation, additional management of your symptoms, and continued preventative care. If you do not have a primary care physician, please call the [facility] at [phone] to establish a new primary care physician. While waiting to establish your new primary care physician, you can call our [facility] at [phone] for non-emergency needs. Please return to the emergency department if you develop a severe or sudden change in your symptoms, a fever over 100.4 that does not improve with Tylenol or Ibuprofen, recurrent vomiting, or any other new or worsening symptoms or concerns. Prescriptions: New ibuprofen 600 mg tablet 600 mg PO Q8H PRN (Reason: fever or pain) Qty: 30 0RF acetaminophen 500 mg capsule 1,000 mg PO .q8 PRN (Reason: fever or pain) Qty: 30 0RF No Action cholecalciferol (vitamin D3) 125 mcg (5,000 unit) capsule 125 mcg PO DAILY 90 Days Qty: 90 1RF vitamin A palmitate 3,000 mcg (10,000 unit) capsule 3,000 mcg PO DAILY 90 Days Qty: 90 0RF cefuroxime axetil 500 mg tablet 500 mg PO BID Qty: 20 0RF doxycycline monohydrate 100 mg capsule 100 mg PO BID Qty: 20 0RF ibuprofen 400 mg tablet 400 mg PO Q6H PRN (Reason: pain) Qty: 14 0RF Paxlovid 300 mg (150 mg x 2)-100 mg tablets,dose pack See Rx Instructions .ROUTE .COMPLEX Qty: 30 0RF Rx Instructions: take TWO 150 mg tablets of nirmatrelvir with ONE 100 mg tablet of ritonavir twice daily for 5 days amoxicillin-pot clavulanate 875-125 mg tablet 1 tab PO BID Qty: 6 0RF Interventions: ED Discharge Assessment Last Done: 02/04/25 21:01 Discharge Date/Time: 02/04/25 21:01 Print Language: Danish
[2025-02-04 18:45] LABS: Strep A Nucleic Acid Negative (Negative)
[2025-02-04 19:17] LABS: Resp Syncy Virus RNA Qual PCR NEGATIVE (Negative); SARS COV2 PCR INHOUSE NEGATIVE (Negative)
--- OUTSIDE RECORDS SUMMARY | 2025-02-04 19:33 | XMS_ITS | Encounter Summary ---
Author Organization [employer] Address [address] [place] [address] Care Team Providers Care Crate Repairer Name Role Phone Nallely Denny MD Primary Care Provider + Encounter Details Date Type Department Care Team ([facility] st Contact Info) Description 02/04/2025 Orders Only [facility] External Provider, [facility] Social History Tobacco Use Types Packs/Day Years Used Date Smoking Tobacco: Never Smokeless Tobacco: Never Alcohol Use Standard Drinks/Week Comments Never 0 (1 standard drink = 0.6 oz pur e alcohol) PHQ-2 Answer Date Recorded Patient Health Questionnaire-2 Score 0 09/13/2022 Housing Stability Answer Date Recorded What is your housing situation today? I have levi zhang 11/24/[address] you li ve. Do you have problems with any of the following? None of the above 11/24/2023 Food Insecurity Answer Date Recorded Within the past 12 months, y ou worried that your food would run out before you got money to buy more: Never True 11/24/2023 Within the past 12 months,th e food you bought just didn't last and you didn't have enough money to get more: Never True 11/2023 Transportation Answer Date Recorded In the past 12 months, has l ack of transportation kept you from medical appts, meetings, work or from getting things needed for daily living? No 11/24/2023 Utilities Answer Date Recorded In the past 12 months, has t he electric, gas, oil or water company threatened to shut off services in your home? No 11/24/2023 Depression Answer Date Recorded Patient Health Questionnaire-2 Score 0 09/13/2022 Internet Access Answer Date Recorded Internet Access Q1 Yes 11/24/2023 Internet Access Q2 Not on file 11/24/2023 Comments No Sex and Gender Information Value Date Recorded Sex Assigned at Female 12/14/2021 10:20 AM EDT Legal Sex Female 10:20 AM EDT Gender Identity Female 12/14/2021 10:20 AM EDT Sexual Orientation Straight 12/14/2021 10 :20 AM EDT documented as of this encounter Plan of Treatment Not on file documented as of this encounter Procedures Procedure Name Priority Date/Time Associated Diagnosis Comments XR KNEE 4+ VIEWS LEFT Routine 02/04/2025 7:04 PM EST XR CHEST 2 VIEWS Routine 02/04/2025 7:04 PM EST SARS COV2/INFLUENZA A/B AND RSV RNA QL NAAT Routine 02/04/2025 6:25 PM EST documented in this encounter Results * XR Chest 2 Views (02/04/2025 7:04 PM EST) Anatomical Region Laterality Modality Chest Radiographic Marichuy ging 02/04/2025 7:04 PM EST Narrative 02/04/2025 7:05 PM EST [place] [address] XRay Report Signed Patient: Villa Graham MR#: [id number] : 1995 Acct:[id number] Age/Sex: 29 / F ADM Date: 02/04/25 Loc: .ED Attending Dr: Ordering Physician: Humphrey Martinez Date of Service: 02/04/25 Procedure(s): XR chest 2V Accession Number(s): [id number] cc: Humphrey Martinez; Nallely Denny MD Reason for Exam: Coughing and fever CLINICAL HISTORY: Coughing and fever 2 view chest x-ray Comparison: Chest x-ray from 09/06/2022 Findings: No consolidation or effusion. No pneumothorax. Normal size heart. No acute fracture, by chest radiographs. IMPRESSION: No consolidation. This document has been electronically signed by: Jacoby Devi MD on 02/04/2025 19:04:25 Dictated By: Jacoby Devi MD Signed By: <Electronically signed by Jacoby Devi MD in OV> 02/04/251903 DD/ 03 TD/TT: 02/04/251903 Electronic Equipment Repairer: Procedure Note Donotuseinterpreter, Image - 02/04/[address] [address] XRay Report Signed Patient: Villa GrahamMR#: [id number] : 1995Acct:[id number] Age/Sex: 29 / FADM Date: 02/04/25 Loc: .ED Attending Dr: Ordering Physician: Humphrey Martinez Date of Service: 02/04/25 Procedure(s): XR chest 2V Accession Number(s): [id number] cc: Humphrey Martinez; Nallely Denny MD Reason for Exam: Coughing and fever CLINICAL HISTORY: Coughing and fever 2 view chest x-ray Comparison: Chest x-ray from 09/06/2022 Findings: No consolidation or effusion. No pneumothorax. Normal size heart. No acute fracture, by chest radiographs. IMPRESSION: No consolidation. This document has been electronically signed by: Jacoby Devi MD on 02/04/2025 19:04:25 Dictated By: Jacoby Devi MD Signed By: <Electronically signed by Jacoby Devi MD in OV> 02/04/251903 DD/ 03 TD/TT: 02/04/251903 Electronic Equipment Repairer: [facility] External Provider IMG XR PROCEDURES Final Result * XR Knee 4+ Views Left (02/04/2025 7:04 PM EST) Anatomical Region Laterality Modality Lower Extremities, Knee Left Radiogra phic Imaging 02/04/2025 7:04 PM EST Narrative 02/04/2025 7:05 PM EST [address] [address] XRay Report Signed Patient: Villa Graham MR#: [id number] : 1995 Acct:[id number] Age/Sex: 29 / F ADM Date: 02/04/25 Loc: HO.ED Attending Dr: Ordering Physician: Humphrey Martinez Date of Service: 02/04/25 Procedure(s): XR knee LT 4V Accession Number(s): [id number] cc: Humphrey Martinez; Nallely Denny MD Reason for Exam: knee pain CLINICAL HISTORY: knee pain 4 view left knee Comparison: None provided Findings: No acute displaced fracture. No dislocation. Trace effusion by radiographs. Mild periosteal thickening including proximal tibia, as can be seen with stress phenomenon and venous stasis. No retained metallic foreign body. IMPRESSION: No acute displaced fracture or dislocation. This document has been electronically signed by: Jacoby Devi MD on 02/04/2025 19:04:08 Dictated By: Jacoby Devi MD Signed By: <Electronically signed by Jacoby Devi MD in OV> 02/04/251903 DD/ 03 TD/TT: 02/04/251903 Electronic Equipment Repairer: Procedure Note Donotuseinterpreter, Image - 02/04/[address] [address] XRay Report Signed Patient: Villa GrahamMR#: [id number] : 1995Acct:[id number] Age/Sex: 29 / FADM Date: 02/04/25 Loc: HO.ED Attending Dr: Ordering Physician: Humphrey Martinez Date of Service: 02/04/25 Procedure(s): XR knee LT 4V Accession Number(s): [id number] cc: Humphrey Martinez; Nallely Denny MD Reason for Exam: knee pain CLINICAL HISTORY: knee pain 4 view left knee Comparison: None provided Findings: No acute displaced fracture. No dislocation. Trace effusion by radiographs. Mild periosteal thickening including proximal tibia, as can be seen with stress phenomenon and venous stasis. No retained metallic foreign body. IMPRESSION: No acute displaced fracture or dislocation. This document has been electronically signed by: Jacoby Devi MD on 02/04/2025 19:04:08 Dictated By: Jacoby Devi MD Signed By: <Electronically signed by Jacoby Devi MD in [place]> 02/04/251903 DD/ 03 TD/TT: 02/04/251903 Electronic Equipment Repairer: [facility] External Provider IMG XR PROCEDURES Final Result * SARS-CoV-2 RNA, Influenza A/B, and RSV RNA, Ql NAAT (02/04/2025 6:25 PM EST) Influenza A PCR NEGATIVE Negative [facility] Influenza B PCR NEGATIVE Negative [facility] Resp Syncy Virus RNA Qual PCR NEGATIVE Negative [facility] SARS COV2 PCR NEGATIVE Negative [facility] Comment:All test results mus t be correlated with clinical findings.Negative results do not preclude SARS-CoV2, influenza Avirus, influenza B virus and/or RSV infectionand should not be used as the sole basis for treatment orother patient management decisions. Negative results must becombined with clinical observations, patient history, andepidemiological information.This test has not been evaluated for monitoring treatment ofinfection.This test has been authorized by the FDA under an EmergencyUse Authorization (EUA) for use by authorized laboratories.Testing performed on the [employer] GeneXpert utilizingreal-time RT-PCR.All SARS CoV2 and positive influenza A/B results arereported to [facility]. 02/04/2025 6:25 PM EST 02/04/2025 6:29 PM EST Generic External Data Provider LAB MICROBIOLOGY - GENERAL ORDERABLES Final Result [facility] [address] [place] [address] [phone] documented in this encounter Visit Diagnoses Not on filedocumented in this encounter Care Teams Crate Repairer Relationship Specialty Start Date End Date Nallely Denny MD [address] [place] [id number] PCP - General Family Medicine 03/29/16 documented as of this encounter
--- OUTSIDE RECORDS SUMMARY | 2025-02-04 19:33 | XMS_ITS | Clinical Summary ---
Author Organization [employer] Address [address] [facility] [address] [place] [address] Care Team Providers Care Senior Informatica Developer Name Role Phone Shirley Denny MD Primary Care Provider + Allergies No known active allergies Medications ibuprofen 800 MG tablet take 1 tablet by oral route 3 times every day with food for 5 days, then PRN for pain 05/06/2021 Active Diclofenac Sodium (Voltaren) 1 % gel Use topical BID 100 g 3 11/09/2023 Active buPROPion SR (Wellbutrin SR) 150 MG 12 hr tablet Take 1 tablet (150 mg) by mouth 2 times daily. Do not crush, chew, or split. 60 tablet 2 09/24/2024 Active Active Problems Problem Noted Date Diagnosed Date Witnessed episode of apnea 09/24/2024 Assessment & Plan (09/24/2024 4:06 PM EDT): Order home sleep study and will follow-up at next appointment Advised to lose weight ASCUS with positive high risk HPV cervical 05/04 Assessment & Plan (05/31/2023 1:47 PM EDT): - pt has been referred to LITIGATION COORDINATOR for colposcopy - discussed with pt relationship between hpv and uterine CA, reassured about current situation and explained hysterectomy is not indicated at this time - f/u with me after LITIGATION COORDINATOR about this issue - discussed about prevention of STI - complete Hep-B titers, 2021 titers were negative and she had one dose. Encounter for cervical Pap smear with pelvic exa m 04/18/2023 Assessment & Plan (04/18/2023 11:58 AM EST): Pelvic exam today wnl FU pap smear results/HPV/STI testing and will call back PRN positive results or FU in 3 months Pt feels safe at home no concern for DV/STDs Counseled regarding STI prevention If today's pap smear/co testing is normal next one will be due in 5 years. Vitamin D deficiency 03/16/2023 Assessment & Plan (03/16/2023 11:09 AM EST): -On supplementation per weight management. -Counseled on outdoor exercise daily. Dietary counseling 03/16/2023 Exercise counseling 03/16/2023 Class 2 obesity due to exces s calories without serious comorbidity with body mass index (BMI) of 35.0 to 35.9 in adult 03/16/2023 Assessment & Plan (09/24/2024 4:06 PM EDT): >>ASSESSMENT AND PLAN FOR OBESITY (BMI 30-39.9) WRITTEN ON 03/16/2023 11:12 AM BY MARYA VÁZQUEZ -Doing well on weight management program. -Reduce meal portions. -Continue with weight management program. -Follow up with bariatric surgeon to decide on surgical intervention or not. Assessment & Plan (09/24/2024 4:06 PM EDT): >>ASSESSMENT AND PLAN FOR OBESITY (BMI 30-39.9) WRITTEN ON 04/18/2023 11:57 AM BY SHIRLEY DENNY MD -Counseled to go back to weight management program and Follow up with bariatric surgeon to decide on surgical intervention or not. . -Reduce meal portions. Assessment & Plan (09/24/2024 4:06 PM EDT): >>ASSESSMENT AND PLAN FOR OBESITY (BMI 30-39.9) WRITTEN ON 05/31/2023 2:14 PM BY RITO MAYA - Discussed re weight reduction options including exercise, life style modifications, diet, referral to application packaging specialist. - Discussed re lower calorie intake, increase dietary fiber - advised pt to f/u with weight reduction program dietitian only - will refer to our dietitian and f/u in 6-8 months - will do Hep-B #3 at next visit Assessment & Plan (09/24/2024 4:06 PM EDT): Discussed re weight reduction options including exercise, life style modifications, diet. Recommended to decrease soda and sugary beverage consumption, increase protein intake with meals (at least 1 portion of protein with each meal) to assist with satiety, increase dietary fiber Recommended at least 150 min/week of moderate intensity exercise. We discussed about pharmacological intervention including Wellbutrin, Topamax, phentermine (which I will prefer to avoid due to history of elevated BP), metformin and GLP's. Will start Wellbutrin due to history of anxiety/cravings. Advised to follow-up with dietitian, referral sent on Follow-up with me in 6 to 7 weeks Tinea corporis 09/13/2022 Assessment & Plan (09/13/2022 9:25 AM EDT): Keep area clean and dry, favor cotton based clothing use lotrisone cream BID for 1 week Encounter for preventive health examination 09/2021 Assessment & Plan (01/21/2022 2:18 PM EST): Patient is encouraged to exercise moderately 4-5x/week. Counseled to increase consumption of fresh fruit, veggies and water. To have frequent and small meals. I have discussed re having protected sex at all times for STI purposes. Pat does not smoke, uses alcohol or any illicit drugs, seems to feel safe at home PAP smear overdue. Will schedule after next RV w me. Adult IZs: Influenza IZ today and recommended to have Covid vax booster. Td due on 2022. Check MMR, Hep B and Varicella titers Ophthalmology : Recently done. Will obtain notes at upcoming appt w me. Labs: TB test and other labs ordered today Dental visit: Uptodate every 6m Carpal tunnel syndrome 01/06/2022 Loss of hair 01/06/2022 Migraine with aura 01/06/2022 Resolved Problems Problem Noted Date Diagnosed Date Resolved Date Mastitis 09/13/2022 09/24/2024 Assessment & Plan (09/13/2022 9:25 AM EDT): resolved at this time. avoid scratching tinea areas, see above. Keep area clean and dry and reconsult PRN Acute bacterial conjunctivitis of left eye 04/29/2022 09/13/2022 Assessment & Plan (04/29/2022 9:49 AM EDT): .sjb Elevated blood pressure reading 01/21/2022 09/24/2024 Assessment & Plan (03/16/2023 11:08 AM EST): -BP normal today. -Believe to have resolved with weight reduction. -Follow up with weight management. Assessment & Plan (01/21/2022 2:10 PM EST): It improved at the end of the visit. RO essential HTN due to Fam Hx. Check BP at home BIW and fu with RN in 3-4w and w me in 2m Order labs Counseled re low salt diet/increase moderate physical activity. Non smoking patient. Class 3 severe obesity due t o excess calories without serious comorbidity with body mass index (BMI) of 40.0 to 44.9 in adult 01/21/2022 Assessment & Plan (01/21/2022 2:18 PM EST): Counseled re low calorie/carb intake Increase exercise He declined nutrition appt today Check lipids, TSH and BMP today FU in 6m Vasomotor rhinitis 01/06/2022 5 Encounters Date Type Department Care Team Description 02/04/2025 Orders Only [facility] External Provider, [facility] 12/06/2024 Telephone [facility] [address] [place] [address] Shirley Denny MD Chart Prep from Last 3 Months Immunizations Immunization Administration Dates Next Due DTaP 11/13/2013 Hep B, adult 05/31/2023,02/05/2022 Influenza Injectable Quadriv alant Preservative Free IIV4 MDCK 04/21/2023 Influenza injectable quadriv alent IIV4 with preservative 11/08/2016 Influenza injectable quadrivalent preservative f ree 11/25/2017 Influenza, seasonal, injectable, preservative fr ee 01/21/2022,11/13/2013 Influenza, trivalent, adjuvanted 11/13/2013 MMR 01/28/2022 Tdap 12/13/2017,09/14/2013 Family History Medical History Relation Name Comments No Known Problems Brother Arthritis Father HTN Mother No Known Problems Sister Relation Name Status Comments Brother Father Mother Sister Social History Tobacco Use Types Packs/Day Years Used Date Smoking Tobacco: Never Smokeless Tobacco: Never Tobacco Cessation:Counseling Given: Not Answered Alcohol Use Standard Drinks/Week Comments Never 0 (1 standard drink = 0.6 oz pur e alcohol) PHQ-2 Answer Date Recorded Patient Health Questionnaire-2 Score 0 09/13/2022 Housing Stability Answer Date Recorded What is your housing situation today? I have levifabio zhang 11/24/[address] you [...] Orientation Straight 12/14/2021 10 :20 AM EDT Last Filed Vital Signs Vital Sign Reading Time Taken Comments Blood Pressure 118/72 09/24/2024 2:24 PM EDT Pulse 80 09/24/2024 2:24 PM EDT Temperature 37.1 C (98.7 F) 09/24/2024 2:24 PM EDT Respiratory Rate 20 09/24/2024 2:24 PM EDT Oxygen Saturation 99% 11/09/2023 9:26 AM EDT Inhaled Oxygen Concentration - - Weight 92 kg (202 lb 12.8 oz) 09/24/2024 2:24 PM EDT Height 160 cm (5' 3 ) 11/09/2023 9:26 AM EDT Body Mass Index 35.92 11/09/2023 9:26 AM EDT Plan of Treatment Health Maintenance Due Date Last Done Comments Alcohol/Substance Use Screening 2006 Family Planning (PISQ) 2009 HPV Vaccines (1 - 3-dose series) 2009 Hepatitis B Vaccines (3 of 3 - 19+ 3-dose series) 07/26/2023 05/31/2023, 02/05/2022 Depression Screening 09/14/2023 09/13/2022, 09/14/19 Cervical Cancer Screening 06/12/2024 HPV/Cotest 06/12/2024 04/18/2023 Pap Smear 06/12/2024 04/18/2023 COVID-19 Vaccine (3 - 2024- season) 2024 07/15/2020, 06/17/2020 Influenza Vaccine (#1) 2024 , 01/21/2022, 11/25/2017, Additional history exists Tobacco Screening 11/08/2024 11/09/2023 SDOH Screening 11/23/2024 11/24/2023 Disability Screening 09/23/2025 09/23/2024 DTaP/Tdap/Td Vaccines (4 - Td or Tdap) 12/14/2027 12/13/2017, 11/13/2013, 09/14/2013 Lipid Panel 09/29/2029 09/29/2024, 07/05/2022, 01/22/2022 Zoster Vaccines (1 of 2) 2044 RSV Patients and Patients Aged 60 years or older (1 - 1-dose 75+ series) 2069 HIV Screening Completed 09/29/2024 Hepatitis C Screening Completed 09/29/2024, 022 HIB Vaccines Aged Out No longer eligi ble based on patient's age to complete this topic Hepatitis A Vaccines Aged Out No long er eligible based on patient's age to complete this topic IPV Vaccines Aged Out No longer eligi ble based on patient's age to complete this topic Meningococcal B Vaccine Aged Out No l onger eligible based on patient's age to complete this topic Meningococcal Vaccine Aged Out No matty jess eligible based on patient's age to complete this topic Pneumococcal Vaccine: Pediatrics (0 to 5 Years) and At-Risk Patients (6 to 49) Years Aged Out No longer eligible based on patient's age to complete this topic RSV under 20 months Aged Out No longe r eligible based on patient's age to complete this topic Rotavirus Vaccines Aged Out No longer eligible based on patient's age to complete this topic Procedures Procedure Name Priority Date/Time Associated Diagnosis Comments XR CHEST 2 VIEWS Routine 02/04/2025 7:04 PM EST XR KNEE 4+ VIEWS LEFT Routine 02/04/2025 7:04 PM EST SARS COV2/INFLUENZA A/B AND RSV RNA QL NAAT Routine 02/04/2025 6:25 PM EST STREP A NUCLEIC ACID Routine 02/04/2025 6:25 PM EST HEPATITIS PANEL, GENERAL Routine 09/29/2024 9:57 AM EDT Preventative health care HIV 1/2 ANTIGEN/ANTIBODY, FOURTH GENERATION W/RFL Routine 09/29/2024 9:57 AM EDT Preventative health care LIPID PANEL WITH REFLEX TO DIRECT LDL Routine 09/29/2024 9:57 AM EDT Class 2 obesity due to excess calories without serious comorbidity with body mass index (BMI) of 35.0 to 35.9 in adult HPV MRNA E6/E7 REFLEX TO HPV 16, 18/45 Routine 04/18/2023 11:32 AM EST PAP SMEAR Routine 04/18/2023 11:32 AM EST from Last 3 Months or Most Recently Relevant to Health Maintenance Results * XR Knee 4+ Views Left (02/04/2025 7:04 PM EST) Anatomical Region Laterality Modality Lower Extremities, Knee Left Radiogra phic Imaging 02/04/2025 7:04 PM EST Narrative 02/04/2025 7:05 PM EST [facility] [address] [place] [address] XRay Report Signed Patient: Villa Graham MR#: [id number] : 1995 Acct:[id number] Age/Sex: 29 / F ADM Date: 02/04/25 Loc: HO.ED Attending Dr: Ordering Physician: Humphrey Martinez Date of Service: 02/04/25 Procedure(s): XR knee LT 4V Accession Number(s): [id number] cc: Humphrey Martinez; Shirley Denny MD Reason for Exam: knee pain [...] in OV> 02/04/251903 DD/ 03 TD/TT: 02/04/251903 Director Multimedia: Procedure Note Donotuseinterpreter, Image - 02/04/2025 [facility] [address] [place] [address] XRay Report Signed Patient: Villa GrahamMR#: [id number] : 1995Acct:[id number] Age/Sex: 29 / FADM Date: 02/04/25 Loc: HO.ED Attending Dr: Ordering Physician: Humphrey Martinez Date of Service: 02/04/25 Procedure(s): XR knee LT 4V Accession Number(s): [id number] cc: Humphrey Martinez; Shirley Denny MD Reason for Exam: knee pain [...] in OV> 02/04/251903 DD/ 03 TD/TT: 02/04/251903 Director Multimedia: [facility] External Provider IMG XR PROCEDURES Final Result * XR Chest 2 Views (02/04/2025 7:04 PM EST) Anatomical Region Laterality Modality Chest Radiographic Marichuy ging 02/04/2025 7:04 PM EST Narrative 02/04/2025 7:05 PM EST [place] [address] XRay Report Signed Patient: Villa Graham MR#: [id number] : 1995 Acct:[id number] Age/Sex: 29 / F ADM Date: 02/04/25 Loc: HO.ED Attending Dr: Ordering Physician: Humphrey Martinez Date of Service: 02/04/25 Procedure(s): XR chest 2V Accession Number(s): [id number] cc: Humphrey Martinez; Shirley Denny MD Reason for Exam: Coughing and [...] in OV> 02/04/251903 DD/ 03 TD/TT: 02/04/251903 Director Multimedia: Procedure Note Donotuseinterpreter, Image - 02/04/2025 [place] [address] XRay Report Signed Patient: Villa GrahamMR#: [id number] : 1995Acct:[id number] Age/Sex: 29 / FADM Date: 02/04/25 Loc: .ED Attending Dr: Ordering Physician: Humphrey Martinez Date of Service: 02/04/25 Procedure(s): XR chest 2V Accession Number(s): [id number] cc: Humphrey Martinez; Shirley Denny MD Reason for Exam: Coughing and [...] in OV> 02/04/251903 DD/ 03 TD/TT: 02/04/251903 Director Multimedia: [facility] External Provider IMG XR PROCEDURES Final Result * Strep A Nucleic Acid (02/04/2025 6:25 PM EST) IDNOW SERIAL# [id number] [facility] Strep A Nucleic Acid Negative Negative [facility] Comment:All test results mus t be correlated with clinical findings.This test has not been evaluated for monitoring treatment ofinfection.Additional follow-up testing using the culture method isrequired if the result is negative and clinical symptomspersist, or in the event of an acute rheumatic feveroutbreak. 02/04/2025 6:25 PM EST 02/04/2025 6:29 PM EST Generic External Data Provider LAB MICROBIOLOGY - GENERAL ORDERABLES Final Result Performing Organization Address [facility] Co de Phone Number [facility] [address] [place] [phone] * SARS-CoV-2 RNA, Influenza A/B, and RSV RNA, Ql NAAT (02/04/2025 6:25 PM EST) Influenza A PCR NEGATIVE Negative [facility] Influenza B PCR NEGATIVE Negative [facility] Resp Syncy Virus RNA Qual PCR NEGATIVE Negative [facility] SARS COV2 PCR NEGATIVE Negative [facility] Comment:All test results mus t [...] use by authorized laboratories.Testing performed on the [employer] GeneXpert utilizingreal-time RT-PCR.All SARS CoV2 and positive influenza A/B results arereported to [facility]. 02/04/2025 6:25 PM EST 02/04/2025 6:29 PM EST Generic External Data Provider LAB MICROBIOLOGY - GENERAL ORDERABLES Final Result Performing Organization Address [facility]/ZIP Co de Phone Number [facility] [address] [place] [phone] * (ABNORMAL) Lipid Panel with Reflex to Direct LDL (09/29/2024 9:57 AM EDT) Triglycerides 99 <150 mg/dL [facility] Comment:Desirable Triglyceri de: less than 150 mg/dLBorderline High Triglyceride 150-199 mg/dLHigh Triglyceride: 200-499 mg/dLVery High Triglyceride: greater than or equal to 5OO mg/dL Cholesterol 180 <200 mg/dL [facility] Comment:Desirable Cholestero l: less than 200 mg/dLBorderline High Cholesterol: 200-239 mg/dLHigh Cholesterol: greater than 239 mg/dL LDL Cholesterol Calculated 122(H) <100 mg/dL [facility] Comment:Desirable LDL: less than 100 mg/dLNear Optimal/Above Optimal LDL: 110- 129 mg/dLBorderline High LDL: 130-159 mg/dLHigh LDL: 160-189 mg/dLVery High LDL: greater than or equal to 190 mg/dL HDL Cholesterol 39(L) >40 mg/dL [facility] Comment:Desirable HDL: great er than 40 mg/dL Note: This HDL assay may give artificially low results in patients with liver disease. Blood 09/29/2024 9:57 AM EDT 09/29/2024 9:57 AM EDT us Shirley Denny MD LAB BLOOD ORDERABLES Fin al Result [facility] [address] [place] [phone] * Hepatitis Panel, General (09/29/2024 9:57 AM EDT) Hepatitis A IgM Nonreactive Nonreactive [facility] Comment:IgM antibodies to [place] V not detected; does not exclude earlyacute or recovered HAV infection. ~Hepatitis B Surface Antibody REACTIVE Nonreactive [facility] Comment:REACTIVE: > 11.99 mI U/mL Hepatitis B Core Antibody Nonreactive Nonreactive [facility] Hepatitis C Antibody Nonreactive Nonreactive [facility] Comment:Antibodies to HCV no t detected; does not exclude early acuteHCV infection. Hepatitis B Surface Ag Negative Negative [facility] Blood 09/29/2024 9:57 AM EDT 09/29/2024 9:57 AM EDT Shirley Denny MD LAB BLOOD ORDERABLES Fin al Result Performing Organization Address [facility]/ZIP Co de Phone Number [facility] [address] [place] [phone] * HIV-1/2 Antigen and Antibodies, Fourth Generation, with Reflexes (09/29/2024 9:57 AM EDT) Pathologist [facility] HIV AB/AG Nonreactive Nonreactive [facility] Comment:HIV-1 p24 Ag and/or HIV-1/HIV-2 Ab not detected.A test result that is nonreactive does not exclude thepossibility of exposure to or infection with HIV-1 and/orHIV-2. Nonreactive results in this assay for individualswith prior exposure to HIV-1 and/or HIV-2 may be due toantigen and antibody levels that are below the limit ofdetection of this assay.The [employer] HIV Ag/Ab Combo assay result andsupplemental assay results should be interpreted inconjunction with the patient's clinical presentation,history and other laboratory results. If the results areinconsistent with clinical evidence, additional testing issuggested to confirm the result. Blood Venous blood specimen / Unknown 09/29/2024 9:57 AM EDT 09/29/2024 9:57 AM EDT Shirley Denny MD LAB BLOOD ORDERABLES Fin al Result Performing Organization Address [facility]/ZIP Co de Phone Number [facility] [address] [place] [phone] * (ABNORMAL) HPV mRNA E6/E7 w/Reflex to HPV Genotypes 16, 18/45 (04/18/2023 11:32 AM EST) HPV nRNA E6/E7 Detected(A ) Not Detected [facility] Comment:Methodology: Transcr iption-Mediated AmplificationThis assay detects E6/E7 viral messenger RNA (mRNA) from 14high-risk HPV types (16,18,31,33,35,39,45,51,52,56,58,59,66,68).Cervical sources are required for HPV testing.If a vaginal source from a patient who has had atotal hysterectomy with removal of cervix wassubmitted, please contact the testing laboratoryfor alternative testing options.For additional information, please refer [email or web address]/GAZ109k9(This link if provided for information/educational purposes only.)THIS TEST WAS PERFORMED AT:[employer] [address] [id number] VÁSQUEZ MD HPV 16 RNA NOT DETECTED NOT DETECTED [facility] HPV 18/45 RNA NOT DETECTED NOT DETECTED [facility] Comment:Methodology: Transcr iption Mediated AmplificationCervical sources are required for HPV testing.If a vaginal source from a patient who has had atotal hysterectomy with removal of cervix wassubmitted, please contact the testing laboratoryfor alternative testing options.THIS TEST WAS PERFORMED AT:[facility] [place] [id number] VÁSQUEZ MD 04/18/2023 11:3 2 AM EST 04/19/2023 7:30 AM EST Shirley Denny MD LAB CYTOLOGY ORDERABLES Final Result [facility] [address] [place] [phone] * Pap Smear (04/18/2023 11:32 AM EST) 04/18/2023 11:3 2 AM EST 04/19/2023 7:30 AM EST Narrative [facility] - 04/27/2023 5:54 PM EDT ----- ------- Name: Villa Graham Age/Sex: 27/F : 1995 Unit#: [id number] Attend Dr: Shirley Denny MD Re04/18/23 Status: DEP [facility]F [facility] Disch: ----- ------- SPEC : [id number] RECD: 04/19/23 STATUS: TYLER MYERS NUM: [id number] BIA: 04/18/23 [facility] [place] DR: Shirley Denny MD ENTERED: 04/19/23 SP TYPE: Pap Smr MARIA FERNANDA DR: ORDERED: Pap Smear, PAP path review Interpretation General Category: Epithelial cell abnormality. Adequacy: Endocervical component present. Interpretation: Atypical squamous cells of undetermined significance. Abundant acute inflammation. HPV mRNA E6/E7: DETECTED This assay detects E6/E7 viral messenger RNA (mRNA) from 14 high-risk HPV types (16, 18, 31, 33, 35, 39, 45, 51, 52, 56, 58, 59, 66, 68) HPV Type 16 RNA: Not Detected HPV Type 18/45 RNA: Not Detected HPV testing performed by [email or web address], [place], [place]. See reference laboratory portion of the EMR for entire report. Clinical Information LMP: 04/04/2023 Previous PAP test: Unknown date, WNL Material Received ThinPrep-Cervical ----- ------- Signed (signature on file) Lizabeth Martell 04/27/23 1754 ----- ------- END OF REPORT us Shirley Denny MD LAB CYTOLOGY ORDERABLES Final Result [facility] [address] [place] [address] [phone] from Last 3 Months or Most Recently Relevant to Health Maintenance Insurance [employer] Care Teams Senior Inform[employer] Developer Relationship Specialty Start Date End Date Shirley Denny MD [address] [place] [phone] PCP - General Family Medicine 03/29/16
[2025-02-04 21:01] VITALS: BP 136/71; PULSE 85; RESP 18; TEMP 36.9; O2SAT 97
== END 2025-02-04 21:01 | disposition home or self-care (01) ==
PROVIDERS: Physician Assistant; Emergency Provider Emergency Medicine Emergency Medical Services; PCP Internal Medicine
DX: J11.1 Influenza due to unidentified influenza virus with other respiratory manifestations (principal); R05.9 Cough, unspecified; M79.10 Myalgia, unspecified site; M25.562 Pain in left knee; R50.9 Fever, unspecified; Z03.818 Encounter for observation for suspected exposure to other biological agents ruled out
CPT/HCPCS: 71046; 73564; 87637; 87651; 99282; 99283

== ENCOUNTER → 2025-02-04 18:16 | Outpatient (BNV) | payer MEDICAID, SELFPAY | PROVIDERS: PCP Internal Medicine; Visit Provider Radiology Neuroradiology | DX: M25.562 Pain in left knee (principal); R05.9 Cough, unspecified; R50.9 Fever, unspecified | CPT/HCPCS: 71046; 73564 ==